=== PATIENT | female | born 1960 | race Caucasian/White ===

== ENCOUNTER 2023-12-05 15:34 | Inpatient (IN) | payer MEDICARE, MEDICAID, SELFPAY ==
[2023-12-05] VITALS (10 sets, daily range): BP systolic 124–144; BP diastolic 51–71; PULSE 82–96; RESP 18–24; TEMP 37.4–38; O2SAT 90–95; BMI 52.6
--- NOTE | 2023-12-05 15:51 | ED.EXTPRO ---
HPI - Extremity Problem General Chief complaint: Extremity Problem,Nontraumatic Stated complaint: Cellulitis Time Seen by Provider: 12/05/23 15:37 Source: patient and EMS Mode of arrival: EMS History of Present Illness HPI Narrative: Patient is a 63-year-old female she stated that her symptoms started approximately 1 month ago where she sustained a injury to her right lower extremity. It was not until about a week ago when she started to get redness around the area and some pain. No fevers. She was initially started on Keflex. Stated that her pain did not improve. She went to an outside emergency department last evening. Had an incision and drainage done. Was switched to doxycycline. Has not started the doxycycline because the pharmacy can not get her that medicine until tomorrow morning. She did have 1 dose prior to discharge. She states that she went home last evening and today she had drainage from the area to the point where she is soaked through the bandage and on her sheets and bed. She states that she feels like that she needs admitted to the hospital for IV antibiotics. Related Data Home Medications Medication Instructions Recorded Confirmed acetaminophen 500 mg tablet 1,000 mg BID PRN Pain (Scale Score 12/05/23 12/05/23 1-3) albuterol sulfate 2.5 mg/3 mL mg inhalation 12/05/23 (0.083 %) solution for nebulization apixaban 5 mg tablet (Eliquis) 5 mg PO BID 12/05/23 12/05/23 atorvastatin 40 mg tablet 40 mg PO DAILY 12/05/23 12/05/23 benzonatate 100 mg capsule mg PO PRN Cough 12/05/23 budesonide-formoterol HFA 160 inhalation 12/05/23 mcg-4.5 mcg/actuation aerosol inhaler (Symbicort) cholecalciferol (vitamin D3) 125 12/05/23 mcg (5,000 unit) tablet (Vitamin D3) digoxin 250 mcg (0.25 mg) tablet 250 mcg PO DAILY 12/05/23 12/05/23 diltiazem HCl 300 mg capsule,24 300 mg PO DAILY 12/05/23 12/05/23 hr,extended release doxycycline hyclate 100 mg tablet 100 mg PO BID 12/05/23 12/05/23 fluticasone propionate 50 spray intranasal 12/05/23 mcg/actuation nasal spray,suspension guaifenesin 600 mg tablet, 600 mg PO BID 12/05/23 12/05/23 extended release 12 hr hydroxyzine HCl 25 mg tablet PO Q6H PRN Anxiety 12/05/23 insulin glargine 100 unit/mL (3 10 unit SUBCUT 12/05/23 mL) subcutaneous pen (Lantus Solostar U-100 Insulin) levothyroxine 150 mcg tablet 150 mcg PO DAILY 12/05/23 12/05/23 liothyronine 25 mcg tablet 25 mcg PO DAILY 12/05/23 12/05/23 magnesium chloride 64 mg mg PO 12/05/23 tablet,extended release melatonin 3 mg tablet 9 mg PRN Insomnia 12/05/23 metformin 1,000 mg 24 hr 1,000 mg PO DAILY 12/05/23 12/05/23 tablet,extended release (gastric reten.) metformin 500 mg 24 hr 500 mg PO DAILY 12/05/23 12/05/23 tablet,extended release (gastric retention) methadone 10 mg tablet 10 mg PO BID 12/05/23 12/05/23 omeprazole 20 mg capsule,delayed 20 mg PO DAILY 12/05/23 12/05/23 release oxycodone 10 mg tablet 10 mg PO 3XD PRN Pain (Scale Score 12/05/23 12/05/23 7-10) potassium chloride 20 mEq 20 meq PO BID 12/05/23 12/05/23 tablet,extended release(part/cryst) pregabalin 75 mg capsule 75 mg PO BID 12/05/23 12/05/23 sennosides 8.6 mg tablet (senna) mg BID 12/05/23 sertraline 100 mg tablet 200 mg PO DAILY 12/05/23 12/05/23 sitagliptin phosphate 50 mg tablet 50 mg PO DAILY 12/05/23 12/05/23 (Januvia) tiotropium bromide 2.5 2 puff inhalation DAILY 12/05/23 12/05/23 mcg/actuation mist for inhalation (Spiriva Respimat) tizanidine 4 mg tablet PO Q6H PRN Muscle Spasm 12/05/23 torsemide 20 mg tablet 40 mg PO 12/05/23 torsemide 20 mg tablet 60 mg PO DAILY 12/05/23 12/05/23 Allergies Allergy/AdvReac Type Severity Reaction Status Date / Time Sulfa (Sulfonamide Allergy Verified 12/05/23 15:46 Antibiotics) Review of Systems Constitutional Constitutional: Reports system reviewed and no additional complaints, except as documented Musculoskeletal Musculoskeletal: Reports system reviewed and no additional complaints, except as documented Integumentary/Breasts Skin/Breast: Reports system reviewed and no additional complaints, except as documented Neurologic Neurologic: Reports system reviewed and no additional complaints, except as documented Patient History Medical History Anxiety Depression CHF (congestive heart failure) COPD (chronic obstructive pulmonary disease) Diabetic nephropathy GERD (gastroesophageal reflux disease) Hypothyroid Afib Diabetes Social History Smoking Status: Former smoker Smoking Status: Former smoker Substance Use Type: does not use Exam Initial Vital Signs Initial Vital Signs: Vital Signs Temperature 99.3 F 12/05/23 15:37 Pulse Rate 96 H 12/05/23 15:37 Respiratory Rate 18 12/05/23 15:37 Blood Pressure 144/67 H 12/05/23 15:37 Pulse Oximetry 94 12/05/23 15:37 Oxygen Delivery Method Room Air 12/05/23 15:37 Const General: No ill appearing HENMT Head: normal to inspection and normocephalic Skin Other: Patient has an extensive very redness to her right lower extremity. There is approximately a 2 cm incision with apparent packing coming out of this incision on her right anterior portion of the distal knee. It is draining a small amount of blood. Neuro Sensory Exam: no sensory deficits noted Extrem Other: Cellulitis to the right lower extremity Course Orders Ordered: ED Orders 12/05/23 16:03 Basic Metabolic Panel Stat Complete Blood Count AUTO DIFF Stat Lactate (Lactic Acid) Stat 12/05/23 16:17 Blood Culture Stat 12/05/23 16:59 Consult to Internal Medicine Stat CT LE RT w con Stat Vancomycin HCl (Vancomycin) 1,000 mg in 200 mls @ 200 mls/hr IV NOW ONE Stop: 12/05/23 17:55 Sodium Chloride (Normal Saline 0.9%) 1,000 mls @ 125 mls/hr IV CONT JENNIFER Last Admin: 12/05/23 17:22 Dose: 125 mls/hr Documented By: Discontinued Medications Doxycycline Hyclate (Doxycycline Hyclate 100 Mg Tablet) 100 mg PO NOW ONE Stop: 12/05/23 16:17 Last Admin: 12/05/23 16:33 Dose: 100 mg Documented By: RADHIKA Ceftriaxone Sodium 1,000 mg/ (Sodium Chloride) 100 mls @ 200 mls/hr IV NOW ONE Stop: 12/05/23 16:57 Last Admin: 12/05/23 17:00 Dose: 200 mls/hr Documented By: Lidocaine/Epinephrine (Lidocaine 2% W/Epi Inj 10 Ml Vial) 20 ml INJ INTRA-OP ONE Stop: 12/05/23 16:56 Vital Signs Vital signs: Vital Signs - 8 hr 12/05/23 15:37 12/05/23 15:44 12/05/23 16:00 Temperature 99.3 F Pulse Rate 96 H 93 H 93 H Respiratory Rate 18 Blood Pressure 144/67 H Pulse Oximetry 94 93 92 Oxygen Delivery Method Room Air 12/05/23 16:30 12/05/23 16:30 12/05/23 17:00 Temperature Pulse Rate 87 92 H Respiratory Rate 24 24 Blood Pressure 124/71 Pulse Oximetry 90 L 92 Oxygen Delivery Method 12/05/23 17:00 Temperature Pulse Rate Respiratory Rate Blood Pressure 125/58 L Pulse Oximetry Oxygen Delivery Method MDM - Extremity (Nontraumatic) Medical Records Attestation: I reviewed the patient's medical records. Lab Data Attestation: I reviewed the patient's lab results. 12/05/23 16:03 12/05/23 16:03 Labs: Lab Results 12/05/23 Range/Units 16:03 WBC 17.8 H (4.5-11.0) X10^3/uL RBC 3.68 L (4.0-5.2) X10^6/uL Hgb 8.7 L (12.0-16.0) g/dL Hct 26.5 L (36-46) % MCV 72.1 L (80-100) fL MCH 23.6 L (26-34) PG MCHC 32.7 (30-36) % RDW 18.0 H (11.6-14.8) % Plt Count 394 (150-400) X10^3/uL Neut % (Auto) 85.7 H (50-75) % Lymph % (Auto) 7.5 L (25-40) % [place] % (Auto) 5.2 (3-14) % Eos % (Auto) 1.3 L (2-4) % Baso % (Auto) 0.3 (0-2) % Neut # (Auto) 59037 H (1080-5674) /uL Lymph # (Auto) 1300 (5404-6591) /uL [place] # (Auto) 900 (0-900) /uL Eos # (Auto) 200 (0-450) /uL Baso # (Auto) 0 (0-100) /uL Sodium 134 L (137-145) mmol/L Potassium 4.2 (3.4-5.1) mmol/L Chloride 93 L (98-107) mmol/L Carbon Dioxide 32 (22-32) mmol/L BUN 26 H (7-17) mg/dL Creatinine 0.94 (0.52-1.04) mg/dL Estimated GFR > 60 (>60) mL/min BUN/Creatinine Ratio 27.7 H (6-22) Glucose 192 H (80-110) mg/dL Lactate 2.0 (0.7-2.1) mmol/L Calcium 8.6 (8.4-10.2) mg/dL MDM Narrative Medical decision making narrative: Review of the medical records shows that she was seen in an outpatient emergency department yesterday where she had an incision and drainage of an abscess on the anterior medial portion just distal to the knee. According to that note there was quite a bit of purulent drainage from the area. A packing was placed. She was febrile at the time and tachycardic but no labs were done. She was switched from Keflex to doxycycline. She was started on Keflex earlier in the week when she had an emergency department visit at an outside facility. At that time was not tachycardic and not febrile. It appears that the Keflex was not working for her. She returns today because of continued drainage which is not surprising given the incision and drainage. She was extensive redness to the right lower extremity. There was a line that was drawn around the redness but she states that was done earlier this week. The redness does extend quite a bit outside of the line. Patient was not tachycardic but does have heart rate greater than 90. She was afebrile. Has a leukocytosis of 17 with a left shift. Bedside ultrasound shows that the abscess that was drained yesterday appears to be completely decompressed. There was a 2nd abscess noted that appears to be distinct from the 1st 1 on the anterior lateral portion just distal to the knee. I did discuss the case with Dr. waller hospitalist on-call who recommended a CT scan for further evaluation. Patient initially was given oral doxycycline however then was given IV vancomycin and Rocephin. She has never been hypotensive. Lactate is 2. We will hold on incision and drainage of potential 2nd abscess until patient can be evaluated by General surgery. Discussed admission with the patient. She expressed understanding and agreement. Discharge Plan Departure Patient Disposition: Admitted As Inpatient Clinical Impression: Cellulitis Admit Date/Time: 12/05/23 17:02 Admit Provider: Jarrod Waller
[2023-12-05 16:13] LABS: Add Manual Diff / Slide Review NO; Basophils Absolute Auto 0 /uL (0-100); Basophils Percent Auto 0.3 % (0-2); Eosinophils Absolute Auto 200 /uL (0-450); Eosinophils Percent Auto 1.3 % (2-4); Hematocrit 26.5 % (36-46); Hemoglobin 8.7 g/dL (12.0-16.0); Lymphocytes Absolute Auto 1300 /uL (1100-4500); Lymphocytes Percent Auto 7.5 % (25-40); Mean Corpuscular HGB Conc 32.7 % (30-36); Mean Corpuscular Hemoglobin 23.6 PG (26-34); Mean Corpuscular Volume 72.1 fL (80-100); Monocytes Absolute Auto 900 /uL (0-900); Monocytes Percent Auto 5.2 % (3-14); Neutrophils Absolute Auto 15300 /uL (1500-7000); Neutrophils Percent Auto 85.7 % (50-75); Platelet Count 394 X10^3/uL (150-400); Red Blood Cell Count 3.68 X10^6/uL (4.0-5.2); White Blood Cell Count 17.8 X10^3/uL (4.5-11.0)
[2023-12-05 16:24] LABS: BUN Creatinine Ratio 27.7 (6-22); Blood Urea Nitrogen 26 mg/dL (7-17); Calcium 8.6 mg/dL (8.4-10.2); Carbon Dioxide 32 mmol/L (22-32); Chloride 93 mmol/L (98-107); Estimated Glomerular Filt Rate > 60 mL/min (>60); Glucose 192 mg/dL (80-110); HEMOLYSIS 32 (0-50); Potassium 4.2 mmol/L (3.4-5.1); Sodium 134 mmol/L (137-145)
[2023-12-05] MEDS: DOXYCYCLINE HYCLATE 100 MG TABLET PO (16:33)
--- NOTE | 2023-12-05 16:59 | DI.CT.S_ITS ---
PROCEDURE: CT LE RT W CON INDICATIONS: cellulitis from knee to ankle eval for deep abscess TECHNIQUE: After the administration of intravenous contrast, 3 mm axial sections acquired of the right lower extremity , with coronal and sagittal reformats. COMPARISON: None. FINDINGS: Image quality: Diagnostic. Bones: No acute osseous abnormality. Degenerative changes of the knee. No periosteal reaction or cortical erosion. Soft tissues: There is cutaneous thickening and subcutaneous irregularity at the anterior medial aspect of the mid lower leg consistent with history of cellulitis. There is subcutaneous fluid collection measuring approximately 9.1 x 3.9 x 5.3 cm (, ). The more anterior aspect of the fluid collection contains a foci of gas. The fluid collection and gas does not extend into the deep muscle compartment. There are prominent varicose veins. IMPRESSION: Right lower extremity cellulitis at the anterior medial aspect of the mid lower leg. Subcutaneous fluid collection with areas of gas concerning for abscess. No evidence of intramuscular or deep space infection. No acute bony abnormality. Approved by: Janell Manuel M.D.,Ph.D. on 12/05/2023 at 18:15
[2023-12-05] MEDS: cefTRIAXone 1,000 MG in SODIUM CHLORIDE 0.9% 100 ML 200 MG IV (17:00)
[2023-12-05] MEDS: SODIUM CHLORIDE 0.9% 1,000 ML 125 ML IV (17:22)
--- NOTE | 2023-12-05 17:51 | P.HP_ITS ---
History of Present Illness History of Present Illness Date Patient Seen: 12/05/23 Time Patient Seen: 17:51 Chief complaint: Cellulitis Narrative: This is a 63 F with PMH of DM2, GERD, Obesity, prior R foot osteomyelitis, chronic afib on anticoagulation, HTN, hypothyroidism, chronic pain on methadone, chronic lower extremity edema, reported diastolic heart failure who presents with right leg pain and worsening swelling. She was seen at an OSH ER yesterday, had an I&D of a right leg abscess. Antibiotics were changed from cephalexin to doxycycline and she was given an orthopedics referral from the ER as the wound was overlying her right knee. Patient lives at [facility] in [place]. She was brought to the [place] ER today for continued pain, worsening drianage from her bandages and concern about larger abscess. She denies fever, abdominal pain, nausea, vomiting, foot pain or hip pain. In the ER, she had elevated WBC at 17.8, but was afebrile. Glucose was 192, remainder of her chemistries were unremarkable. Bedside ultrasound with ER provider showed abscessess in multiple locations, CT scan was done which showed no knee joint involvement but did show 9x4x5 abscess. General surgery was asked to consult for operative I&D. She was admitted to medicine, started on ceftriaxone and vancomycin. [facility] Medical History Anxiety Depression CHF (congestive heart failure) COPD (chronic obstructive pulmonary disease) Diabetic nephropathy GERD (gastroesophageal reflux disease) Hypothyroid Afib Diabetes Surgical History History of incision and drainage Social History household members: none Smoking Status: Former smoker alcohol intake: never Meds Home Medications and Allergies Home Medications Medication Instructions Recorded Confirmed Type acetaminophen 500 mg tablet 1,000 mg BID PRN Pain (Scale Score 12/05/23 12/05/23 History 1-3) albuterol sulfate 2.5 mg/3 mL mg inhalation 12/05/23 History (0.083 %) solution for nebulization apixaban 5 mg tablet (Eliquis) 5 mg PO BID 12/05/23 12/05/23 History atorvastatin 40 mg tablet 40 mg PO DAILY 12/05/23 12/05/23 History benzonatate 100 mg capsule mg PO PRN Cough 12/05/23 History budesonide-formoterol HFA 160 inhalation 12/05/23 History mcg-4.5 mcg/actuation aerosol inhaler (Symbicort) cholecalciferol (vitamin D3) 125 12/05/23 History mcg (5,000 unit) tablet (Vitamin D3) digoxin 250 mcg (0.25 mg) tablet 250 mcg PO DAILY 12/05/23 12/05/23 History diltiazem HCl 300 mg capsule,24 300 mg PO DAILY 12/05/23 12/05/23 History hr,extended release doxycycline hyclate 100 mg tablet 100 mg PO BID 12/05/23 12/05/23 History fluticasone propionate 50 spray intranasal 12/05/23 History mcg/actuation nasal spray,suspension guaifenesin 600 mg tablet, 600 mg PO BID 12/05/23 12/05/23 History extended release 12 hr hydroxyzine HCl 25 mg tablet PO Q6H PRN Anxiety 12/05/23 History insulin glargine 100 unit/mL (3 10 unit SUBCUT 12/05/23 History mL) subcutaneous pen (Lantus Solostar U-100 Insulin) levothyroxine 150 mcg tablet 150 mcg PO DAILY 12/05/23 12/05/23 History liothyronine 25 mcg tablet 25 mcg PO DAILY 12/05/23 12/05/23 History magnesium chloride 64 mg mg PO 12/05/23 History tablet,extended release melatonin 3 mg tablet 9 mg PRN Insomnia 12/05/23 History metformin 1,000 mg 24 hr 1,000 mg PO DAILY 12/05/23 12/05/23 History tablet,extended release (gastric reten.) metformin 500 mg 24 hr 500 mg PO DAILY 12/05/23 12/05/23 History tablet,extended release (gastric retention) methadone 10 mg tablet 10 mg PO BID 12/05/23 12/05/23 History omeprazole 20 mg capsule,delayed 20 mg PO DAILY 12/05/23 12/05/23 History release oxycodone 10 mg tablet 10 mg PO 3XD PRN Pain (Scale Score 12/05/23 12/05/23 History 7-10) potassium chloride 20 mEq 20 meq PO BID 12/05/23 12/05/23 History tablet,extended release(part/cryst) pregabalin 75 mg capsule 75 mg PO BID 12/05/23 12/05/23 History sennosides 8.6 mg tablet (senna) mg BID 12/05/23 History sertraline 100 mg tablet 200 mg PO DAILY 12/05/23 12/05/23 History sitagliptin phosphate 50 mg tablet 50 mg PO DAILY 12/05/23 12/05/23 History (Januvia) tiotropium bromide 2.5 2 puff inhalation DAILY 12/05/23 12/05/23 History mcg/actuation mist for inhalation (Spiriva Respimat) tizanidine 4 mg tablet PO Q6H PRN Muscle Spasm 12/05/23 History torsemide 20 mg tablet 40 mg PO 12/05/23 History torsemide 20 mg tablet 60 mg PO DAILY 12/05/23 12/05/23 History Allergies Allergy/AdvReac Type Severity Reaction Status Date / Time Sulfa (Sulfonamide Allergy Verified 12/05/23 15:46 Antibiotics) Review of Systems Review of Systems Narrative: All other systems reviewed with the patient and are negative unless otherwise stated. Exam Vital Signs (past 8 hours): - 12/05/23 15:37 12/05/23 15:44 12/05/23 16:00 Temperature 99.3 F Pulse Rate 96 H 93 H 93 H Respiratory Rate 18 Blood Pressure 144/67 H Pulse Oximetry 94 93 92 Oxygen Delivery Method Room Air 12/05/23 16:30 12/05/23 16:30 12/05/23 17:00 Temperature Pulse Rate 87 92 H Respiratory Rate 24 24 Blood Pressure 124/71 Pulse Oximetry 90 L 92 Oxygen Delivery Method 12/05/23 17:00 Temperature Pulse Rate Respiratory Rate Blood Pressure 125/58 L Pulse Oximetry Oxygen Delivery Method Oxygen Delivery Method Room Air Narrative Exam Narrative: General:? Patient is well developed and well nourished, in no distress at this time. HEENT:? Normocephalic, atraumatic, extraocular muscles intact, oral pharynx is clear and mucous membranes are moist. Neck: supple and symmetric, trachea is midline, no cervical adenopathy. Negative for JVD Chest:? Normal AP diameter and contour without kyphoscoliosis, no tachypnea, equal chest rise bilaterally. Lungs:? CTA b/l no wheezing rhonchi or rales. Cardio:?RRR no m/r/g. Abdomen: S NT ND. No CVA tenderness. Musculoskeletal:? Muscle strength and tone are equal within normal limits, no deformity. Extremities: No edema or joint effusions. No cyanosis or clubbing. Skin:? Pale,? Warm to touch,dry and intact without rashes, ulcerations or petechiae.? Neuro:? Alert and orientated x3,? sensation to touch intact in all extremities, no gross deficits noted of cranial nerves. Psych:? Patient has a well-kept appearance, appropriate affect, mental status attitude thought context and judgment are appropriate for age. Objective Labs 12/05/23 16:03 12/05/23 16:03 Labs: Laboratory Results - last 24 hr 12/05/23 16:03 WBC 17.8 H RBC 3.68 L Hgb 8.7 L Hct 26.5 L MCV 72.1 L MCH 23.6 L MCHC 32.7 RDW 18.0 H Plt Count 394 Neut % (Auto) 85.7 H Lymph % (Auto) 7.5 L [place] % (Auto) 5.2 Eos % (Auto) 1.3 L Baso % (Auto) 0.3 Neut # (Auto) 74458 H Lymph # (Auto) 1300 [place] # (Auto) 900 Eos # (Auto) 200 Baso # (Auto) 0 Sodium 134 L Potassium 4.2 Chloride 93 L Carbon Dioxide 32 BUN 26 H Creatinine 0.94 Estimated GFR > 60 BUN/Creatinine Ratio 27.7 H Glucose 192 H Lactate 2.0 Calcium 8.6 Assessment & Plan Assessment & Plan narrative: 1. Right lower extremity abscess - continue ceftriaxone and azithromycin - surgical consultation for possible I&D, discussed with surgeon today and he will evaluate for possible OR I&D. - leukocytosis with WBC at 17, will continue to follow with cbc daily. 2. Type 2 diabetes with chronic insulin use - continue home lantus 10 U daily - FS ACHS - Low dose sliding scale ordered 3. Chronic atrial fibrillation - continue home digoxin, diltiazem - hold home anticoagulation for possible I&D - EKG ordered for possible pre-op evaluation given history of afib, continue telemetry for now. 4. Hypothyroidism - continue home levothyroxine and liothyronine 150 mcg / 25 mcg respectively. 5. Chronic pain - continue home methadone 10 mg BID, increased oxycodone to 10 mg prn q4 hr given acute pain, and dilaudid IV for severe pain. 6. Chronic lower extremity edema - continue home torsemide 60 mg daily 7. COPD without exacerbation - RT eval and treat, replace home medications with formulary nebulizer treatments. For now ordered for pulmicort, duo-neb, and as needed albuterol. 8. Obesity The patient is at much higher risk for medical and surgical complications because of their obesity. This increases the difficulty and complexity of medical and surgical interventions and increases the chances of poor outcomes such as morbidity and mortality. Code: Full, surrogate is patient's daughter DVT: Hold pending surgical evaluation, patient is on chronic anticoagulation I have utilized all available immediate resources to obtain, update, or review the patient's current medications. Dispo: patient admitted under inpatient status. Unclear if will be able to discharge home to assisted living or possible SNF, will have PT/OT evaluations after above surgical evaluation. Anticipated length of stay is >2 midnights. Additional history obtained via discussions with the ER provider and surgeon. These discussions contributed to the creation of the above assessment and plan. I have reviewed patient's presenting documentation, labs, and imaging personally. Time-Based Coding :: [TOTAL MINUTES] spent with patient and on the chart (including review of chart, obtaining history, exam, reviewing outside data, placing orders, documenting exam and treatment plan, and counseling patient) on [DATE]. Quality MIPS - Admit I confirm the patient?s Advance Care Plan is present, Code status is documented, Surrogate decision maker is in patient?s record [If Yes, STOP here]: Yes
[2023-12-05] MEDS: VANCOMYCIN 2,000 MG/400 ML PIGGYBACK 200 MG IV (18:19)
[2023-12-05] MEDS: OXYCODONE IR 5 MG TABLET PO (18:19)
[2023-12-05] MEDS: BUDESONIDE 0.5 MG/2 ML NEB INH (20:00)
--- NOTE | 2023-12-05 20:14 | P.CONS_ITS ---
History of Present Illness Consult details Date Patient Seen: 12/05/23 Time Patient Seen: 20:14 Chief complaint: Cellulitis Narrative: 63-year-old woman PMH morbid obesity (BMI 53 ), wheelchair-bound, insulin- dependent diabetes chronic pain, AFib on anticoagulation seen for a wound of her right lower extremity. She had a wound present for the past week was initially treated with Keflex failed to respond and was seen at [facility] emergency room yesterday where she underwent a limited incision and drainage of the right lower extremity at the level of the knee. Today she was worse and was brought by EMS to [facility] for further evaluation. CT lower extremity demonstrates a 10 cm fluid collection which does not involve the joint. Meds Home Medications and Allergies Home Medications Medication Instructions Recorded Confirmed Type acetaminophen 500 mg tablet 1,000 mg BID PRN Pain (Scale Score 12/05/23 12/05/23 History 1-3) albuterol sulfate 2.5 mg/3 mL mg inhalation 12/05/23 History (0.083 %) solution for nebulization apixaban 5 mg tablet (Eliquis) 5 mg PO BID 12/05/23 12/05/23 History atorvastatin 40 mg tablet 40 mg PO DAILY 12/05/23 12/05/23 History benzonatate 100 mg capsule 100 mg PO PRN PRN Cough 12/05/23 12/05/23 History budesonide-formoterol HFA 160 inhalation 12/05/23 History mcg-4.5 mcg/actuation aerosol inhaler (Symbicort) cholecalciferol (vitamin D3) 125 12/05/23 History mcg (5,000 unit) tablet (Vitamin D3) digoxin 250 mcg (0.25 mg) tablet 250 mcg PO DAILY 12/05/23 12/05/23 History diltiazem HCl 300 mg capsule,24 300 mg PO DAILY 12/05/23 12/05/23 History hr,extended release doxycycline hyclate 100 mg tablet 100 mg PO BID 12/05/23 12/05/23 History fluticasone propionate 50 2 spray intranasal QAM ALLERGY 12/05/23 12/05/23 History mcg/actuation nasal spray,suspension guaifenesin 600 mg tablet, 600 mg PO BID 12/05/23 12/05/23 History extended release 12 hr hydroxyzine HCl 25 mg tablet PO Q6H PRN Anxiety 12/05/23 History insulin glargine 100 unit/mL (3 10 unit SUBCUT 12/05/23 History mL) subcutaneous pen (Lantus Solostar U-100 Insulin) levothyroxine 150 mcg tablet 150 mcg PO DAILY 12/05/23 12/05/23 History liothyronine 25 mcg tablet 25 mcg PO DAILY 12/05/23 12/05/23 History magnesium chloride 64 mg mg PO 12/05/23 History tablet,extended release melatonin 3 mg tablet 9 mg PRN Insomnia 12/05/23 History metformin 1,000 mg 24 hr 1,000 mg PO DAILY 12/05/23 12/05/23 History tablet,extended release (gastric reten.) metformin 500 mg 24 hr 500 mg PO DAILY 12/05/23 12/05/23 History tablet,extended release (gastric retention) methadone 10 mg tablet 10 mg PO BID 12/05/23 12/05/23 History omeprazole 20 mg capsule,delayed 20 mg PO DAILY 12/05/23 12/05/23 History release oxycodone 10 mg tablet 10 mg PO 3XD PRN Pain (Scale Score 12/05/23 12/05/23 History 7-10) potassium chloride 20 mEq 20 meq PO BID 12/05/23 12/05/23 History tablet,extended release(part/cryst) pregabalin 75 mg capsule 75 mg PO BID 12/05/23 12/05/23 History sennosides 8.6 mg tablet (senna) mg BID 12/05/23 History sertraline 100 mg tablet 200 mg PO DAILY 12/05/23 12/05/23 History sitagliptin phosphate 50 mg tablet 50 mg PO DAILY 12/05/23 12/05/23 History (Januvia) tiotropium bromide 2.5 2 puff inhalation DAILY 12/05/23 12/05/23 History mcg/actuation mist for inhalation (Spiriva Respimat) tizanidine 4 mg tablet PO Q6H PRN Muscle Spasm 12/05/23 History torsemide 20 mg tablet 40 mg PO 12/05/23 History torsemide 20 mg tablet 60 mg PO DAILY 12/05/23 12/05/23 History Allergies Allergy/AdvReac Type Severity Reaction Status Date / Time Sulfa (Sulfonamide Allergy Verified 12/05/23 15:46 Antibiotics) Exam Vital Signs (past 8 hours): - 07/19/24 15:37 12/05/23 15:44 12/05/23 16:00 Temperature 99.3 F Pulse Rate 96 H 93 H 93 H Respiratory Rate 18 Blood Pressure 144/67 H Pulse Oximetry 94 93 92 Oxygen Delivery Method Room Air 12/05/23 16:30 12/05/23 16:30 12/05/23 17:00 Temperature Pulse Rate 87 92 H Respiratory Rate 24 24 Blood Pressure 124/71 Pulse Oximetry 90 L 92 Oxygen Delivery Method 12/05/23 17:00 12/05/23 17:26 12/05/23 17:26 Temperature Pulse Rate 86 Respiratory Rate 19 Blood Pressure 125/58 L 144/65 H Pulse Oximetry 94 Oxygen Delivery Method 12/05/23 17:30 12/05/23 18:56 12/05/23 19:13 Temperature 100.4 F H Pulse Rate 89 82 Respiratory Rate 19 18 Blood Pressure 129/51 L Pulse Oximetry 92 95 94 Oxygen Delivery Method Room Air 12/05/23 20:12 Temperature Pulse Rate Respiratory Rate Blood Pressure Pulse Oximetry Oxygen Delivery Method Room Air Oxygen Delivery Method Room Air Narrative Exam Narrative: General morbidly obese woman alert oriented no distress Chest nonlabored respiration Right lower extremity fluctuance around the knee with cellulitis spreading down the flores. No crepitus Objective Labs 12/05/23 16:03 12/05/23 16:03 Labs: Laboratory Results - last 24 hr 12/05/23 16:03 WBC 17.8 H RBC 3.68 L Hgb 8.7 L Hct 26.5 L MCV 72.1 L MCH 23.6 L MCHC 32.7 RDW 18.0 H Plt Count 394 Neut % (Auto) 85.7 H Lymph % (Auto) 7.5 L [place] % (Auto) 5.2 Eos % (Auto) 1.3 L Baso % (Auto) 0.3 Neut # (Auto) 29430 H Lymph # (Auto) 1300 [place] # (Auto) 900 Eos # (Auto) 200 Baso # (Auto) 0 Sodium 134 L Potassium 4.2 Chloride 93 L Carbon Dioxide 32 BUN 26 H Creatinine 0.94 Estimated GFR > 60 BUN/Creatinine Ratio 27.7 H Glucose 192 H Lactate 2.0 Calcium 8.6 PFSH Medical History Anxiety Depression CHF (congestive heart failure) COPD (chronic obstructive pulmonary disease) Diabetic nephropathy GERD (gastroesophageal reflux disease) Hypothyroid Afib Diabetes Surgical History History of incision and drainage Social History household members: none Tobacco & Substance Use Smoking Status: Former smoker alcohol intake: never Assessment & Plan Assessment & Plan narrative: 63-year-old woman morbid obesity insulin-dependent diabetes atrial fibrillation on chronic anticoagulation with an abscess of the right lower extremity. Will need incision and drainage with possible placement of wound VAC. she understands she is high-risk for any procedure given her significant comorbidities. Operative risks including hemorrhage, worsening infection, heart attack, stroke and were reviewed. She provides her verbal consent to proceed. Formal written consent will be obtained tomorrow -NPO after midnight -continue antibiotics -hold anticoagulation Time-Based Coding :: [TOTAL MINUTES] spent with patient and on the chart (including review of chart, obtaining history, exam, reviewing outside data, placing orders, documenting exam and treatment plan, and counseling patient) on [DATE].
[2023-12-05] MEDS: ATORVASTATIN 20 MG TABLET 40 MG PO (20:54)
[2023-12-05] MEDS: PREGABALIN 75 MG CAPSULE PO (20:54)
[2023-12-05] MEDS: METHADONE 10 MG TABLET PO (20:54)
[2023-12-05] MEDS: OXYCODONE IR 10 MG TABLET PO (21:23)
[2023-12-05] MEDS: INSULIN LISPRO 100 UNIT/ML 3ML VIAL SUBCUT (21:23)
[2023-12-06] VITALS (22 sets, daily range): BP systolic 100–146; BP diastolic 56–81; PULSE 70–103; RESP 11–24; TEMP 36.2–37.3; O2SAT 89–100; BMI 52.6
[2023-12-06] MEDS: VANCOMYCIN 1,000 MG/200 ML PIGGYBACK 200 MG IV ×3 (04:21→20:30)
[2023-12-06 07:49] LABS: Add Manual Diff / Slide Review NO; Basophils Absolute Auto 0 /uL (0-100); Basophils Percent Auto 0.3 % (0-2); Eosinophils Absolute Auto 300 /uL (0-450); Eosinophils Percent Auto 2.5 % (2-4); Hematocrit 24.4 % (36-46); Hemoglobin 7.9 g/dL (12.0-16.0); Lymphocytes Absolute Auto 1400 /uL (1100-4500); Lymphocytes Percent Auto 10.3 % (25-40); Mean Corpuscular HGB Conc 32.4 % (30-36); Mean Corpuscular Hemoglobin 23.8 PG (26-34); Mean Corpuscular Volume 73.4 fL (80-100); Monocytes Absolute Auto 700 /uL (0-900); Monocytes Percent Auto 5.2 % (3-14); Neutrophils Absolute Auto 11300 /uL (1500-7000); Neutrophils Percent Auto 81.7 % (50-75); Platelet Count 371 X10^3/uL (150-400); Red Blood Cell Count 3.33 X10^6/uL (4.0-5.2); Red Cell Distribution Width 18.3 % (11.6-14.8); White Blood Cell Count 13.9 X10^3/uL (4.5-11.0)
[2023-12-06 07:51] LABS: Alanine Aminotransferase 15 IU/L (<35); Albumin 3.4 g/dL (3.5-5.0); Albumin Globulin Ratio 1.2 (1.0-2.8); Alkaline Phosphatase 105 U/L (38-126); Aspartate Aminotransferase 20 IU/L (14-36); BUN Creatinine Ratio 33.3 (6-22); Bilirubin Total 0.6 mg/dL (0.2-1.3); Blood Urea Nitrogen 24 mg/dL (7-17); Calcium 8.5 mg/dL (8.4-10.2); Carbon Dioxide 31 mmol/L (22-32); Chloride 96 mmol/L (98-107); Estimated Glomerular Filt Rate > 60 mL/min (>60); Globulin 2.8 g/dL (1.7-4.1); Glucose 118 mg/dL (80-110); HEMOLYSIS < 15 (0-50); Hemoglobin A1C% w Est Avg Glu 6.9 % (4.0-6.0); Magnesium 1.9 mg/dL (1.6-2.3); Potassium 3.7 mmol/L (3.4-5.1); Sodium 135 mmol/L (137-145); Total Protein 6.2 g/dL (6.3-8.2)
[2023-12-06] MEDS: BUDESONIDE 0.5 MG/2 ML NEB INH ×2 (08:16→18:38)
[2023-12-06] MEDS: ALBUTEROL/IPRATROPIUM 3 ML AMPUL INH ×3 (08:16→18:39)
[2023-12-06] MEDS: OXYCODONE IR 10 MG TABLET PO ×3 (08:57→16:24)
[2023-12-06] MEDS: METHADONE 10 MG TABLET PO ×2 (08:57→20:31)
[2023-12-06] MEDS: INSULIN GLARGINE 100 UNIT/ML 3ML PEN 10 UNIT SUBCUT (08:59)
[2023-12-06] MEDS: ACETAMINOPHEN IV 1,000 MG/100 ML VIAL 400 MG IV (09:20)
[2023-12-06] MEDS: PANTOPRAZOLE 40 MG VIAL 20 MG IV (09:21)
[2023-12-06] MEDS: LACTATED RINGERS 1,000 ML 42 ML IV (09:21)
--- NOTE | 2023-12-06 09:31 | PM.PREOP ---
Pre-operative Note Interval Note History & Physical reviewed/Exam performed by Physician: Yes Changes to H&P: No
--- NOTE | 2023-12-06 10:18 | SUR.OPER ---
Supine on padded OR bed, head on pillowAND LARGE WEDGE TO ELEVATE PT arms secured on padded arm boards at sides , legs uncrossed, safety belt at thigh, tape over blanket over lower legs.
[2023-12-06] MEDS: HYDROMORPHONE 1 MG INJ IV ×6 (11:02→21:12)
[2023-12-06] MEDS: OXYCODONE IR 5 MG TABLET PO (11:21)
[2023-12-06] MEDS: LIOTHYRONINE 5 MCG TABLET 25 MCG PO (12:04)
[2023-12-06] MEDS: TORSEMIDE 10 MG TABLET 60 MG PO (12:04)
[2023-12-06] MEDS: dilTIAZem CD 120 MG CAP 240 MG PO (12:05)
[2023-12-06] MEDS: DIGOXIN 0.125 MG TABLET 0.25 MG PO (12:05)
[2023-12-06] MEDS: SERTRALINE 50 MG TABLET 200 MG PO (12:05)
[2023-12-06] MEDS: INSULIN LISPRO 100 UNIT/ML 3ML VIAL SUBCUT ×2 (12:37→17:50)
[2023-12-06] MEDS: PREGABALIN 75 MG CAPSULE PO ×2 (12:37→20:29)
--- NOTE | 2023-12-06 12:37 | P.OP_ITS ---
Operative Date/Time/Diagnoses Date of procedure: 12/06/23 Time of procedure: 12:37 Pre-op diagnosis: Right lower extremity abscess Post-op diagnosis: same Procedure & Clinicians Procedure: Incision and drainage of right lower extremity abscess Placement of negative pressure dressing Same procedure as scheduled: Yes Indications: 63-year-old woman morbidly obese diabetic wheelchair bound who was treated for right lower extremity abscess at an outside facility with small incision and drainage. She is admitted to [facility] with worsening pain of the leg and CT demonstrates a large undrained fluid collection. Surgeon: Tejas Zavaleta Click Yes if Unassisted: Yes Anesthesia Type: General Operative Notes Findings: Tunneling of the wound. Areas of nonviable skin. Less than 100 mL of purulent drainage. Total total wound measures 20 cm x 9 x 4 cm down to the fascia Specimen(s): other (Right lower extremity wound) Estimated Blood Loss (mL): 100 Procedure in detail: Patient was brought to the operating room placed supine on the table. General anesthesia was induced she was intubated with an endotracheal tube. She would received IV antibiotic therapy shortly before arriving in the operating room. Time-out was performed. The wound was then prepped and draped in sterile fashion. The previous incision and drainage site over the right lower extremity at the level of the knee was extended. There was fairly extensive tunneling within the abscess cavity. The cavity was entirely drained. There was multiple areas of nonviable skin and soft tissue which were sharply excised however this does not appear to be a necrotizing wound. Specimen was sent for culture. Hemostasis was achieved. The extent of the wound was 20 x 9 x 4 cm down to the fascia. A negative pressure wound was applied. She emerged from anesthesia and was transferred to recovery in stable condition. Complications: none Post-operative Condition: stable Disposition: Acute Care
--- NOTE | 2023-12-06 14:27 | P.PN_ITS ---
Subjective Subjective Interval history: 63 F multiple chronic medical conditions admitted with R leg abscess, s/p I&D with surgery today with wound vac placement. Her pain is better today, leg remains swelling. Overall feeling a bit better. Exam Vital Signs (past 8 hours): - 12/06/23 07:00 12/06/23 08:00 12/06/23 08:16 Temperature 97.6 F Pulse Rate 72 74 Respiratory Rate 19 18 Blood Pressure 111/65 Pulse Oximetry 94 96 Oxygen Delivery Method Room Air CPAP Room Air Oxygen Flow Rate 12/06/23 09:29 12/06/23 10:47 12/06/23 10:52 Temperature 98.1 F 97.1 F L Pulse Rate 86 97 H 97 H Respiratory Rate 24 11 L 15 Blood Pressure 146/60 H 138/74 106/70 Pulse Oximetry 89 L 100 92 Oxygen Delivery Method Room Air Simple Mask Nasal Cannula Oxygen Flow Rate 4 3 12/06/23 10:57 12/06/23 11:07 12/06/23 11:13 Temperature Pulse Rate 99 H 89 97 H Respiratory Rate 16 15 12 Blood Pressure 127/75 135/57 L 125/81 Pulse Oximetry 97 97 96 Oxygen Delivery Method Nasal Cannula Nasal Cannula Nasal Cannula Oxygen Flow Rate 3 3 3 12/06/23 11:17 12/06/23 11:22 12/06/23 11:45 Temperature 98.1 F Pulse Rate 91 H 96 H 94 H Respiratory Rate 11 L 11 L 16 Blood Pressure 140/72 117/57 L 105/56 L Pulse Oximetry 95 95 95 Oxygen Delivery Method Nasal Cannula Nasal Cannula Oxygen Flow Rate 3 3 1 12/06/23 12:05 12/06/23 12:15 12/06/23 12:45 Temperature 98.1 F 97.1 F L Pulse Rate 97 H 99 H 90 Respiratory Rate 18 19 Blood Pressure 117/60 129/62 117/58 L Pulse Oximetry 93 91 Oxygen Delivery Method Oxygen Flow Rate 1 Oxygen Delivery Method Nasal Cannula Oxygen Flow Rate 1 Narrative Exam Narrative: Gen: no acute distress Pulm: CTA b/l CV: RRR no m/r/g Abd: S NT ND Ext: b/l leg swelling, left venous stasis. R leg non pitting edema with erythema warmth and now R wound vac with serous output. Objective Labs 12/06/23 07:07 12/06/23 07:07 Labs: Laboratory Results - last 24 hr 12/05/23 12/06/23 16:03 07:07 WBC 17.8 H 13.9 H RBC 3.68 L 3.33 L Hgb 8.7 L 7.9 L Hct 26.5 L 24.4 L MCV 72.1 L 73.4 L MCH 23.6 L 23.8 L MCHC 32.7 32.4 RDW 18.0 H 18.3 H Plt Count 394 371 Neut % (Auto) 85.7 H 81.7 H Lymph % (Auto) 7.5 L 10.3 L [place] % (Auto) 5.2 5.2 Eos % (Auto) 1.3 L 2.5 Baso % (Auto) 0.3 0.3 Neut # (Auto) 81166 H 36832 H Lymph # (Auto) 1300 1400 [place] # (Auto) 900 700 Eos # (Auto) 200 300 Baso # (Auto) 0 0 Sodium 134 L 135 L Potassium 4.2 3.7 Chloride 93 L 96 L Carbon Dioxide 32 31 BUN 26 H 24 H Creatinine 0.94 0.72 Estimated GFR > 60 > 60 BUN/Creatinine Ratio 27.7 H 33.3 H Glucose 192 H 118 H Hemoglobin A1c 6.9 H Lactate 2.0 Calcium 8.6 8.5 Magnesium 1.9 Total Bilirubin 0.6 AST 20 ALT 15 Alkaline Phosphatase 105 Total Protein 6.2 L Albumin 3.4 L Globulin 2.8 Albumin/Globulin Ratio 1.2 PFSH Medical History Anxiety Depression CHF (congestive heart failure) COPD (chronic obstructive pulmonary disease) Diabetic nephropathy GERD (gastroesophageal reflux disease) Hypothyroid Afib Diabetes Surgical History History of incision and drainage Social History household members: none Smoking Status: Former smoker alcohol intake: never Assessment & Plan Assessment & Plan narrative: 1. Right lower extremity abscess - continue ceftriaxone and vancomycin - Appreciate surgical management, s/p I&D on 12/05 with wound vac placement. - follow up operative and blood cultures. 2. Type 2 diabetes with chronic insulin use - continue home lantus 10 U daily - FS ACHS - Low dose sliding scale ordered - A1c 6.9% 3. Chronic atrial fibrillation - continue home digoxin, diltiazem - hold home anticoagulation for today, resume tomorrow - continue telemetry today, if remains rate controlled can stop tomorrow. 4. Hypothyroidism - continue home levothyroxine and liothyronine 150 mcg / 25 mcg respectively. 5. Chronic pain - continue home methadone 10 mg BID, increased oxycodone to 10 mg prn q4 hr given acute pain, and dilaudid IV for severe pain. 6. Chronic lower extremity edema - continue home torsemide 60 mg daily 7. COPD without exacerbation - RT eval and treat, replace home medications with formulary nebulizer treatments. For now ordered for pulmicort, duo-neb, and as needed albuterol. 8. Obesity The patient is at much higher risk for medical and surgical complications because of their obesity. This increases the difficulty and complexity of medical and surgical interventions and increases the chances of poor outcomes such as morbidity and mortality. Code: Full, surrogate is patient's daughter DVT: Hold pending surgical evaluation, patient is on chronic anticoagulation I have utilized all available immediate resources to obtain, update, or review the patient's current medications. Dispo: patient admitted under inpatient status. Unclear if will be able to discharge home to assisted living or possible SNF, will have PT/OT evaluations and will need to determine wound care plan. Likely discharge in 2-3 days. Additional history obtained via discussions with the surgeon. These discussions contributed to the creation of the above assessment and plan. I have reviewed patient's presenting documentation, labs, and imaging personally. Time-Based Coding :: [TOTAL MINUTES] spent with patient and on the chart (including review of chart, obtaining history, exam, reviewing outside data, placing orders, documenting exam and treatment plan, and counseling patient) on [DATE]. Quality VTE Deep Vein Thrombosis/Pulmonary Embolism Present on Admission: No
--- NOTE | 2023-12-06 14:47 | CM.DANOTE ---
Patient is a 63 yo female who was admitted Inpt Status on 12/05/23 for Cellulitis/Abscess. Pt has [facility] and [facility] for insurance and her PCP is not listed. EMR was reviewed. Per MD, pt with hx of osteomyelitis and chronic pain and attempted outpt I&D and abx and failed and admitted for abscess and cellulitis. Per Surgeon, took pt to OR for significant incision for I&D and placed wound vac and continue IV-Abx and wound vac likely needed at d/c. SW met bedside with pt and explained role and pt confirms she now lives at [facility] in [place] and mostly has assist for meds and meals. Pt has been mostly w/c bound and has been completing her own transfers to w/c and showering/hygiene herself. Pt has Dtr and family who live on [facility] as well and is at [place] under her Medicaid. Pt confirms that she is currently open with [facility] for therapies and RN for wound care for the osteo on her foot. Pt has hx of [facility] after her admission to [facility] for osteo. 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 SW discussed likely need of IV-Abx and wound vac at d/ and strong likelihood of SNF for managing both as IV-Abx and wound vac a barrier typically to Assisted Living Facilities. Pt's preference would be to return to [facility] with home infusion and [facility] and REALLY does not want to risk losing her apt at [place]. SW provided the SNF Choice List and pt agreeable with referrals to [facility] due to location as SW discussed one barrier to referral to [facility] would be transportation and pt decided she would not likely want to transport that far anyways even if able to get transport through Medicaid. SW made referral to [facility] and [facility] and they will review. SW did not call [facility] yet since it's the weekend and will need to wait for admin staff to confirm pt would not lose her room if she went to SNF and also confirm that pt could not go there with home infusion and wound vac. 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 No Advance Directives on File No History Provided By Patient,Medical Record Has Patient been admitted in last 30 No days? Prior Living Arrangements Assisted Living Comment [facility] Household Members none Type of transporation used prior to Relies on Others admit Willing to Return to Facility? Yes: [facility] Independent with ADL's Yes: gets help with meds and meals Is patient alert and oriented? Yes Needs Assistance With Meal Prep,Managing Medications ,Home Chores / Shopping Caregiver for Another No Community Services used prior to Physical Therapy,Home Health admission: Nurse DME Already Rented / Owned Oxygen Comment Bipap/CPAP Patient/Family Preference Detention Facility Barriers to Discharge Yes Comment wound vac, doesn't want to lose her spot at [place] Discharge Plan Detention Facility Transportation Arrangement likely facility van Referrals Initiated Detention Medicare Choice List Provided Yes Medicare choice list reviewed on patient electronic tablet with SNF/HH Preference [facility] or [facility] for location Has Agency SNF been contacted Yes Whiteboard Updated in Patient Room with Yes name and ext. # of Spray Gun Operator Review Status In Process Please Provide Date Initial DC 12/06/23 Assessment Was Performed Next Review Type Continued Stay Review
[2023-12-06] MEDS: cefTRIAXone 1,000 MG in SODIUM CHLORIDE 0.9% 100 ML 200 MG IV (16:23)
[2023-12-06] MEDS: ATORVASTATIN 20 MG TABLET 40 MG PO (20:29)
[2023-12-06] MEDS: SODIUM CHLORIDE 0.9% FLUSH 10 ML IV (20:32)
[2023-12-07] VITALS (14 sets, daily range): BP systolic 104–126; BP diastolic 51–68; PULSE 65–101; RESP 16–18; TEMP 36.2–37; O2SAT 92–100
[2023-12-07] MEDS: OXYCODONE IR 10 MG TABLET PO ×6 (00:38→22:17)
[2023-12-07 03:49] LABS: Add Manual Diff / Slide Review NO; Basophils Absolute Auto 0 /uL (0-100); Basophils Percent Auto 0.4 % (0-2); Eosinophils Absolute Auto 400 /uL (0-450); Eosinophils Percent Auto 3.2 % (2-4); Hemoglobin 7.2 g/dL (12.0-16.0); Lymphocytes Absolute Auto 1400 /uL (1100-4500); Lymphocytes Percent Auto 11.8 % (25-40); Mean Corpuscular HGB Conc 32.5 % (30-36); Mean Corpuscular Hemoglobin 23.3 PG (26-34); Mean Corpuscular Volume 71.5 fL (80-100); Monocytes Absolute Auto 700 /uL (0-900); Monocytes Percent Auto 5.6 % (3-14); Neutrophils Absolute Auto 9700 /uL (1500-7000); Platelet Count 394 X10^3/uL (150-400); Red Blood Cell Count 3.07 X10^6/uL (4.0-5.2); Red Cell Distribution Width 17.9 % (11.6-14.8); White Blood Cell Count 12.2 X10^3/uL (4.5-11.0)
[2023-12-07 04:04] LABS: Vancomycin Trough 13.9 ug/mL (10-20)
[2023-12-07 04:05] LABS: Alanine Aminotransferase 15 IU/L (<35); Albumin 3.4 g/dL (3.5-5.0); Albumin Globulin Ratio 1.1 (1.0-2.8); Alkaline Phosphatase 96 U/L (38-126); Aspartate Aminotransferase 20 IU/L (14-36); Bilirubin Total 0.4 mg/dL (0.2-1.3); Blood Urea Nitrogen 24 mg/dL (7-17); Calcium 8.1 mg/dL (8.4-10.2); Carbon Dioxide 32 mmol/L (22-32); Chloride 95 mmol/L (98-107); Estimated Glomerular Filt Rate > 60 mL/min (>60); Glucose 134 mg/dL (80-110); HEMOLYSIS < 15 (0-50); Magnesium 1.9 mg/dL (1.6-2.3); Potassium 3.3 mmol/L (3.4-5.1); Sodium 135 mmol/L (137-145); Total Protein 6.4 g/dL (6.3-8.2)
[2023-12-07] MEDS: LEVOTHYROXINE 75 MCG TABLET 150 MCG PO (04:52)
[2023-12-07] MEDS: VANCOMYCIN 1,000 MG/200 ML PIGGYBACK 200 MG IV ×3 (04:53→20:31)
[2023-12-07] MEDS: PANTOPRAZOLE DR 20 MG TABLET PO (05:02)
[2023-12-07] MEDS: ALBUTEROL/IPRATROPIUM 3 ML AMPUL INH ×4 (07:30→19:21)
[2023-12-07] MEDS: BUDESONIDE 0.5 MG/2 ML NEB INH ×2 (07:30→19:21)
[2023-12-07] MEDS: POTASSIUM CHLORIDE 20 MEQ TAB 40 MEQ PO ×2 (07:33→12:21)
[2023-12-07] MEDS: INSULIN GLARGINE 100 UNIT/ML 3ML PEN 10 UNIT SUBCUT (08:01)
[2023-12-07] MEDS: INSULIN LISPRO 100 UNIT/ML 3ML VIAL SUBCUT ×4 (08:01→20:32)
[2023-12-07] MEDS: TORSEMIDE 10 MG TABLET 60 MG PO (08:02)
[2023-12-07] MEDS: METHADONE 10 MG TABLET PO ×2 (08:02→20:30)
[2023-12-07] MEDS: dilTIAZem CD 120 MG CAP 240 MG PO (08:02)
[2023-12-07] MEDS: LIOTHYRONINE 5 MCG TABLET 25 MCG PO (08:02)
[2023-12-07] MEDS: PREGABALIN 75 MG CAPSULE PO ×2 (08:03→20:30)
[2023-12-07] MEDS: SERTRALINE 50 MG TABLET 200 MG PO (08:03)
[2023-12-07] MEDS: DIGOXIN 0.125 MG TABLET 0.25 MG PO (08:03)
[2023-12-07] MEDS: ACETAMINOPHEN 325 MG TABLET 650 MG PO (08:56)
[2023-12-07] MEDS: SODIUM CHLORIDE 0.9% FLUSH 10 ML IV ×2 (08:56→20:31)
[2023-12-07] MEDS: HYDROMORPHONE 1 MG INJ IV ×3 (09:23→21:36)
--- NOTE | 2023-12-07 09:58 | PM.PNPO.1 ---
Subjective Subjective Date Patient Seen: 12/07/23 Time Patient Seen: 09:58 Interval history: No acute events I and D with excisional debridement yesterday for right lower extremity wound Exam Vital Signs (past 8 hours): - 12/07/23 02:00 12/07/23 03:30 12/07/23 06:00 Temperature 97.4 F L Pulse Rate 101 H Respiratory Rate 16 Blood Pressure 126/68 Pulse Oximetry 94 95 95 Oxygen Delivery Method Room Air Room Air Oxygen Flow Rate 12/07/23 07:30 12/07/23 07:58 12/07/23 08:03 Temperature 98.4 F Pulse Rate 85 85 85 Respiratory Rate 18 18 Blood Pressure 120/57 L 126/68 Pulse Oximetry 92 100 Oxygen Delivery Method BiPAP Oxygen Flow Rate 1 Oxygen Delivery Method BiPAP Oxygen Flow Rate 1 Narrative Exam Narrative: General morbidly obese woman alert oriented no distress Right lower extremity with resolving cellulitis wound VAC holding suction Objective Labs 12/07/23 03:40 12/07/23 03:40 Labs: Laboratory Results - last 24 hr 12/07/23 03:40 WBC 12.2 H RBC 3.07 L Hgb 7.2 L Hct 22.0 L MCV 71.5 L MCH 23.3 L MCHC 32.5 RDW 17.9 H Plt Count 394 Neut % (Auto) 79.0 H Lymph % (Auto) 11.8 L [place] % (Auto) 5.6 Eos % (Auto) 3.2 Baso % (Auto) 0.4 Neut # (Auto) 9700 H Lymph # (Auto) 1400 [place] # (Auto) 700 Eos # (Auto) 400 Baso # (Auto) 0 Sodium 135 L Potassium 3.3 L Chloride 95 L Carbon Dioxide 32 BUN 24 H Creatinine 0.89 Estimated GFR > 60 BUN/Creatinine Ratio 27.0 H Glucose 134 H Calcium 8.1 L Magnesium 1.9 Total Bilirubin 0.4 AST 20 ALT 15 Alkaline Phosphatase 96 Total Protein 6.4 Albumin 3.4 L Globulin 3.0 Albumin/Globulin Ratio 1.1 Vancomycin Trough 13.9 PFSH Medical History Anxiety Depression CHF (congestive heart failure) COPD (chronic obstructive pulmonary disease) Diabetic nephropathy GERD (gastroesophageal reflux disease) Hypothyroid Afib Diabetes Surgical History History of incision and drainage Social History household members: none Smoking Status: Former smoker alcohol intake: never Assessment & Plan Post-op Postoperative Procedures: Procedures Operation Date: 12/06/23 09:00 Actual Procedure Side Surgeon p Incision and Drainage Wound/General Right Tejas Zavaleta MD Postoperative status narrative: DC when medically stable with wound VAC Okay to resume Eliquis Quality VTE Deep Vein Thrombosis/Pulmonary Embolism Present on Admission: No
--- NOTE | 2023-12-07 10:40 | PT-IP ANOTE ---
PT order received and reports pt can be WBAT on RLE. Pt currently enjoying online yarsanism service and requests PT at another time. PT will check back and this may be next date.
--- NOTE | 2023-12-07 12:02 | P.PN_ITS ---
Subjective Subjective Interval history: 63 F multiple chronic medical conditions admitted with R leg abscess, s/p I&D with surgery 12/05 with wound vac placement. Her pain is better today, leg remains swollen. Overall feeling a bit better. Exam Vital Signs (past 8 hours): - 12/07/23 06:00 12/07/23 07:30 12/07/23 07:58 Temperature 98.4 F Pulse Rate 85 85 Respiratory Rate 18 18 Blood Pressure 120/57 L Pulse Oximetry 95 92 100 Oxygen Delivery Method Room Air BiPAP Oxygen Flow Rate 1 12/07/23 08:03 12/07/23 10:00 Temperature Pulse Rate 85 Respiratory Rate Blood Pressure 126/68 Pulse Oximetry 100 Oxygen Delivery Method Room Air Oxygen Flow Rate 0 Oxygen Delivery Method Room Air Oxygen Flow Rate 0 Narrative Exam Narrative: Gen: no acute distress Pulm: CTA b/l CV: RRR no m/r/g Abd: S NT ND Ext: b/l leg swelling, left venous stasis. R leg non pitting edema with erythema warmth slightly improved and now R wound vac with serosanguinous output. Objective Labs 12/07/23 03:40 12/07/23 03:40 Labs: Laboratory Results - last 24 hr 12/07/23 03:40 WBC 12.2 H RBC 3.07 L Hgb 7.2 L Hct 22.0 L MCV 71.5 L MCH 23.3 L MCHC 32.5 RDW 17.9 H Plt Count 394 Neut % (Auto) 79.0 H Lymph % (Auto) 11.8 L [place] % (Auto) 5.6 Eos % (Auto) 3.2 Baso % (Auto) 0.4 Neut # (Auto) 9700 H Lymph # (Auto) 1400 [place] # (Auto) 700 Eos # (Auto) 400 Baso # (Auto) 0 Sodium 135 L Potassium 3.3 L Chloride 95 L Carbon Dioxide 32 BUN 24 H Creatinine 0.89 Estimated GFR > 60 BUN/Creatinine Ratio 27.0 H Glucose 134 H Calcium 8.1 L Magnesium 1.9 Total Bilirubin 0.4 AST 20 ALT 15 Alkaline Phosphatase 96 Total Protein 6.4 Albumin 3.4 L Globulin 3.0 Albumin/Globulin Ratio 1.1 Vancomycin Trough 13.9 PFSH Medical History Anxiety Depression CHF (congestive heart failure) COPD (chronic obstructive pulmonary disease) Diabetic nephropathy GERD (gastroesophageal reflux disease) Hypothyroid Afib Diabetes Surgical History History of incision and drainage Social History household members: none Smoking Status: Former smoker alcohol intake: never Assessment & Plan Assessment & Plan narrative: 1. Right lower extremity abscess - continue ceftriaxone and vancomycin - Appreciate surgical management, s/p I&D on 12/05 with wound vac placement. No further interventions needed at this time after discussion with surgeon today. Continue wound vac as an outpatient. - follow up operative and blood cultures. OR culture without growth. Will see if OSH cultures have returned as well. 2. Type 2 diabetes with chronic insulin use - continue home lantus 10 U daily - FS ACHS - Low dose sliding scale ordered - A1c 6.9% 3. Chronic atrial fibrillation - continue home digoxin, diltiazem - hold home anticoagulation for now given hg currently at 7.2 today. resume tomorrow if stable. - continue telemetry today, slight tachycardia <110 but will keep on until more rate controlled. 4. Hypothyroidism - continue home levothyroxine and liothyronine 150 mcg / 25 mcg respectively. 5. Chronic pain - continue home methadone 10 mg BID, increased oxycodone to 10 mg prn q4 hr given acute pain, and dilaudid IV for severe pain. 6. Chronic lower extremity edema - continue home torsemide 60 mg daily 7. COPD without exacerbation - RT following, replace home medications with formulary nebulizer treatments. For now ordered for pulmicort, duo-neb, and as needed albuterol. 8. Obesity The patient is at much higher risk for medical and surgical complications because of their obesity. This increases the difficulty and complexity of medical and surgical interventions and increases the chances of poor outcomes such as morbidity and mortality. 9. Hypokalemia - replete today, will continue to follow. Code: Full, surrogate is patient's daughter DVT: Hold pending surgical evaluation, patient is on chronic anticoagulation I have utilized all available immediate resources to obtain, update, or review the patient's current medications. Dispo: patient admitted under inpatient status. Unclear if will be able to discharge home to assisted living or possible SNF, will have PT/OT evaluations and will need to determine wound care plan. Likely discharge in a couple of days once SNF is arranged. Additional history obtained via discussions with the surgeon and case management staff. These discussions contributed to the creation of the above assessment and plan. I have reviewed patient's presenting documentation, labs, and imaging personally. Time-Based Coding :: [TOTAL MINUTES] spent with patient and on the chart (including review of chart, obtaining history, exam, reviewing outside data, placing orders, documenting exam and treatment plan, and counseling patient) on [DATE]. Quality VTE Deep Vein Thrombosis/Pulmonary Embolism Present on Admission: No
--- NOTE | 2023-12-07 12:38 | CM.DPNOTE ---
DCP Cont SNF Placement According to Tanika at [facility]; patient has [facility] MCR and needs a copy of patient's [facility] insurance card. Discussed with patient who provided [facility] MCR card, copy taken and emailed to Tanika at [facility]. IH Admitting also emailed. Patient asks if her bed at [facility] will be protected. This STOCK RAISER explained that most typically a room/bed is protected while patient is in the hospital or SNF. Inquired about [facility] [employer] and patient says this is [facility] (sp?). CM team can attempt contact Friday and advocate on patient's behalf for [place] room to be held. According to Dr Zavaleta, patient would benefit from continued wound vac at SNF. Tanika at [facility] reports this case will need to be reviewed by her team tomorrow morning. Barriers to acceptance are: high needs, [employer] and that historically [facility] does not reimburse SNF level of care very well. SNF search may need to be broadened if [facility] and/or [facility] cannot accommodate. CM team following closely for coordination of discharge plan. MIKO
[2023-12-07] MEDS: cefTRIAXone 1,000 MG in SODIUM CHLORIDE 0.9% 100 ML 200 MG IV (17:02)
[2023-12-07] MEDS: ATORVASTATIN 20 MG TABLET 40 MG PO (20:29)
[2023-12-08] VITALS (12 sets, daily range): BP systolic 106–127; BP diastolic 45–68; PULSE 70–96; RESP 16–20; TEMP 36.2–37.3; O2SAT 94–96
[2023-12-08] MEDS: VANCOMYCIN 1,000 MG/200 ML PIGGYBACK 200 MG IV ×3 (04:18→20:11)
[2023-12-08] MEDS: HYDROMORPHONE 1 MG INJ IV ×4 (06:04→21:25)
[2023-12-08] MEDS: LEVOTHYROXINE 75 MCG TABLET 150 MCG PO (06:32)
[2023-12-08] MEDS: LIOTHYRONINE 5 MCG TABLET 25 MCG PO (06:32)
[2023-12-08 06:35] LABS: Add Manual Diff / Slide Review NO; Basophils Absolute Auto 0 /uL (0-100); Basophils Percent Auto 0.2 % (0-2); Eosinophils Absolute Auto 500 /uL (0-450); Eosinophils Percent Auto 4.5 % (2-4); Hematocrit 23.1 % (36-46); Hemoglobin 7.5 g/dL (12.0-16.0); Lymphocytes Absolute Auto 1500 /uL (1100-4500); Lymphocytes Percent Auto 13.8 % (25-40); Mean Corpuscular HGB Conc 32.5 % (30-36); Mean Corpuscular Hemoglobin 23.6 PG (26-34); Mean Corpuscular Volume 72.4 fL (80-100); Monocytes Absolute Auto 700 /uL (0-900); Monocytes Percent Auto 6.3 % (3-14); Neutrophils Absolute Auto 8000 /uL (1500-7000); Neutrophils Percent Auto 75.2 % (50-75); Platelet Count 434 X10^3/uL (150-400); Red Blood Cell Count 3.19 X10^6/uL (4.0-5.2); White Blood Cell Count 10.7 X10^3/uL (4.5-11.0)
[2023-12-08 06:49] LABS: Alanine Aminotransferase 14 IU/L (<35); Albumin 3.5 g/dL (3.5-5.0); Albumin Globulin Ratio 1.1 (1.0-2.8); Alkaline Phosphatase 106 U/L (38-126); Aspartate Aminotransferase 18 IU/L (14-36); BUN Creatinine Ratio 23.3 (6-22); Bilirubin Total 0.4 mg/dL (0.2-1.3); Blood Urea Nitrogen 20 mg/dL (7-17); Calcium 8.4 mg/dL (8.4-10.2); Carbon Dioxide 31 mmol/L (22-32); Chloride 98 mmol/L (98-107); Estimated Glomerular Filt Rate > 60 mL/min (>60); Globulin 3.1 g/dL (1.7-4.1); Glucose 136 mg/dL (80-110); HEMOLYSIS < 15 (0-50); Potassium 3.4 mmol/L (3.4-5.1); Sodium 135 mmol/L (137-145); Total Protein 6.6 g/dL (6.3-8.2)
--- NOTE | 2023-12-08 07:03 | PC.NURSE ---
Pt concerned about bowel medications, requesting to take 2 senna twice a day and miralax as needed. 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 no new orders received.
[2023-12-08] MEDS: OXYCODONE IR 10 MG TABLET PO ×3 (07:52→16:45)
[2023-12-08] MEDS: ACETAMINOPHEN 325 MG TABLET 650 MG PO ×2 (07:53→16:46)
[2023-12-08] MEDS: PANTOPRAZOLE DR 20 MG TABLET PO (07:54)
--- NOTE | 2023-12-08 07:58 | PM.PN.1 ---
Subjective Subjective Interval history: She was doing well, the leg is less red below the wound VAC incision. She was having some discomfort, but has well-controlled. No fevers or chills. She would like to start her apixaban again today. She wonders about her wound VAC change. Exam Vital Signs (past 8 hours): - 12/08/23 00:06 12/08/23 04:35 Temperature 97.2 F L 98.2 F Pulse Rate 91 H 94 H Respiratory Rate 18 20 Blood Pressure 127/51 L 123/61 Pulse Oximetry 95 94 Oxygen Flow Rate 0 0 Oxygen Delivery Method Room Air Oxygen Flow Rate 0 Narrative Exam Narrative: NAD, alert and oriented. Fluent speech. Lungs are clear, normal rate and effort. Heart is regular, no murmur gallop or rub. Abdomen is soft, non distended. Extremities are free of edema. The right lower extremity is edematous, red, and warm. The wound VAC is in place horizontal orientation below-knee. Objective Labs 12/08/23 06:19 12/08/23 06:19 Labs: Laboratory Results - last 24 hr 12/08/23 06:19 WBC 10.7 RBC 3.19 L Hgb 7.5 L Hct 23.1 L MCV 72.4 L MCH 23.6 L MCHC 32.5 RDW 18.0 H Plt Count 434 H Neut % (Auto) 75.2 H Lymph % (Auto) 13.8 L [place] % (Auto) 6.3 Eos % (Auto) 4.5 H Baso % (Auto) 0.2 Neut # (Auto) 8000 H Lymph # (Auto) 1500 [place] # (Auto) 700 Eos # (Auto) 500 H Baso # (Auto) 0 Sodium 135 L Potassium 3.4 Chloride 98 Carbon Dioxide 31 BUN 20 H Creatinine 0.86 Estimated GFR > 60 BUN/Creatinine Ratio 23.3 H Glucose 136 H Calcium 8.4 Magnesium 2.0 Total Bilirubin 0.4 AST 18 ALT 14 Alkaline Phosphatase 106 Total Protein 6.6 Albumin 3.5 Globulin 3.1 Albumin/Globulin Ratio 1.1 PFSH Medical History Anxiety Depression CHF (congestive heart failure) COPD (chronic obstructive pulmonary disease) Diabetic nephropathy GERD (gastroesophageal reflux disease) Hypothyroid Afib Diabetes Surgical History History of incision and drainage Social History household members: none Smoking Status: Former smoker alcohol intake: never Assessment & Plan Assessment & Plan narrative: 1. Right lower extremity abscess, present on admission and active. - continue ceftriaxone and vancomycin - Appreciate surgical management, s/p I&D on 12/05 with wound vac placement. No further interventions needed at this time after discussion with surgeon today. Continue wound vac as an outpatient. - elevate leg. -spoke with Dr. Puentes is surgery, he will change the wound VAC tomorrow (12/08). 2. Type 2 diabetes with chronic insulin use, present on admission and active. - continue home lantus 10 U daily - FS ACHS - Low dose sliding scale ordered - A1c 6.9% 3. Chronic atrial fibrillation, present on admission and active. - continue home digoxin, diltiazem - resume home anticoagulation. - continue telemetry today, slight tachycardia <110 but will keep on until more rate controlled. 4. Anemia, present on admission and active. - Monitor. 5. Hypothyroidism, present on admission and active. - continue home levothyroxine and liothyronine 150 mcg / 25 mcg respectively. 6. Chronic pain and opiate dependence, present on admission and active. - continue home methadone 10 mg BID, increased oxycodone to 10 mg prn q4 hr given acute pain, and dilaudid IV for severe pain. 7. Chronic lower extremity edema, present on admission and active. - continue home torsemide 60 mg daily 8. COPD without exacerbation, present on admission and active. - RT following, replace home medications with formulary nebulizer treatments. For now ordered for pulmicort, duo-neb, and as needed albuterol. 9. Morbid obesity, present on admission and active. The patient is at much higher risk for medical and surgical complications because of their obesity. This increases the difficulty and complexity of medical and surgical interventions and increases the chances of poor outcomes such as morbidity and mortality. 10. Hypokalemia, present on admission and improved. - replete as needed Code: Full, surrogate is patient's daughter DVT: Hold pending surgical evaluation, patient is on chronic anticoagulation I have utilized all available immediate resources to obtain, update, or review the patient's current medications. Dispo: patient admitted under inpatient status. Unclear if will be able to discharge home to assisted living or possible SNF, will have PT/OT evaluations and will need to determine wound care plan. Likely discharge in a couple of days once SNF is arranged. Time-Based Coding :: 25 min spent with patient and on the chart (including review of chart, obtaining history, exam, reviewing outside data, placing orders, documenting exam and treatment plan, and counseling patient) on12/07. Quality VTE Deep Vein Thrombosis/Pulmonary Embolism Present on Admission: No
[2023-12-08] MEDS: ALBUTEROL/IPRATROPIUM 3 ML AMPUL INH ×4 (08:25→19:20)
[2023-12-08] MEDS: BUDESONIDE 0.5 MG/2 ML NEB INH ×2 (08:25→19:20)
[2023-12-08] MEDS: INSULIN LISPRO 100 UNIT/ML 3ML VIAL SUBCUT ×2 (08:33→12:45)
[2023-12-08] MEDS: INSULIN GLARGINE 100 UNIT/ML 3ML PEN 10 UNIT SUBCUT (08:34)
[2023-12-08] MEDS: PREGABALIN 75 MG CAPSULE PO ×2 (08:40→20:10)
[2023-12-08] MEDS: guaiFENesin ER 600 MG TAB PO ×2 (08:41→20:10)
[2023-12-08] MEDS: METHADONE 10 MG TABLET PO ×2 (08:41→20:10)
[2023-12-08] MEDS: dilTIAZem CD 120 MG CAP 240 MG PO (08:41)
[2023-12-08] MEDS: TORSEMIDE 10 MG TABLET 60 MG PO (08:41)
[2023-12-08] MEDS: SERTRALINE 50 MG TABLET 200 MG PO (08:41)
[2023-12-08] MEDS: DIGOXIN 0.125 MG TABLET 0.25 MG PO (08:41)
[2023-12-08] MEDS: SODIUM CHLORIDE 0.9% FLUSH 10 ML IV ×2 (09:02→20:16)
[2023-12-08] MEDS: SENNOSIDES 8.6 MG TABLET 25.8 MG PO ×2 (10:17→20:09)
[2023-12-08] MEDS: POTASSIUM CHLORIDE 20 MEQ TAB 40 MEQ PO (10:18)
--- NOTE | 2023-12-08 13:23 | PT.IIE ---
Current Diagnoses Cutaneous abscess of right lower limb (12/05/23) Surgery Performed Operation Date: 12/06/23 09:00 Actual Procedures p Incision and Drainage Wound/General(Right) - Tejas Zavaleta MD Surgical History (Last Reviewed 12/08/23 @ 08:06 by Jewel Salmeron MD) History of incision and drainage Medical History (Last Reviewed 12/08/23 @ 08:06 by Jewel Salmeron MD) Afib Anxiety CHF (congestive heart failure) COPD (chronic obstructive pulmonary disease) Depression Diabetes Diabetic nephropathy GERD (gastroesophageal reflux disease) Hypothyroid Physical Therapy Inpatient Evaluation/Re-Eval M1 PT/OT-IP Prior Functional Status Start: 12/07/23 10:33 Freq: NEEDED Status: Active Protocol: Document 12/08/23 12:40 MB (Rec: 12/08/23 13:23 MB [id number]) Medical Review Prior Functional Status Medical History Reviewed Yes Diet/Fluid Consistency Regular Communication WNLs Mobility and Gait Transfers from hospital bed to scooter to recliner, toilet and shower bench Activities of Daily Living and IADL's Pt reports assistance with meds and laundry and that she receives Signature Social History Household Members none Living Arrangements Assisted Living Number of Floors (Floors) One Floor Number of Stairs To Enter/Railing? Accessible, no steps Home Environment Standard Height Toilet,Walk in Shower Home Equipment Power Wheelchair/Scooter,Tub Transfer Bench,Hand Held Shower,Grab Bars Near Toilet, Grab Bars In Shower Employment Status Retired M2 PT-IP Current Condition Start: 12/07/23 10:33 Freq: NEEDED Status: Active Protocol: Document 12/08/23 12:40 MB (Rec: 12/08/23 13:23 MB [id number]) Physical Therapy Current Condition Current Condition Evaluation Date 12/08/23 Treatment Diagnosis RLE cellulits, wound/wound vac M3 PT-IP Subjective Start: 12/07/23 10:33 Freq: NEEDED Status: Active Protocol: Document 12/08/23 12:40 MB (Rec: 12/08/23 13:23 MB [id number]) Subjective Physical Therapy Visit Type Type Initial Evaluation Visit Start Time 12:40 Visit Stop Time 13:05 Number of INDUSTRIAL MACHINERY MECHANIC Visits 0 Physical Therapy Visit Comments Patient Comments Pt con't to ask for PT as PT has come by several times including this date and last and pt has not been available. Therapy Pain Assessment Pain When Pain Assessed During Mobility Pain Present Pain Present Pain Reported Location Right Lower Leg Intensity 6 Scale Used Ilir (Faces) M4 PT-IP Mobility and Gait Start: 12/07/23 10:33 Freq: NEEDED Status: Active Protocol: Document 12/08/23 12:40 MB (Rec: 12/08/23 13:23 MB [id number]) PT-Bed Mobility Assessment Supine to Sit Supine to Sit Contact Guard Assistance,Total Assistance,Head of Bed Elevated,Bedrails Sit to Supine Sit to Supine Minimal Assistance,1 Person Assistance,Bedrails Scooting Scooting to Edge of Bed Contact Guard Assistance Scooting Up and Down in Bed Contact Guard Assistance PT-Transfer Assessment Sit to and From Stand Sit to and from Stand Contact Guard Assistance,1 Person Assistance,Use of Upper Extremities Equipment Transfer Assistive Device Front Wheeled Walker Orthotic/Prosthetic Devices or Brace: No Transfers Transfer Destination Bed Transfer Technique R side step Transfer Ability Level of Assist Contact Guard Assistance,1 Person Assistance,Use of Upper Extremities Comments Mobility Comments PT manages wound vac line and pt sitting in hospital bed with HOB increased and use of rails. Pt requires increased time and no assistance to move right leg to EOB to get to sitting but requires min A to lift right leg into the bed for sit to long sitting and supine: pt with heavy use of bed rails. R distal LE presents with erythema and edema, wound vac sponge does not cover small area of medial wound and machine appears to be operating well throughout treatment and after treatment. For STS, pt places right foot inside RW and left leg outside of it and is able to bring legs closer together once standing and increased body mass does not allow feet inside standard RW Gait Assessment Gait Gait Assistance Required: Minimum Assistance,1 Person Assist Distance (Feet) 1 Able to Maintain Weight Bearing Status Yes During Gait Assistive Devices Assistive Device Front Wheeled Walker Orthotic/Prosthetic Devices or Brace: No Gait Deviations General Gait Pattern Antalgic,Decreased Stride Length,Decreased Feet Clearance,Flexed Trunk,Step-to Gait,Wide Based Gait Factors Limiting Gait Function Factors Limiting Gait Function Decreased Activity Tolerance, Decreased Strength,Difficulty Following Directions,Limited Range of Motion,Pain,Poor Balance,Poor Safety Awareness Comments Gait Comments Forward, flexed posture and feet wide and stradling RW minorly, PT assists to move RW to the right and pt with decreased foot clearance/step- length and PT managing wound vac line PT-Balance Assessment Sitting Balance and Reactions Static Sitting Balance Ability Good Dynamic Sitting Balance Ability Fair Standing Balance and Reactions Static Standing Balance Ability Fair Dynamic Standing Balance Ability Fair Device Used RW M5 PT-IP Objective Assessments Start: 12/07/23 10:33 Freq: NEEDED Status: Active Protocol: Document 12/08/23 12:40 MB (Rec: 12/08/23 13:23 MB [id number]) Orientation Orientation/Cognition Level of Alertness Alert Orientation Name,Age,Birthday,Month,Date, Year,Day of Week,Place, Situation Language Function Ability No Deficits Noted Safety Awareness Decreased Safety Awareness Memory Description No Deficits Noted Gross Range of Motion Upper Extremity ROM Assessment Within Functional Limits Lower Extremity ROM Assessment Right Impaired Strength Upper Extremity Strength Assessment Within Functional Limits Lower Extremity Strength Assessment Right Impaired Knee 3-/5 functionally observed only Ankle 4/5 Other Assessments Other Other Assessments RLE changes d/t cellulitis, wound vac, edema M6 PT-IP Treatment Start: 12/07/23 10:33 Freq: NEEDED Status: Active Protocol: Document 12/08/23 12:40 MB (Rec: 12/08/23 13:23 MB [id number]) Physical Therapy Treatment Exercises Exercises Ankle Pumps,Heel Slides Education Education Provided Safety M7 PT-IP Assessment and Plan Start: 12/07/23 10:33 Freq: NEEDED Status: Active Protocol: Document 12/08/23 12:40 MB (Rec: 12/08/23 13:23 MB [id number]) PT Summary Assessment and Plan Potential Rehabilitation Potential Fair Status of Condition at Evaluation Evolving Summary Impairments Pain,ROM,Strength,Balance, Coordination,Bed Mobility, Transfers,Gait,Activity Tolerance Progress Towards Goals Slow Progress due to Pain,Slow Progress due to Medical Issues,Slow Progress due to Activity Tolerance Assessment Summary Pt is a 63 y/o female who reports that she usually transfers to her scooter at [facility]. She crushed her two RWs after accidentally running into them with scooter. She presents with right LE edema, erythema and pain and wound vac is across superoanterior distal right LE with vac sponge not fully across anteromedial portion of the wound. Dressing intact and machine appears to be working throughout treatment. Pt states she sleeps in a hospital bed without rails at baseline. She requires heavy use of rails and HOB increased for bed mobility hook lying to sit today and heavy use of rails to get back into bed. PT assists with right LE when pt gets back into bed. Recommend SNF at d/c to increase funcitonal I while she con't with wound care. Goals Bed Mobility Goal Independent Transfer Goal Independent,Front Wheeled Walker Gait Goal Independent,Front Wheel Walker Gait Distance 20 Other Goals Setting gait goal to allow progress for functional use of hospital BR and other functional mobility and pt is able to take a few steps on assessment date For bed mobility, pt may use HOB to assist but not rails for goal given home set-up. Days to Meet Goals 10 Frequency of Treatment Frequency Of Treatment Once a Day Treatment Plan Physical Therapy Treatment Plan Bed Mobility Training,Transfer Training,Gait Training, Therapeutic Exercise,Balance Retraining,Discharge Planning, Hot or Cold Pack,Neuromuscular Re-ed,Coordination Retraining ,Manual Therapy Precautions Other Precautions Wound vac Weight Bearing Status Weight Bearing Status Weight Bear as Tolerated Allowed Weight Bearing Amount (enter % Dr. Sridhar hirsch pt for WBAT or #) (%) last date Recommendations To Nursing Amount of Assist Needed 2 Person Assist Discharge Recommendations PT Discharge Recommendations SNF Rehab Transportation Needs at Discharge Stretcher/Ambulance
[2023-12-08] MEDS: CARBOXYMETHYLCELLULOSE DROPS 1 DROPS EYE-BOTH (13:25)
[2023-12-08] MEDS: APIXABAN 5 MG TABLET PO ×2 (14:40→20:10)
--- NOTE | 2023-12-08 14:41 | CM.DPNOTE ---
WILIAM Cook Spoke with Hina at [facility]; their medical team is still reviewing this referral. Hina requests updates about the need for ongoing IV abx once all cultures results have been received. May need to consider back up SNF referrals if [facility] cannot accommodate; need to discuss with patient. Patient has [facility] MCR, need in network facility or one that would consider a one time contract. MIKO
[2023-12-08] MEDS: cefTRIAXone 1,000 MG in SODIUM CHLORIDE 0.9% 100 ML 200 MG IV (16:47)
[2023-12-08] MEDS: ALBUTEROL 2.5 MG/3 ML NEB (ADULT) INH (17:10)
--- NOTE | 2023-12-08 18:05 | P.PN_ITS ---
Subjective Subjective Date Patient Seen: 12/08/23 Time Patient Seen: 18:05 Interval history: Feeling slightly better today. Exam Vital Signs (past 8 hours): - 12/08/23 11:49 12/08/23 14:00 12/08/23 15:12 Temperature 98.2 F Pulse Rate 78 78 Respiratory Rate 20 18 Blood Pressure 109/68 Pulse Oximetry 94 94 94 Oxygen Delivery Method Room Air Room Air Oxygen Flow Rate 0 0 Fraction of Inspired Oxygen 21 12/08/23 16:00 Temperature 98.5 F Pulse Rate 89 Respiratory Rate 20 Blood Pressure 119/45 L Pulse Oximetry 95 Oxygen Delivery Method Oxygen Flow Rate 0 Fraction of Inspired Oxygen Fraction of Inspired Oxygen 21 SaO2/FiO2 Ratio 447 Oxygen Delivery Method Room Air Oxygen Flow Rate 0 Narrative Exam Narrative: Erythema and edema inferior to the wound vac Objective Labs 12/08/23 06:19 12/08/23 06:19 Labs: Laboratory Results - last 24 hr 12/08/23 06:19 WBC 10.7 RBC 3.19 L Hgb 7.5 L Hct 23.1 L MCV 72.4 L MCH 23.6 L MCHC 32.5 RDW 18.0 H Plt Count 434 H Neut % (Auto) 75.2 H Lymph % (Auto) 13.8 L [place] % (Auto) 6.3 Eos % (Auto) 4.5 H Baso % (Auto) 0.2 Neut # (Auto) 8000 H Lymph # (Auto) 1500 [place] # (Auto) 700 Eos # (Auto) 500 H Baso # (Auto) 0 Sodium 135 L Potassium 3.4 Chloride 98 Carbon Dioxide 31 BUN 20 H Creatinine 0.86 Estimated GFR > 60 BUN/Creatinine Ratio 23.3 H Glucose 136 H Calcium 8.4 Magnesium 2.0 Total Bilirubin 0.4 AST 18 ALT 14 Alkaline Phosphatase 106 Total Protein 6.6 Albumin 3.5 Globulin 3.1 Albumin/Globulin Ratio 1.1 [facility] Medical History Anxiety Depression CHF (congestive heart failure) COPD (chronic obstructive pulmonary disease) Diabetic nephropathy GERD (gastroesophageal reflux disease) Hypothyroid Afib Diabetes Surgical History History of incision and drainage Social History household members: none Smoking Status: Former smoker alcohol intake: never Assessment & Plan Assessment and plan (1) Leg wound, right: Qualifiers: Encounter type: initial encounter Qualified Code(s): S81.801A - Unspecified open wound, right lower leg, initial encounter Status: Acute Plan Plan for wound vac change in the OR tomorrow. Then transition to outpatient wound care. Time-Based Coding :: [TOTAL MINUTES] spent with patient and on the chart (including review of chart, obtaining history, exam, reviewing outside data, placing orders, documenting exam and treatment plan, and counseling patient) on [DATE]. Quality VTE Deep Vein Thrombosis/Pulmonary Embolism Present on Admission: No
[2023-12-08] MEDS: ATORVASTATIN 20 MG TABLET 40 MG PO (20:10)
[2023-12-09] VITALS (20 sets, daily range): BP systolic 110–133; BP diastolic 53–75; PULSE 75–102; RESP 14–22; TEMP 35.8–37.4; O2SAT 92–98; BMI 52.6
[2023-12-09] MEDS: HYDROMORPHONE 1 MG INJ IV ×4 (00:24→21:47)
--- NOTE | 2023-12-09 02:47 | PC.NURSE ---
spoke to Dr. Puentes last night 12/08/23 aroun 193 to verify that patient can still get her Eliquis since she will be have her wound vac dressing change in the OR today. Per Dr. Puentes pt can have her night dose of eliquis.
[2023-12-09] MEDS: VANCOMYCIN 1,000 MG/200 ML PIGGYBACK 200 MG IV (04:25)
[2023-12-09] MEDS: LIOTHYRONINE 5 MCG TABLET 25 MCG PO (06:03)
[2023-12-09] MEDS: OXYCODONE IR 10 MG TABLET PO ×4 (06:03→20:22)
[2023-12-09] MEDS: LEVOTHYROXINE 75 MCG TABLET 150 MCG PO (06:03)
[2023-12-09] MEDS: PANTOPRAZOLE DR 20 MG TABLET PO (06:40)
[2023-12-09 07:07] LABS: BUN Creatinine Ratio 24.1 (6-22); Blood Urea Nitrogen 19 mg/dL (7-17); Calcium 8.7 mg/dL (8.4-10.2); Carbon Dioxide 32 mmol/L (22-32); Chloride 100 mmol/L (98-107); Estimated Glomerular Filt Rate > 60 mL/min (>60); Glucose 136 mg/dL (80-110); HEMOLYSIS < 15 (0-50); Potassium 3.5 mmol/L (3.4-5.1); Sodium 136 mmol/L (137-145)
--- NOTE | 2023-12-09 07:51 | PM.PN.1 ---
Subjective Subjective Interval history: She slept well last night, little less leg pain today. No nausea, no chest pain or shortness a breath. Exam Vital Signs (past 8 hours): - 12/09/23 05:00 Temperature 97.6 F Pulse Rate 75 Respiratory Rate 18 Blood Pressure 121/71 Pulse Oximetry 94 Oxygen Flow Rate 0 Fraction of Inspired Oxygen 21 SaO2/FiO2 Ratio 447 Oxygen Delivery Method Room Air Oxygen Flow Rate 0 Narrative Exam Narrative: NAD, alert and oriented. Fluent speech. Lungs are clear, normal rate and effort. Heart is regular, no murmur gallop or rub. Abdomen is soft, non distended. Extremities are free of edema. Objective Labs 12/08/23 06:19 12/09/23 06:47 Labs: Laboratory Results - last 24 hr 12/09/23 06:47 Sodium 136 L Potassium 3.5 Chloride 100 Carbon Dioxide 32 BUN 19 H Creatinine 0.79 Estimated GFR > 60 BUN/Creatinine Ratio 24.1 H Glucose 136 H Calcium 8.7 PFSH Medical History Anxiety Depression CHF (congestive heart failure) COPD (chronic obstructive pulmonary disease) Diabetic nephropathy GERD (gastroesophageal reflux disease) Hypothyroid Afib Diabetes Surgical History History of incision and drainage Social History household members: none Smoking Status: Former smoker alcohol intake: never Assessment & Plan Assessment & Plan narrative: 1. Right lower extremity abscess, present on admission and active. - continue ceftriaxone and vancomycin - Appreciate surgical management, s/p I&D on 12/05 with wound vac placement. No further interventions needed at this time after discussion with surgeon today. Continue wound vac as an outpatient. - elevate leg. -spoke with Dr. Puentes is surgery, he will change the wound VAC 2 day (12/08). 2. Type 2 diabetes with chronic insulin use, present on admission and active. - continue home lantus 10 U daily - FS ACHS - Low dose sliding scale ordered - A1c 6.9% 3. Chronic atrial fibrillation, present on admission and active. - continue home digoxin, diltiazem - resume home anticoagulation. - continue telemetry today, slight tachycardia <110 but will keep on until more rate controlled. 4. Anemia, present on admission and active. - Monitor. 5. Hypothyroidism, present on admission and active. - continue home levothyroxine and liothyronine 150 mcg / 25 mcg respectively. 6. Chronic pain and opiate dependence, present on admission and active. - continue home methadone 10 mg BID, increased oxycodone to 10 mg prn q4 hr given acute pain, and dilaudid IV for severe pain. 7. Chronic lower extremity edema, present on admission and active. - continue home torsemide 60 mg daily 8. COPD without exacerbation, present on admission and active. - RT following, replace home medications with formulary nebulizer treatments. For now ordered for pulmicort, duo-neb, and as needed albuterol. 9. Morbid obesity, present on admission and active. The patient is at much higher risk for medical and surgical complications because of their obesity. This increases the difficulty and complexity of medical and surgical interventions and increases the chances of poor outcomes such as morbidity and mortality. 10. Hypokalemia, present on admission and improved. - replete as needed PLAN: -continue IV antibiotics. -wound VAC change today. -IV fluids at D5 1/2 NS while NPO. Code: Full, surrogate is patient's daughter DVT: resumed Apixiban 12/07. DELMY: 12/10, custodial facility. Time-Based Coding :: 25 min spent with patient and on the chart (including review of chart, obtaining history, exam, reviewing outside data, placing orders, documenting exam and treatment plan, and counseling patient) on 12/08. Quality VTE Deep Vein Thrombosis/Pulmonary Embolism Present on Admission: No
[2023-12-09] MEDS: BUDESONIDE 0.5 MG/2 ML NEB INH ×2 (08:57→19:25)
[2023-12-09] MEDS: ALBUTEROL/IPRATROPIUM 3 ML AMPUL INH ×5 (08:57→22:43)
[2023-12-09] MEDS: SODIUM CHLORIDE 0.9% FLUSH 10 ML IV ×2 (09:00→20:33)
[2023-12-09] MEDS: INSULIN GLARGINE 100 UNIT/ML 3ML PEN 10 UNIT SUBCUT (09:48)
[2023-12-09] MEDS: DIGOXIN 0.125 MG TABLET 0.25 MG PO (10:57)
[2023-12-09] MEDS: SENNOSIDES 8.6 MG TABLET 25.8 MG PO ×2 (10:58→20:22)
[2023-12-09] MEDS: TORSEMIDE 10 MG TABLET 60 MG PO (10:58)
[2023-12-09] MEDS: PREGABALIN 75 MG CAPSULE PO ×2 (10:59→20:23)
[2023-12-09] MEDS: dilTIAZem CD 120 MG CAP 240 MG PO (10:59)
[2023-12-09] MEDS: guaiFENesin ER 600 MG TAB PO ×2 (10:59→20:22)
[2023-12-09] MEDS: METHADONE 10 MG TABLET PO ×2 (10:59→20:22)
[2023-12-09] MEDS: SERTRALINE 50 MG TABLET 200 MG PO (11:00)
[2023-12-09] MEDS: APIXABAN 5 MG TABLET PO ×2 (11:04→20:22)
[2023-12-09] MEDS: DEXTROSE 5%-0.45% NS 1,000 ML 100 ML IV (11:12)
--- NOTE | 2023-12-09 12:23 | PC.NURSE ---
1210- BIOMECH[employer]INE[employer]'s transporting patient via bed to pre-op area for wound vac change. Lab heel caser at bedside for vanco trough, taken from midline, as well as BG 156.
--- NOTE | 2023-12-09 12:25 | PT-IP ANOTE ---
Pt is not appropriate for PT at this time, she is receiving a wound vac change. PT will check on pt later this afternoon.
[2023-12-09] MEDS: LACTATED RINGERS 1,000 ML 42 ML IV (12:28)
[2023-12-09] MEDS: VANCOMYCIN TROUGH 1 REQUEST MISC (12:30)
[2023-12-09 12:46] LABS: Vancomycin Trough 16.9 ug/mL (10-20)
--- NOTE | 2023-12-09 13:02 | PM.PREOP ---
Pre-operative Note COVID-19 COVID-19 status: Not tested Interval Note History & Physical reviewed/Exam performed by Physician: Yes Changes to H&P: No ASA Class (for procedural sedation): III
--- NOTE | 2023-12-09 13:09 | SUR.OPER ---
Supine on padded OR bed, head on pillow, arms secured on padded arm boards at <90 degrees abduction, legs uncrossed, safety belt at thigh, tape over blanket over lower legs.
[2023-12-09] MEDS: BUPIVACAINE 0.5% W/ EPI (PF) 30 ML VIAL INJ (13:50)
--- NOTE | 2023-12-09 14:14 | P.OP_ITS ---
Operative Date/Time/Diagnoses Date of procedure: 12/09/23 Time of procedure: 14:14 Pre-op diagnosis: Right leg open wound Post-op diagnosis: same Procedure & Clinicians Procedure: Debridement of right leg open wound Wound VAC change Same procedure as scheduled: Yes Surgeon: Robert Puentes Pest Controller: Harshal Landeros Anesthesia Type: General Operative Notes Procedure in detail: The patient was brought to the operating room and sedation was administered. The existing wound VAC was removed. The right leg was prepped and draped in the usual manner and a time-out was performed. The wound was irrigated with sterile saline. There appeared to be some undermining in the lateral, inferior aspect of the wound. A proximally 5 square inches of skin was removed to unroof the undermining. A new wound VAC sponge was applied to the medial aspect of the wound and a separate sponge was applied to the lateral aspect of the wound and the overlapped. The wound VAC dressing was applied and suctioned was applied with a good seal. EBL: 10 mL Harshal POOL provided assistance with exposure, retraction and closure of incisions. Post-operative Condition: stable Disposition: PACU
--- NOTE | 2023-12-09 14:46 | PC.NURSE ---
1445 patient returned from PACU, woundvac dressing change. She is A&Ox4, VSS afebrile on RA. Pharmacy notified of trough done (16.9) and being taken to preop area at 1210, to change vancomycin dose/timing.
--- NOTE | 2023-12-09 15:16 | CM.DPC ---
DCP Cont. Reviewed EMR and team rounds for status updates. [facility] is continuing to review and will likely accept, this is pending the plan for the IV ABO's and woundcare instructions from Dr. Puentes. This CAR HIKER will f/u again with [facility] tomorrow and confirm plan. They cannot take her until .
--- NOTE | 2023-12-09 15:21 | PT-IP ANOTE ---
checked on pt and pt refused PT. educated pt on importance of mobility. pt understood but continues to refuse. Initially stating the she needs a bariatric commode to use and when bariatric commode was positioned, pt refused and stated not right now, maybe later. stated that she is really motivated but does not want to get up right now.
[2023-12-09] MEDS: VANCOMYCIN 1,250 MG/250 ML PIGGYBACK 250 MG IV (15:28)
[2023-12-09] MEDS: POTASSIUM CHLORIDE 20 MEQ TAB 40 MEQ PO (15:29)
[2023-12-09] MEDS: ACETAMINOPHEN 325 MG TABLET 650 MG PO (17:16)
[2023-12-09] MEDS: cefTRIAXone 1,000 MG in SODIUM CHLORIDE 0.9% 100 ML 200 MG IV (17:17)
[2023-12-09] MEDS: INSULIN LISPRO 100 UNIT/ML 3ML VIAL SUBCUT (17:22)
[2023-12-09] MEDS: CARBOXYMETHYLCELLULOSE DROPS 1 DROPS EYE-BOTH (17:30)
[2023-12-09] MEDS: ATORVASTATIN 20 MG TABLET 40 MG PO (20:24)
[2023-12-10] VITALS (13 sets, daily range): BP systolic 92–145; BP diastolic 60–75; PULSE 74–93; RESP 16–20; TEMP 36.2–37.8; O2SAT 92–100
[2023-12-10] MEDS: OXYCODONE IR 10 MG TABLET PO ×5 (01:13→21:21)
[2023-12-10] MEDS: VANCOMYCIN 1,250 MG/250 ML PIGGYBACK 250 MG IV ×2 (03:01→15:19)
[2023-12-10] MEDS: LIOTHYRONINE 5 MCG TABLET 25 MCG PO (06:25)
[2023-12-10] MEDS: PANTOPRAZOLE DR 20 MG TABLET PO (06:25)
[2023-12-10] MEDS: LEVOTHYROXINE 75 MCG TABLET 150 MCG PO (06:25)
[2023-12-10 06:52] LABS: Add Manual Diff / Slide Review NO; Basophils Absolute Auto 100 /uL (0-100); Basophils Percent Auto 0.6 % (0-2); Eosinophils Absolute Auto 400 /uL (0-450); Eosinophils Percent Auto 3.8 % (2-4); Hematocrit 22.6 % (36-46); Hemoglobin 7.3 g/dL (12.0-16.0); Lymphocytes Absolute Auto 1700 /uL (1100-4500); Lymphocytes Percent Auto 16.2 % (25-40); Mean Corpuscular HGB Conc 32.1 % (30-36); Mean Corpuscular Hemoglobin 23.1 PG (26-34); Mean Corpuscular Volume 71.9 fL (80-100); Monocytes Absolute Auto 600 /uL (0-900); Monocytes Percent Auto 5.4 % (3-14); Neutrophils Absolute Auto 7900 /uL (1500-7000); Platelet Count 471 X10^3/uL (150-400); Red Blood Cell Count 3.14 X10^6/uL (4.0-5.2); Red Cell Distribution Width 18.1 % (11.6-14.8); White Blood Cell Count 10.6 X10^3/uL (4.5-11.0)
[2023-12-10 07:07] LABS: BUN Creatinine Ratio 22.1 (6-22); Blood Urea Nitrogen 15 mg/dL (7-17); Calcium 8.4 mg/dL (8.4-10.2); Carbon Dioxide 33 mmol/L (22-32); Chloride 101 mmol/L (98-107); Estimated Glomerular Filt Rate > 60 mL/min (>60); Glucose 126 mg/dL (80-110); HEMOLYSIS < 15 (0-50); Potassium 3.8 mmol/L (3.4-5.1); Sodium 139 mmol/L (137-145)
[2023-12-10] MEDS: INSULIN GLARGINE 100 UNIT/ML 3ML PEN 10 UNIT SUBCUT (08:07)
[2023-12-10] MEDS: guaiFENesin ER 600 MG TAB PO ×2 (08:16→21:20)
[2023-12-10] MEDS: APIXABAN 5 MG TABLET PO ×2 (08:17→21:20)
[2023-12-10] MEDS: METHADONE 10 MG TABLET PO ×2 (08:17→21:20)
[2023-12-10] MEDS: SENNOSIDES 8.6 MG TABLET 25.8 MG PO ×2 (08:17→21:20)
[2023-12-10] MEDS: DIGOXIN 0.125 MG TABLET 0.25 MG PO (08:18)
[2023-12-10] MEDS: dilTIAZem CD 120 MG CAP 240 MG PO (08:18)
[2023-12-10] MEDS: PREGABALIN 75 MG CAPSULE PO ×2 (08:18→21:20)
[2023-12-10] MEDS: SERTRALINE 50 MG TABLET 200 MG PO (08:18)
[2023-12-10] MEDS: SODIUM CHLORIDE 0.9% FLUSH 10 ML IV (08:19)
[2023-12-10] MEDS: TORSEMIDE 10 MG TABLET 60 MG PO (08:19)
[2023-12-10] MEDS: HYDROMORPHONE 1 MG INJ IV (08:20)
--- NOTE | 2023-12-10 08:20 | P.PN_ITS ---
Subjective Subjective Interval history: She was doing better today. Her wound VAC change when while yesterday. There was a slight debridement. I spoke with Dr. Puentes of surgery, he feels that she will need no further OR time and can have her management done outside of the hospital. She was accepted at shelter facility for tomorrow in is happy to do so. Exam Vital Signs (past 8 hours): - 12/10/23 02:00 12/10/23 04:00 12/10/23 06:00 Temperature 97.2 F L Pulse Rate 83 Respiratory Rate 19 Blood Pressure 145/63 H Pulse Oximetry 97 97 96 Oxygen Delivery Method Room Air Room Air Oxygen Flow Rate 0 Fraction of Inspired Oxygen 21 SaO2/FiO2 Ratio 438 Oxygen Delivery Method Room Air Oxygen Flow Rate 0 Narrative Exam Narrative: NAD, alert and oriented. Fluent speech. Lungs are clear, normal rate and effort. Heart is regular, no murmur gallop or rub. Abdomen is soft, non distended. Extremities: right leg still swollen but less red. The wound looks good in the wound VAC is in place. Objective Labs 12/10/23 06:42 12/10/23 06:42 Labs: Laboratory Results - last 24 hr 12/09/23 12/10/23 12:00 06:42 WBC 10.6 RBC 3.14 L Hgb 7.3 L Hct 22.6 L MCV 71.9 L MCH 23.1 L MCHC 32.1 RDW 18.1 H Plt Count 471 H Neut % (Auto) 74.0 Lymph % (Auto) 16.2 L [place] % (Auto) 5.4 Eos % (Auto) 3.8 Baso % (Auto) 0.6 Neut # (Auto) 7900 H Lymph # (Auto) 1700 [place] # (Auto) 600 Eos # (Auto) 400 Baso # (Auto) 100 Sodium 139 Potassium 3.8 Chloride 101 Carbon Dioxide 33 H BUN 15 Creatinine 0.68 Estimated GFR > 60 BUN/Creatinine Ratio 22.1 H Glucose 126 H Calcium 8.4 Vancomycin Trough 16.9 PFSH Medical History Anxiety Depression CHF (congestive heart failure) COPD (chronic obstructive pulmonary disease) Diabetic nephropathy GERD (gastroesophageal reflux disease) Hypothyroid Afib Diabetes Surgical History History of incision and drainage Social History household members: none Smoking Status: Former smoker alcohol intake: never Assessment & Plan Assessment & Plan narrative: 1. Right lower extremity abscess, present on admission and improving. - continue ceftriaxone and vancomycin - change wound VAC Q 3 days. Sniff tomorrow. 2. Type 2 diabetes with chronic insulin use, present on admission and active. - continue home lantus 10 U daily 3. Chronic atrial fibrillation, present on admission and active. - continue home digoxin, diltiazem - resume home anticoagulation. 4. Anemia, present on admission and active. - Monitor. Iron studies. 5. Hypothyroidism, present on admission and active. - continue home levothyroxine and liothyronine 150 mcg / 25 mcg respectively. 6. Chronic pain and opiate dependence, present on admission and active. - continue home methadone 10 mg BID, increased oxycodone to 10 mg prn q4 hr given acute pain, and dilaudid IV for severe pain. 7. Chronic lower extremity edema, present on admission and active. - continue home torsemide 60 mg daily 8. COPD without exacerbation, present on admission and active. - RT following, replace home medications with formulary nebulizer treatments. For now ordered for pulmicort, duo-neb, and as needed albuterol. 9. Morbid obesity, present on admission and active. The patient is at much higher risk for medical and surgical complications because of their obesity. This increases the difficulty and complexity of medical and surgical interventions and increases the chances of poor outcomes such as morbidity and mortality. 10. Hypokalemia, present on admission and improved. - replete as needed PLAN: -continue IV antibiotics. -[facility] tomorrow, wound VAC changes every 3 days or so. -check iron studies for anemia Code: Full, surrogate is patient's daughter DVT: resumed Apixiban 12/07. Time-Based Coding :: 20 min spent with patient and on the chart (including review of chart, obtaining history, exam, reviewing outside data, placing orders, documenting exam and treatment plan, and counseling patient) on 12/09. Quality VTE Deep Vein Thrombosis/Pulmonary Embolism Present on Admission: No
[2023-12-10] MEDS: ALBUTEROL/IPRATROPIUM 3 ML AMPUL INH ×4 (09:16→19:06)
[2023-12-10] MEDS: BUDESONIDE 0.5 MG/2 ML NEB INH ×2 (09:16→19:06)
[2023-12-10 09:45] LABS: HEMOLYSIS < 15 (0-50); Iron 37 ug/dL (37-170)
[2023-12-10 09:56] LABS: Percent Iron Saturation 14 % (15-50); Total Iron Binding Capacity 263 ug/dL (265-497); Transferrin 197 mg/dL (206-381)
--- NOTE | 2023-12-10 10:47 | PT.IPTN ---
Current Diagnoses Cutaneous abscess of right lower limb (12/05/23) Unspecified open wound, right lower leg, initial encounter (12/05/23) Surgery Performed Operation Date: 12/06/23 09:00 Actual Procedures p Incision and Drainage Wound/General(Right) - Tejas Zavaleta MD Operation Date: 12/09/23 13:00 Actual Procedures p Incision and Drainage Wound/General - Robert Puentes MD Physical Therapy Treatment Note M2 PT-IP Current Condition Start: 12/07/23 10:33 Freq: NEEDED Status: Active Protocol: Document 12/08/23 12:40 MB (Rec: 12/08/23 13:23 MB [id number]) Physical Therapy Current Condition Current Condition Evaluation Date 12/08/23 Treatment Diagnosis RLE cellulits, wound/wound vac M3 PT-IP Subjective Start: 12/07/23 10:33 Freq: NEEDED Status: Active Protocol: Document 12/10/23 11:14 TS (Rec: 12/10/23 11:23 TS [id number]) Subjective Physical Therapy Visit Type Type Treatment Note Visit Start Time 10:47 Visit Stop Time 11:13 Number of ICEBOX WORKER Visits 1 Physical Therapy Visit Comments Patient Comments Pt found resting in bed, is agreeable to PT. Therapy Pain Assessment Pain When Pain Assessed During Mobility Pain Present Pain Present Pain Reported M4 PT-IP Mobility and Gait Start: 12/07/23 10:33 Freq: NEEDED Status: Active Protocol: Document 12/10/23 11:14 TS (Rec: 12/10/23 11:23 TS [id number]) PT-Bed Mobility Assessment Supine to Sit Supine to Sit Minimal Assistance,1 Person Assistance,Head of Bed Elevated,Bedrails Scooting Scooting to Edge of Bed Contact Guard Assistance PT-Transfer Assessment Sit to and From Stand Sit to and from Stand Minimal Assistance,1 Person Assistance,Use of Upper Extremities Equipment Transfer Assistive Device Gait Belt,Front Wheeled Walker Orthotic/Prosthetic Devices or Brace: No Transfers Transfer Destination Bedside Commode Transfer Technique Stand Step Pivot Transfer Ability Level of Assist Minimal Assistance,1 Person Assistance,Use of Upper Extremities Comments Mobility Comments Supine to sit Ever for uprighting trunk, ICEBOX WORKER manages wound vac. STS with FWW Ever, pt leans heavily on FWW with BUE support. Stand step pivot to commode Ever with FWW, pt requries assist lining up to commode. Pt was left on commode with nursing. Gait Assessment Gait Gait Assistance Required: Minimum Assistance,1 Person Assist Distance (Feet) 2 Able to Maintain Weight Bearing Status Yes During Gait Assistive Devices Assistive Device Front Wheeled Walker Orthotic/Prosthetic Devices or Brace: No Gait Deviations General Gait Pattern Antalgic,Decreased Stride Length,Decreased Feet Clearance,Flexed Trunk,Step-to Gait,Wide Based Gait Factors Limiting Gait Function Factors Limiting Gait Function Decreased Activity Tolerance, Decreased Strength,Difficulty Following Directions,Limited Range of Motion,Pain,Poor Balance,Poor Safety Awareness Comments Gait Comments See mobility comments PT-Balance Assessment Sitting Balance and Reactions Static Sitting Balance Ability Good Dynamic Sitting Balance Ability Fair Standing Balance and Reactions Static Standing Balance Ability Fair Dynamic Standing Balance Ability Fair Device Used FWW M5 PT-IP Objective Assessments Start: 12/07/23 10:33 Freq: NEEDED Status: Active Protocol: Document 12/08/23 12:40 MB (Rec: 12/08/23 13:23 MB [id number]) Orientation Orientation/Cognition Level of Alertness Alert Orientation Name,Age,Birthday,Month,Date, Year,Day of Week,Place, Situation Language Function Ability No Deficits Noted Safety Awareness Decreased Safety Awareness Memory Description No Deficits Noted Gross Range of Motion Upper Extremity ROM Assessment Within Functional Limits Lower Extremity ROM Assessment Right Impaired Strength Upper Extremity Strength Assessment Within Functional Limits Lower Extremity Strength Assessment Right Impaired Knee 3-/5 functionally observed only Ankle 4/5 Other Assessments Other Other Assessments RLE changes d/t cellulitis, wound vac, edema M6 PT-IP Treatment Start: 12/07/23 10:33 Freq: NEEDED Status: Active Protocol: Document 12/10/23 11:14 TS (Rec: 12/10/23 11:23 TS [id number]) Physical Therapy Treatment Exercises Exercises Ankle Pumps,Heel Slides Education Education Provided Safety M7 PT-IP Assessment and Plan Start: 12/07/23 10:33 Freq: NEEDED Status: Active Protocol: Document 12/10/23 11:14 TS (Rec: 12/10/23 11:23 TS [id number]) PT Summary Assessment and Plan Potential Rehabilitation Potential Fair Summary Impairments Pain,ROM,Strength,Balance, Coordination,Bed Mobility, Transfers,Gait,Activity Tolerance Progress Towards Goals Slow Progress due to Pain,Slow Progress due to Medical Issues,Slow Progress due to Activity Tolerance Assessment Summary Ayaka continues to make slow progress with her mobility. She requires use of handrails and HOB elevated for bed mobility. She leans heavily on FWW for STS and for transfer to commode. She is slow with her movements and requries cues for lining up to commode. PT continues to recommend SNF . Goals Bed Mobility Goal Independent Transfer Goal Independent,Front Wheeled Walker Gait Goal Independent,Front Wheel Walker Gait Distance 20 Other Goals Setting gait goal to allow progress for functional use of hospital BR and other functional mobility and pt is able to take a few steps on assessment date For bed mobility, pt may use HOB to assist but not rails for goal given home set-up. Days to Meet Goals 10 Frequency of Treatment Frequency Of Treatment Once a Day Treatment Plan Physical Therapy Treatment Plan Bed Mobility Training,Transfer Training,Gait Training, Therapeutic Exercise,Balance Retraining,Discharge Planning, Hot or Cold Pack,Neuromuscular Re-ed,Coordination Retraining ,Manual Therapy Precautions Other Precautions Wound vac Weight Bearing Status Weight Bearing Status Weight Bear as Tolerated Allowed Weight Bearing Amount (enter % Dr. Sridhar hirsch pt for WBAT or #) (%) last date Recommendations To Nursing Amount of Assist Needed 2 Person Assist Discharge Recommendations PT Discharge Recommendations SNF Rehab Transportation Needs at Discharge Stretcher/Ambulance
[2023-12-10] MEDS: INSULIN LISPRO 100 UNIT/ML 3ML VIAL SUBCUT (12:03)
--- NOTE | 2023-12-10 12:53 | DIET.CONS ---
Dietary Consultation Note Admission Date: 12/05/2023 17:02 Assessment: 63 y F admitted for cellulitis/abscess, had I&D and wound vac placed. Nutrition screened for LOS. Pt with 75-100% recorded PO intakes, DFM reviewed for meal composition/adequate protein intake. No wt history. Hx of DM, A1c on 12/05 was 6.9%. BG <180 in last 24 h. Discussed trial of Augusto. Ht: 177.8 cm Wt: 166.468 kg BMI: 52.6 Last BM: 12/10/23 (12/10/23 12:00) MNA: 14 Napoleon Score: 19 Diet: 12/09/23 Dinner Carbohydrate Consistent Diet Diet Modifications: Carbohydrate level: Medium (3 CHO) Bedtime snack: Yes Reflex DM orders: No Food Texture: Level 7 - Regular Liquid Consistency: Level 0 - Thin Nutrition Percent Meal Consumed 100% 12/10/23 12:00 Percent Meal Consumed 100% 12/10/23 08:00 Percent Meal Consumed 100% 12/09/23 18:31 Percent Meal Consumed 100% 12/08/23 18:00 Labs: RBC 3.14 X10^6/uL (4.0-5.2) L 12/10/23 06:42 Hgb 7.3 g/dL (12.0-16.0) L 12/10/23 06:42 Hct 22.6 % (36-46) L 12/10/23 06:42 Creatinine 0.68 mg/dL (0.52-1.04) 12/10/23 06:42 Hemoglobin A1c 6.9 % (4.0-6.0) H 12/06/23 07:07 Lactate 2.0 mmol/L (0.7-2.1) 12/05/23 16:03 Iron 37 ug/dL (37-170) 12/10/23 08:35 % Saturation 14 % (15-50) L 12/10/23 08:35 Nutrition Diagnosis: Increased nutrient needs (protein) r/t healing aeb wound Interventions: 1. Augusto BID EER: 100-110 g protein (1.25 g/kg per healing) Monitoring/Evaluations: Augusto tolerance Electronically Signed by: Yolanda Ayala 12/10/23 12:53 Clinical Dietitian [address] [address]
[2023-12-10 15:02] LABS: Vancomycin Trough 16.3 ug/mL (10-20)
[2023-12-10] MEDS: cefTRIAXone 1,000 MG in SODIUM CHLORIDE 0.9% 100 ML 200 MG IV (17:02)
[2023-12-10] MEDS: ATORVASTATIN 20 MG TABLET 40 MG PO (21:20)
[2023-12-11] VITALS (15 sets, daily range): BP systolic 104–165; BP diastolic 47–90; PULSE 68–88; RESP 14–18; TEMP 36.1–37.4; O2SAT 90–99; BMI 52.6
[2023-12-11] MEDS: OXYCODONE IR 10 MG TABLET PO ×4 (00:31→20:18)
[2023-12-11] MEDS: VANCOMYCIN 2,000 MG/400 ML PIGGYBACK 200 MG IV ×3 (00:31→23:44)
[2023-12-11] MEDS: LIOTHYRONINE 5 MCG TABLET 25 MCG PO (06:32)
[2023-12-11] MEDS: LEVOTHYROXINE 75 MCG TABLET 150 MCG PO (06:32)
[2023-12-11] MEDS: PANTOPRAZOLE DR 20 MG TABLET PO (06:32)
[2023-12-11 06:37] LABS: Add Manual Diff / Slide Review NO; Basophils Absolute Auto 0 /uL (0-100); Basophils Percent Auto 0.3 % (0-2); Eosinophils Absolute Auto 300 /uL (0-450); Eosinophils Percent Auto 3.3 % (2-4); Lymphocytes Absolute Auto 1800 /uL (1100-4500); Lymphocytes Percent Auto 18.8 % (25-40); Mean Corpuscular HGB Conc 32.6 % (30-36); Mean Corpuscular Hemoglobin 23.3 PG (26-34); Mean Corpuscular Volume 71.5 fL (80-100); Monocytes Absolute Auto 600 /uL (0-900); Monocytes Percent Auto 6.3 % (3-14); Neutrophils Absolute Auto 6900 /uL (1500-7000); Neutrophils Percent Auto 71.3 % (50-75); Platelet Count 431 X10^3/uL (150-400); Red Blood Cell Count 2.92 X10^6/uL (4.0-5.2); Red Cell Distribution Width 18.5 % (11.6-14.8); White Blood Cell Count 9.7 X10^3/uL (4.5-11.0)
[2023-12-11 06:41] LABS: BUN Creatinine Ratio 21.3 (6-22); Blood Urea Nitrogen 17 mg/dL (7-17); Calcium 8.5 mg/dL (8.4-10.2); Carbon Dioxide 34 mmol/L (22-32); Chloride 102 mmol/L (98-107); Estimated Glomerular Filt Rate > 60 mL/min (>60); Glucose 113 mg/dL (80-110); HEMOLYSIS < 15 (0-50); Potassium 3.5 mmol/L (3.4-5.1); Sodium 137 mmol/L (137-145)
[2023-12-11 06:48] LABS: Hematocrit 20.9 % (36-46); Hemoglobin 6.8 g/dL (12.0-16.0)
[2023-12-11] MEDS: ALBUTEROL/IPRATROPIUM 3 ML AMPUL INH ×4 (07:15→19:52)
[2023-12-11] MEDS: BUDESONIDE 0.5 MG/2 ML NEB INH ×2 (07:15→19:52)
--- NOTE | 2023-12-11 07:57 | P.PN_ITS ---
Subjective Subjective Interval history: Discharge to SNF is planned for tomorrow, December 11. They need to order a wound VAC today to have ready for her. S: She declines a blood transfusion, she is Jehov[employer] Witness. No pain control she was or dyspnea. Her anemia is subacute and likely relates to iron-deficiency anemia. Exam Vital Signs (past 8 hours): - 12/11/23 02:00 12/11/23 04:02 12/11/23 07:15 Temperature 97.0 F L Pulse Rate 75 69 Respiratory Rate 17 16 Blood Pressure 105/47 L Pulse Oximetry 95 95 95 Oxygen Delivery Method Room Air Oxygen Flow Rate 0.5 0 Fraction of Inspired Oxygen 21 Fraction of Inspired Oxygen 21 SaO2/FiO2 Ratio 452 Oxygen Delivery Method Room Air Oxygen Flow Rate 0 Narrative Exam Narrative: NAD, alert and oriented. Fluent speech. Lungs are clear, normal rate and effort. Heart is regular, no murmur gallop or rub. Abdomen is soft, non distended. Extremities are with 2+ edema. Less redness of the right lower extremity and wound VAC is in place with a wound looking good. Objective Labs 12/11/23 06:18 12/11/23 06:18 Labs: Laboratory Results - last 24 hr 12/10/23 12/10/23 12/11/23 08:35 14:35 06:18 WBC 9.7 RBC 2.92 L Hgb 6.8 L* Hct 20.9 L* MCV 71.5 L MCH 23.3 L MCHC 32.6 RDW 18.5 H Plt Count 431 H Neut % (Auto) 71.3 Lymph % (Auto) 18.8 L [place] % (Auto) 6.3 Eos % (Auto) 3.3 Baso % (Auto) 0.3 Neut # (Auto) 6900 Lymph # (Auto) 1800 [place] # (Auto) 600 Eos # (Auto) 300 Baso # (Auto) 0 Sodium 137 Potassium 3.5 Chloride 102 Carbon Dioxide 34 H BUN 17 Creatinine 0.80 Estimated GFR > 60 BUN/Creatinine Ratio 21.3 Glucose 113 H Calcium 8.5 Iron 37 TIBC 263 L % Saturation 14 L Transferrin 197 L Vancomycin Trough 16.3 PFSH Medical History Anxiety Depression CHF (congestive heart failure) COPD (chronic obstructive pulmonary disease) Diabetic nephropathy GERD (gastroesophageal reflux disease) Hypothyroid Afib Diabetes Surgical History History of incision and drainage Social History household members: none Smoking Status: Former smoker alcohol intake: never Assessment & Plan Assessment & Plan narrative: 1. Right lower extremity abscess, present on admission and improving. - continue ceftriaxone and vancomycin - change wound VAC Q 3 days. SNF tomorrow ([facility]). 2. Type 2 diabetes with chronic insulin use, present on admission and active. - continue home lantus 10 U daily 3. Chronic atrial fibrillation, present on admission and active. - continue home digoxin, diltiazem - resume home anticoagulation. 4. Anemia, present on admission and active. - Monitor. Iron studies. Declines blood, JW. 5. Hypothyroidism, present on admission and active. - continue home levothyroxine and liothyronine 150 mcg / 25 mcg respectively. 6. Chronic pain and opiate dependence, present on admission and active. - continue home methadone 10 mg BID, increased oxycodone to 10 mg prn q4 hr given acute pain, and dilaudid IV for severe pain. 7. Chronic lower extremity edema, present on admission and active. - continue home torsemide 60 mg daily 8. COPD without exacerbation, present on admission and active. - RT following, replace home medications with formulary nebulizer treatments. For now ordered for pulmicort, duo-neb, and as needed albuterol. 9. Morbid obesity, present on admission and active. The patient is at much higher risk for medical and surgical complications because of their obesity. This increases the difficulty and complexity of medical and surgical interventions and increases the chances of poor outcomes such as morbidity and mortality. 10. Hypokalemia, present on admission and improved. - replete as needed PLAN: -continue ceftriaxone and vancomycin today. Oral agents with a residential facility might include cephalexin only. The patient has negative cultures. -Nares MRSA screen ordered. -start iron 325 b.i.d. for probable iron-deficiency anemia. Add retic ct, B12, and folate. DELMY/Dispo: [facility] residential facility tomorrow, December 11 with wound [address] in place and to be changed every 3 days. Transitioned to oral antibiotics. Cultures negative. Time-Based Coding :: 25 min spent with patient and on the chart (including review of chart, obtaining history, exam, reviewing outside data, placing orders, documenting exam and treatment plan, and counseling patient) on 12/10. Quality VTE Deep Vein Thrombosis/Pulmonary Embolism Present on Admission: No
[2023-12-11] MEDS: CARBOXYMETHYLCELLULOSE DROPS 1 DROPS EYE-BOTH ×3 (08:37→20:21)
[2023-12-11] MEDS: INSULIN GLARGINE 100 UNIT/ML 3ML PEN 10 UNIT SUBCUT (08:38)
[2023-12-11] MEDS: SENNOSIDES 8.6 MG TABLET 25.8 MG PO ×2 (08:40→20:18)
[2023-12-11] MEDS: guaiFENesin ER 600 MG TAB PO ×2 (08:40→20:17)
[2023-12-11] MEDS: TORSEMIDE 10 MG TABLET 60 MG PO (08:41)
[2023-12-11] MEDS: DIGOXIN 0.125 MG TABLET 0.25 MG PO (08:41)
[2023-12-11] MEDS: dilTIAZem CD 120 MG CAP 240 MG PO (08:41)
[2023-12-11] MEDS: SERTRALINE 50 MG TABLET 200 MG PO (08:41)
[2023-12-11] MEDS: PREGABALIN 75 MG CAPSULE PO ×2 (08:43→20:17)
[2023-12-11] MEDS: METHADONE 10 MG TABLET PO ×2 (08:43→20:18)
[2023-12-11] MEDS: APIXABAN 5 MG TABLET PO ×2 (08:43→20:18)
[2023-12-11] MEDS: SODIUM CHLORIDE 0.9% FLUSH 10 ML IV (08:44)
--- NOTE | 2023-12-11 09:05 | CM.DPC ---
DCP Cont. Reviewed EMR and team rounds for status updates. Spoke with [facility], they can accept pt on Friday, time has not yet been confirmed. Plan is for her to be switched to oral antibiotics prior to d/c, [facility] has ordered her wound vac and meds, and they will be ready for her at time of admission.
[2023-12-11 10:10] LABS: Reticulocyte Count, Percent 2.6 % (1.1-2.6)
[2023-12-11] MEDS: INSULIN LISPRO 100 UNIT/ML 3ML VIAL SUBCUT ×3 (12:02→20:20)
[2023-12-11 12:27] LABS: Ferritin 45 ng/mL (11-264)
[2023-12-11 12:57] LABS: Folate 6.1 ng/mL (2.76-20.0); Vitamin B12 946 pg/mL (239-931)
[2023-12-11 13:09] LABS: MRSA (Nasal) PCR DETECTED (Not Detect)
--- NOTE | 2023-12-11 13:24 | PT-IP ANOTE ---
Pt states she has just finished moving around with bath and wound vac. She pleasantly prefers to rest and PT is in agreement. She states plan is to d/c to [facility] tomorrow.
[2023-12-11] MEDS: cefTRIAXone 1,000 MG in SODIUM CHLORIDE 0.9% 100 ML 200 MG IV (17:02)
[2023-12-11] MEDS: SODIUM CHLORIDE NASAL SPRAY 1 SPRAY NASAL (17:03)
[2023-12-11] MEDS: FERROUS SULFATE 325 MG TABLET PO (17:03)
--- NOTE | 2023-12-11 17:50 | PC.NURSE ---
Notified MD of critical low Hgb/Hct 6.8/20.9, MD ordered type and cross and 1 Unit PRBCs. Notified pt of plan to transfuse, pt notified this RN that she is [employer] and does not consent to PRBC tranfusion. Could not find prior documentation of this in chart. MD aware. Pt provided documentation regarding membership and no blood products, RN Luh Robb photocopied and added to paper file. Pt continues to refuse Q2 turns and repositioning, skin breakdown on bilateral buttocks continues. Cleaned and changed Allevyn dressing. MRSA PCR positive today, now on contact precautions.
[2023-12-11] MEDS: ATORVASTATIN 20 MG TABLET 40 MG PO (20:17)
[2023-12-12] VITALS (8 sets, daily range): BP systolic 122–136; BP diastolic 56–68; PULSE 69–94; RESP 16–20; TEMP 36.3–36.6; O2SAT 93–96
[2023-12-12] MEDS: SODIUM CHLORIDE 0.9% FLUSH 10 ML IV ×2 (05:26→08:21)
[2023-12-12] MEDS: LIOTHYRONINE 5 MCG TABLET 25 MCG PO (05:26)
[2023-12-12] MEDS: LEVOTHYROXINE 75 MCG TABLET 150 MCG PO (05:26)
[2023-12-12] MEDS: OXYCODONE IR 10 MG TABLET PO ×2 (05:26→12:15)
[2023-12-12 05:47] LABS: Add Manual Diff / Slide Review NO; Basophils Absolute Auto 0 /uL (0-100); Basophils Percent Auto 0.3 % (0-2); Eosinophils Absolute Auto 400 /uL (0-450); Eosinophils Percent Auto 3.3 % (2-4); Hematocrit 22.2 % (36-46); Hemoglobin 7.3 g/dL (12.0-16.0); Lymphocytes Absolute Auto 1600 /uL (1100-4500); Lymphocytes Percent Auto 14.9 % (25-40); Mean Corpuscular HGB Conc 32.8 % (30-36); Mean Corpuscular Hemoglobin 23.5 PG (26-34); Mean Corpuscular Volume 71.6 fL (80-100); Monocytes Absolute Auto 600 /uL (0-900); Monocytes Percent Auto 5.6 % (3-14); Neutrophils Absolute Auto 8100 /uL (1500-7000); Neutrophils Percent Auto 75.9 % (50-75); Platelet Count 457 X10^3/uL (150-400); Red Blood Cell Count 3.09 X10^6/uL (4.0-5.2); Red Cell Distribution Width 18.4 % (11.6-14.8); White Blood Cell Count 10.7 X10^3/uL (4.5-11.0)
[2023-12-12 06:02] LABS: BUN Creatinine Ratio 25.6 (6-22); Blood Urea Nitrogen 20 mg/dL (7-17); Calcium 8.4 mg/dL (8.4-10.2); Carbon Dioxide 34 mmol/L (22-32); Chloride 100 mmol/L (98-107); Estimated Glomerular Filt Rate > 60 mL/min (>60); Glucose 132 mg/dL (80-110); HEMOLYSIS < 15 (0-50); Potassium 3.6 mmol/L (3.4-5.1); Sodium 138 mmol/L (137-145)
[2023-12-12] MEDS: INSULIN GLARGINE 100 UNIT/ML 3ML PEN 10 UNIT SUBCUT (08:14)
[2023-12-12] MEDS: FERROUS SULFATE 325 MG TABLET PO (08:17)
[2023-12-12] MEDS: APIXABAN 5 MG TABLET PO (08:17)
[2023-12-12] MEDS: guaiFENesin ER 600 MG TAB PO (08:18)
[2023-12-12] MEDS: DIGOXIN 0.125 MG TABLET 0.25 MG PO (08:18)
[2023-12-12] MEDS: METHADONE 10 MG TABLET PO (08:19)
[2023-12-12] MEDS: SENNOSIDES 8.6 MG TABLET 25.8 MG PO (08:19)
[2023-12-12] MEDS: PREGABALIN 75 MG CAPSULE PO (08:19)
[2023-12-12] MEDS: SERTRALINE 50 MG TABLET 200 MG PO (08:20)
[2023-12-12] MEDS: TORSEMIDE 10 MG TABLET 60 MG PO (08:21)
[2023-12-12] MEDS: dilTIAZem CD 120 MG CAP 240 MG PO (08:23)
[2023-12-12] MEDS: BUDESONIDE 0.5 MG/2 ML NEB INH (10:47)
[2023-12-12] MEDS: ALBUTEROL/IPRATROPIUM 3 ML AMPUL INH (10:47)
--- NOTE | 2023-12-12 11:06 | CM.DPC ---
DCP Continued Reviewed EMR and team rounds for pt?s medical status. Per [facility], pt accepted for SNF today and will be picked up by facility van (with bariatric wheelchair) at 1330. Hospital exempt PASRR completed and Provider signed. RN notified of dc plans, provided RN report number. Plan: Discharge orders in, patient to discharge to [facility], bariatric wheelchair transport at 1330. CM Team will continue to follow for coordination of discharge plans. IVONNE Alvares
--- NOTE | 2023-12-12 11:37 | PT-IP ANOTE ---
checked on pt and pt refused PT. stated that she just got up and use the commode and that they just positioned the purewick on her and does not want to do PT.
--- NOTE | 2023-12-12 11:47 | P.DS_ITS ---
History of Present Illness History of Present Illness Date Patient Seen: 12/12/23 Time Patient Seen: 08:10 Date of Onset of Symptoms: 12/05/23 Chief complaint: Cellulitis Narrative: This is a 63 F with PMH of DM2, GERD, Obesity, prior R foot osteomyelitis, chronic afib on anticoagulation, HTN, hypothyroidism, chronic pain on methadone, chronic lower extremity edema, reported diastolic heart failure who presents with right leg pain and worsening swelling. She was seen at an OSH ER yesterday, had an I&D of a right leg abscess. Antibiotics were changed from cephalexin to doxycycline and she was given an orthopedics referral from the ER as the wound was overlying her right knee. Patient lives at [facility] living in [place]. She was brought to the [place] ER today for continued pain, worsening drianage from her bandages and concern about larger abscess. She denies fever, abdominal pain, nausea, vomiting, foot pain or hip pain. In the ER, she had elevated WBC at 17.8, but was afebrile. Glucose was 192, remainder of her chemistries were unremarkable. Bedside ultrasound with ER provider showed abscessess in multiple locations, CT scan was done which showed no knee joint involvement but did show 9x4x5 abscess. General surgery was asked to consult for operative I&D. She was admitted to medicine, started on ceftriaxone and vancomycin. Discharge Providers Provider Date of admission: 12/05/23 17:02 Discharge Date: 12/12/23 Primary care physician: Thierry Villeda MD Consults: 12/05/23 18:29 Consult to General Surgery Routine Comment: Consulting Provider: Tejas Zavaleta Reason for consultation: R leg abscess Has provider been notified: Yes 12/07/23 09:57 Consult to Physical Therapy Evaluate & Treat Comment: Physician Instructions: Evaluate and Treat Discharge provider: Eze Eason MD Summary Hospital Course Discharge Diagnosis: 1. Right lower extremity abscess, present on admission and improving. -treated with ceftriaxone and vancomycin during the hospitalization, transitioned to oral doxycycline at discharge -status post wound VAC placement, incision and drainage 12/06/2023, changed 12/09/2023 -change wound VAC Q 3 days. SNF tomorrow ([facility]). 2. Type 2 diabetes with chronic insulin use, present on admission and active. - continue home lantus 10 U daily 3. Chronic atrial fibrillation, present on admission and active. - continue home digoxin, diltiazem - resume home anticoagulation. 4. Anemia, present on admission and active. - Monitor. Iron studies. Declines blood, JW. - oral iron advised 5. Hypothyroidism, present on admission and active. - continue home levothyroxine and liothyronine 150 mcg / 25 mcg respectively. 6. Chronic pain and opiate dependence, present on admission and active. - continue home methadone 10 mg BID, increased oxycodone to 10 mg prn q4 hr given acute pain, and dilaudid IV for severe pain. 7. Chronic lower extremity edema, present on admission and active. - continue home torsemide 60 mg daily 8. COPD without exacerbation, present on admission and active. - RT following, replace home medications with formulary nebulizer treatments. For now ordered for pulmicort, duo-neb, and as needed albuterol. 9. Morbid obesity, present on admission and active. The patient is at much higher risk for medical and surgical complications because of their obesity. This increases the difficulty and complexity of medical and surgical interventions and increases the chances of poor outcomes such as morbidity and mortality. 10. Hypokalemia, present on admission and improved. - repleted 11. Nasal MRSA -treated with oral doxycycline at discharge 12. Iron deficiency anemia. -start iron 325mg daily for probable iron-deficiency anemia. Normal retic count, B12, and folate. Status at Discharge Cognitive/behavioral status at discharge: oriented Functional status at discharge: wheelchair bound Overall status at discharge: patient is progressing back to baseline Time Spent with Patient Time spent: Greater than 30 minutes Exam Vital Signs (past 8 hours): - 12/12/23 04:00 12/12/23 05:59 12/12/23 08:00 Temperature 97.9 F 97.3 F L Pulse Rate 69 78 Respiratory Rate 19 16 Blood Pressure 122/60 122/56 L Pulse Oximetry 96 96 95 Oxygen Delivery Method Oxygen Flow Rate 0 12/12/23 08:18 12/12/23 08:47 12/12/23 10:00 Temperature Pulse Rate 78 Respiratory Rate Blood Pressure 122/56 L Pulse Oximetry 95 Oxygen Delivery Method CPAP Room Air Oxygen Flow Rate 12/12/23 10:47 Temperature Pulse Rate 78 Respiratory Rate 16 Blood Pressure Pulse Oximetry 93 Oxygen Delivery Method Room Air Oxygen Flow Rate Fraction of Inspired Oxygen 21 SaO2/FiO2 Ratio 438 Oxygen Delivery Method Room Air Oxygen Flow Rate 0 Narrative Exam Narrative: NAD, alert and oriented. Fluent speech. Lungs are clear, normal rate and effort. Heart is regular, no murmur gallop or rub. Abdomen is soft, non distended. Extremities are with 2+ edema. Less redness of the right lower extremity and wound VAC is in place with a wound looking good. Objective Labs 12/12/23 05:32 12/12/23 05:32 Labs: Laboratory Results - last 24 hr 12/11/23 12/12/23 11:20 05:32 WBC 10.7 RBC 3.09 L Hgb 7.3 L Hct 22.2 L MCV 71.6 L MCH 23.5 L MCHC 32.8 RDW 18.4 H Plt Count 457 H Neut % (Auto) 75.9 H Lymph % (Auto) 14.9 L [place] % (Auto) 5.6 Eos % (Auto) 3.3 Baso % (Auto) 0.3 Neut # (Auto) 8100 H Lymph # (Auto) 1600 [place] # (Auto) 600 Eos # (Auto) 400 Baso # (Auto) 0 Sodium 138 Potassium 3.6 Chloride 100 Carbon Dioxide 34 H BUN 20 H Creatinine 0.78 Estimated GFR > 60 BUN/Creatinine Ratio 25.6 H Glucose 132 H Calcium 8.4 Ferritin 45 Vitamin B12 946 H Folate 6.1 Nasal Screen MRSA (PCR) Detected H PFSH Medical History Anxiety Depression CHF (congestive heart failure) COPD (chronic obstructive pulmonary disease) Diabetic nephropathy GERD (gastroesophageal reflux disease) Hypothyroid Afib Diabetes Surgical History History of incision and drainage Social History household members: none Smoking Status: Former smoker alcohol intake: never Discharge Plan Discharge Plan Patient Disposition: SNF Transfer to: [facility] Consult as needed: Dental, Hearing, Mental health, Podiatry and Vision Provider Discharge Comment: Followup with wound care clinic 1 week Discharge orders & Medications Prescriptions: New acetaminophen 325 mg Tablet 650 mg PO Q6H PRN (Reason: Fever/Mild Pain (1-3)) Qty: 60 0RF doxycycline hyclate 100 mg tablet 100 mg PO BID Qty: 14 0RF ferrous sulfate 325 mg (65 mg iron) tablet 325 mg PO DAILY Qty: 30 0RF Continued atorvastatin 40 mg tablet 40 mg PO DAILY digoxin 250 mcg (0.25 mg) tablet 250 mcg PO DAILY@1700 diltiazem HCl 300 mg capsule,extended release 24 hr 300 mg PO DAILY Eliquis 5 mg tablet 5 mg PO BID fluticasone propionate 50 mcg/actuation spray,suspension 2 spray intranasal DAILY insulin glargine [Lantus Solostar U-100 Insulin] 100 unit/mL (3 mL) insulin pen 10 unit SUBCUT DAILY Patient Comments: [NO ORIGINAL SIG] guaifenesin 600 mg Tablet Extended Release 12hr 600 mg PO BID Januvia 50 mg tablet 50 mg PO DAILY levothyroxine 150 mcg tablet 150 mcg PO DAILY@0600 liothyronine 25 mcg tablet 25 mcg PO DAILY@0600 magnesium chloride 64 mg Tablet Extended Release 64 mg PO DAILY metformin 1,000 mg tablet,ER douglas.retention 24 hr 1,000 mg PO BID omeprazole 20 mg capsule,delayed release(DR/EC) 20 mg PO DAILY potassium chloride 20 mEq tablet,ER particles/crystals 20 meq PO BID pregabalin 75 mg capsule 75 mg PO BID sertraline 100 mg tablet 200 mg PO DAILY Spiriva Respimat 2.5 mcg/actuation mist 2 puff inhalation DAILY torsemide 20 mg tablet 40 mg PO DAILY Rx Instructions: takes it at noon acetaminophen 500 mg Tablet 1,000 mg BID PRN (Reason: Pain (Scale Score 1-3)) benzonatate 100 mg Capsule 100 mg PO DAILY PRN (Reason: Cough) tizanidine 4 mg tablet 4 mg PO Q6H PRN (Reason: Muscle Spasm) Airborne (ascorbic acid) 250-8.875 mg Tablet,Chewable 250 tab PO DAILY budesonide-formoterol [Symbicort] 160-4.5 mcg/actuation HFA aerosol inhaler 2 puff inhalation BID fluticasone propion-salmeterol 250-50 mcg/dose blister with device 1 ea inhalation BID ipratropium-albuterol 0.5 mg-3 mg(2.5 mg base)/3 mL Solution For Nebulization 3 ml INHALATION Q8HR methadone 10 mg tablet 10 mg PO BID Qty: 60 0RF oxycodone 10 mg tablet 10 mg PO 3XD PRN (Reason: Pain (Scale Score 7-10)) Qty: 90 0RF Discontinued doxycycline hyclate 100 mg tablet 100 mg PO BID Follow up/Referrals: hTierry Villeda MD [Primary Care Provider] - Diet/Activity/Treatments Diet: Carb-consistent/Diabetic and Low-sodium Skin/Wound/Dressing Care Report to your healthcare provider any signs of infection, such as:: chills, fever, night sweats, increased pain, unusual drainage and unusual redness Special Rehabilitation Services Rehab type: Physical therapy and Occupational therapy Visit Report/Discharge Packet Stand Alone Forms: Patient Portal/API Discharge Data Primary Care Provider: Thierry Villeda Quality VTE Deep Vein Thrombosis/Pulmonary Embolism Present on Admission: No MIPS - Admit I confirm the patient?s Advance Care Plan is present, Code status is documented, Surrogate decision maker is in patient?s record [If Yes, STOP here]: Yes MIPS - Meds 'Current medications' to include all prescriptions, [id number] products, herbals, cannabis/cannabidiol products, and vitamin/mineral/dietary (nutritional) supplements. I have utilized all available resources to obtain, update, or review the patient?s current medications. [If Yes, STOP here]: Yes MIPS - DC The patient has a history of heart transplant or Left Ventricular Assist Device (LVAD). If yes, STOP here.: No The patient has current or prior documentation of left ventricular ejection fraction (LVEF) less than or equal to 40%, or moderate or severely depressed left ventricular systolic function.: No A. The patient was prescribed or already taking an Angiotensin-Converting Enzyme (PETER) Inhibitor, or Angiotensin Receptor John (ARB).: No B. The patient was prescribed or already taking a beta-john. [If Yes to Both A & B, STOP here]: No Patient not prescribed/taking PETER or ARB, no reason given.: No Patient not prescribed/taking beta-john, no reason given.: No PROFEE Charge Codes Discharge inpatient/observation: 32097
[2023-12-12] MEDS: INSULIN LISPRO 100 UNIT/ML 3ML VIAL SUBCUT (12:16)
--- NOTE | 2023-12-12 14:27 | PC.NURSE ---
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
== END 2023-12-12 14:25 | DRG 571 ==
LOC: ED 16:58 → AC 17:02
PROVIDERS: Hospitalist; Surgery; Admitting Provider Internal Medicine; Emergency Provider Emergency Medicine; PCP Internal Medicine; Referring Provider Emergency Medicine; Visit Provider Internal Medicine
PROC: 0JBN0ZZ Excision of Right Lower Leg Subcutaneous Tissue and Fascia, Open Approach (ICD-10-PCS; principal; 2023-12-06 09:00)
PROC: 0HBLXZZ Excision of Left Lower Leg Skin, External Approach (ICD-10-PCS; principal; 2023-12-09 13:00)
DX: L02.415 Cutaneous abscess of right lower limb (principal); F11.20 Opioid dependence, uncomplicated; I48.20 Chronic atrial fibrillation, unspecified; Z68.43 Body mass index [BMI] 50.0-59.9, adult; I50.30 Unspecified diastolic (congestive) heart failure; G89.29 Other chronic pain; E11.9 Type 2 diabetes mellitus without complications; E03.9 Hypothyroidism, unspecified; J44.9 Chronic obstructive pulmonary disease, unspecified; E66.01 Morbid (severe) obesity due to excess calories; E87.6 Hypokalemia; D64.9 Anemia, unspecified; R60.1 Generalized edema; B95.62 Methicillin resistant Staphylococcus aureus infection as the cause of diseases classified elsewhere; D50.9 Iron deficiency anemia, unspecified; I11.0 Hypertensive heart disease with heart failure; K21.9 Gastro-esophageal reflux disease without esophagitis; F32.A Depression, unspecified; Z87.891 Personal history of nicotine dependence; Z79.4 Long term (current) use of insulin; Z79.01 Long term (current) use of anticoagulants; Z99.3 Dependence on wheelchair; Z79.84 Long term (current) use of oral hypoglycemic drugs
CPT/HCPCS: 36415; 36592; 73701; 80048; 80053; 80202; 82607; 82728; 82746; 82962; 83036; 83540; 83550; 83605; 83735; 85025; 85045; 86850; 86900; 86901; 87040; 87070; 87075; 87076; 87185; 87205; 87797; 94640; 94760; 96365; 97161; 97530; 99284; A9270; J0136; J0330; J0696; J1170; J1642; J1815; J2250; J2470; J2704; J3010; J7613; Q9967

== ENCOUNTER → 2024-01-01 21:06 | Outpatient (ROUT) | payer MEDICARE, MEDICAID, SELFPAY ==
[2023-12-11 11:35] VITALS: BMI 52.6
== END ==
PROVIDERS: PCP Internal Medicine; Visit Provider Internal Medicine
DX: L02.415 Cutaneous abscess of right lower limb (principal)
CPT/HCPCS: 87070; 87075; 87077; 87205

== ENCOUNTER 2024-01-07 17:35 | Observation (INO) | payer MEDICARE, MEDICAID, SELFPAY ==
[2023-12-11 11:35] VITALS: BMI 52.6
[2024-01-07] VITALS (12 sets, daily range): BP systolic 104–126; BP diastolic 54–76; PULSE 70–87; RESP 18–20; TEMP 36.7; O2SAT 92–95; BMI 53.1
--- NOTE | 2024-01-07 18:41 | PC.NURSE ---
Wound on R flores covered by wound vac sponge. Skin around wound vac appears mildly red however pt denies that it getting worse. Pt taking Linzolid abx. Afebrile. HR 74. No exudate or overt sign of infection noted.
--- NOTE | 2024-01-07 18:49 | ED.WOUNDLAC ---
HPI - Wound/Laceration General Chief Complaint: Wound/Laceration Stated Complaint: Leg Wound Time Seen by Provider: 01/07/24 17:55 Source: patient and EMS Mode of arrival: EMS Limitations: no limitations History of Present Illness HPI narrative: Patient is a 63-year-old female. Approximately 3 weeks ago she was seen in this department and admitted to the hospital for a right lower extremity cellulitis/abscess. She underwent 2 surgeries. Has a wound VAC in place. Has been at a rehab facility since then. She was here because the home health nurse who has been changing her wound VAC was concerned about potentially worsening cellulitis of her right leg. She was sent home on doxycycline. She was completed the course of doxycycline. He stated that she has had redness and warmth to the right leg that has been worsening over the past couple days. No fevers. No new trauma. Related Data Home Medications Medication Instructions Recorded Confirmed acetaminophen 500 mg tablet 1,000 mg BID PRN Pain (Scale Score 12/05/23 12/05/23 1-3) apixaban 5 mg tablet (Eliquis) 5 mg PO BID 12/05/23 12/05/23 atorvastatin 40 mg tablet 40 mg PO DAILY 12/05/23 12/05/23 benzonatate 100 mg capsule 100 mg PO DAILY PRN Cough 12/05/23 12/08/23 digoxin 250 mcg (0.25 mg) tablet 250 mcg PO DAILY@1700 12/05/23 12/08/23 diltiazem HCl 300 mg capsule,24 300 mg PO DAILY 12/05/23 12/05/23 hr,extended release fluticasone propionate 50 2 spray intranasal DAILY ALLERGY 12/05/23 12/08/23 mcg/actuation nasal spray,suspension guaifenesin 600 mg tablet, 600 mg PO BID 12/05/23 12/05/23 extended release 12 hr insulin glargine 100 unit/mL (3 10 unit SUBCUT DAILY 12/05/23 12/08/23 mL) subcutaneous pen (Lantus Solostar U-100 Insulin) levothyroxine 150 mcg tablet 150 mcg PO DAILY@0600 12/05/23 12/08/23 liothyronine 25 mcg tablet 25 mcg PO DAILY@0600 12/05/23 12/08/23 magnesium chloride 64 mg 64 mg PO DAILY 12/05/23 12/08/23 tablet,extended release metformin 1,000 mg 24 hr 1,000 mg PO BID 12/05/23 12/08/23 tablet,extended release (gastric reten.) omeprazole 20 mg capsule,delayed 20 mg PO DAILY 12/05/23 12/05/23 release potassium chloride 20 mEq 20 meq PO BID 12/05/23 12/05/23 tablet,extended release(part/cryst) pregabalin 75 mg capsule 75 mg PO BID 12/05/23 12/05/23 sertraline 100 mg tablet 200 mg PO DAILY 12/05/23 12/05/23 sitagliptin phosphate 50 mg tablet 50 mg PO DAILY 12/05/23 12/05/23 (Januvia) tiotropium bromide 2.5 2 puff inhalation DAILY 12/05/23 12/05/23 mcg/actuation mist for inhalation (Spiriva Respimat) tizanidine 4 mg tablet 4 mg PO Q6H PRN Muscle Spasm 12/05/23 12/08/23 torsemide 20 mg tablet 40 mg PO DAILY 12/05/23 12/08/23 budesonide-formoterol HFA 160 2 puff inhalation BID 12/08/23 12/08/23 mcg-4.5 mcg/actuation aerosol inhaler (Symbicort) fluticasone 250 mcg-salmeterol 50 1 ea inhalation BID 12/08/23 12/08/23 mcg/dose blistr powdr for inhalation ipratropium 0.5 mg-albuterol 3 mg 3 ml inhalation Q8HR 12/08/23 12/08/23 (2.5 mg base)/3 mL nebulization soln [id number] C 250 250 tab PO DAILY 12/08/23 12/08/23 mg-herbal no.124 8.875 mg chewable tablet (Airborne (ascorbic acid)) Previous Rx's Medication Instructions Recorded acetaminophen 325 mg tablet 650 mg (2 x 325 mg) PO Q6H PRN 12/12/23 Fever/Mild Pain (1-3) #60 tabs doxycycline hyclate 100 mg tablet 100 mg PO BID #14 tabs 12/12/23 ferrous sulfate 325 mg (65 mg 325 mg PO DAILY #30 tabs 12/12/23 iron) tablet methadone 10 mg tablet 10 mg PO BID #60 tabs 12/12/23 oxycodone 10 mg tablet 10 mg PO 3XD PRN Pain (Scale Score 12/12/23 7-10) #90 tabs Allergies Allergy/AdvReac Type Severity Reaction Status Date / Time Sulfa (Sulfonamide Allergy Verified 12/05/23 15:46 Antibiotics) Review of Systems Review of Systems ROS Unobtainable: All systems reviewed & are unremarkable except as noted in HPI and below Patient History Medical History Anxiety Depression CHF (congestive heart failure) COPD (chronic obstructive pulmonary disease) Diabetic nephropathy GERD (gastroesophageal reflux disease) Hypothyroid Afib Diabetes Surgical History History of incision and drainage Social History household members: none Smoking Status: Former smoker alcohol intake: never Smoking Status: Former smoker Substance Use Type: does not use Exam Initial Vital Signs Initial Vital Signs: Vital Signs Pulse Rate 76 01/07/24 17:45 Pulse Oximetry 93 01/07/24 17:45 HENMT Head: normal to inspection and normocephalic Resp Effort & Inspection: normal respiratory effort Cardio Rate: regular rate Skin Other: Wound VAC in place anterior aspect of the right proximal tibia just distal to the knee. There is surrounding erythema from this area mostly in the anterior portion of the leg extending down to her ankle. Neuro General: patient alert, patient awake and patient oriented x3 Sensory Exam: no sensory deficits noted Extrem Other: No crepitus noted no fluctuance noted around the areas of the wound VAC or in the anterior portion of the right flores. Scores GCS Ka[place] coma scale eye opening: Spontaneous [place] coma scale verbal response: Orientated [place] coma scale motor response: Obey commands [place] coma scale total score: 15 Course Orders Ordered: ED Orders 01/07/24 19:00 Complete Blood Count AUTO DIFF Stat Comprehensive Metabolic Panel Stat Lactate (Lactic Acid) Stat Lipase Stat Procalcitonin Stat 01/07/24 20:28 Blood Culture Stat 01/07/24 20:37 Consult to General Surgery Stat Discontinued Medications Ceftriaxone Sodium 1,000 mg/ (Sodium Chloride) 100 mls @ 200 mls/hr IV NOW ONE Stop: 01/07/24 20:15 Last Infusion: 01/07/24 21:05 Dose: Infused Documented By: Admin: 01/07/24 20:37 Dose: 200 mls/hr Documented By: Vancomycin HCl/Dextrose (Vancomycin) 2,000 mg in 400 mls @ 200 mls/hr IV NOW ONE Stop: 01/07/24 22:44 Last Admin: 01/07/24 21:11 Dose: 200 mls/hr Documented By: Vital Signs Vital signs: Vital Signs - 8 hr 01/07/24 17:45 01/07/24 17:51 01/07/24 18:00 Temperature 98.1 F Pulse Rate 76 82 72 Respiratory Rate 20 Blood Pressure 126/76 Pulse Oximetry 93 94 92 Oxygen Delivery Method Room Air 01/07/24 18:00 01/07/24 18:30 01/07/24 18:30 Temperature Pulse Rate 80 Respiratory Rate Blood Pressure 115/61 113/58 L Pulse Oximetry 94 Oxygen Delivery Method 01/07/24 19:00 01/07/24 19:00 01/07/24 19:30 Temperature Pulse Rate 80 70 Respiratory Rate Blood Pressure 121/74 Pulse Oximetry 92 93 Oxygen Delivery Method 01/07/24 19:31 01/07/24 19:31 01/07/24 20:00 Temperature Pulse Rate 75 86 Respiratory Rate Blood Pressure 104/54 L Pulse Oximetry 95 93 Oxygen Delivery Method 01/07/24 20:00 01/07/24 20:30 01/07/24 20:31 Temperature Pulse Rate 74 Respiratory Rate Blood Pressure 111/62 110/64 Pulse Oximetry 93 Oxygen Delivery Method 01/07/24 20:31 01/07/24 21:00 01/07/24 21:00 Temperature Pulse Rate 77 87 Respiratory Rate 18 Blood Pressure 112/63 Pulse Oximetry 93 95 Oxygen Delivery Method MDM - Wound/Laceration Medical Records Attestation: I reviewed the patient's medical records. Lab Data Attestation: I reviewed the patient's lab results. 01/07/24 19:00 01/07/24 19:00 Labs: Lab Results 01/07/24 Range/Units 19:00 WBC 11.8 H (4.5-11.0) X10^3/uL RBC 3.98 L (4.0-5.2) X10^6/uL Hgb 8.9 L (12.0-16.0) g/dL Hct 28.3 L (36-46) % MCV 71.1 L (80-100) fL MCH 22.5 L (26-34) PG MCHC 31.6 (30-36) % RDW 19.1 H (11.6-14.8) % Plt Count 411 H (150-400) X10^3/uL Neut % (Auto) 77.9 H (50-75) % Lymph % (Auto) 13.3 L (25-40) % [place] % (Auto) 5.4 (3-14) % Eos % (Auto) 3.2 (2-4) % Baso % (Auto) 0.2 (0-2) % Neut # (Auto) 9200 H (8347-1663) /uL Lymph # (Auto) 1600 (3970-8501) /uL [place] # (Auto) 600 (0-900) /uL Eos # (Auto) 400 (0-450) /uL Baso # (Auto) 0 (0-100) /uL Sodium 140 (137-145) mmol/L Potassium 3.9 (3.4-5.1) mmol/L Chloride 97 L (98-107) mmol/L Carbon Dioxide 33 H (22-32) mmol/L BUN 26 H (7-17) mg/dL Creatinine 0.94 (0.52-1.04) mg/dL Estimated GFR > 60 (>60) mL/min BUN/Creatinine Ratio 27.7 H (6-22) Glucose 110 (80-110) mg/dL Lactate 1.9 (0.7-2.1) mmol/L Calcium 9.4 (8.4-10.2) mg/dL Total Bilirubin 0.5 (0.2-1.3) mg/dL AST 19 (14-36) IU/L ALT 15 (<35) IU/L Alkaline Phosphatase 99 (38-126) U/L Total Protein 7.7 (6.3-8.2) g/dL Albumin 4.2 (3.5-5.0) g/dL Globulin 3.5 (1.7-4.1) g/dL Albumin/Globulin Ratio 1.2 (1.0-2.8) Lipase 70 (23-300) U/L Procalcitonin 0.087 (<0.5) ng/mL MDM Narrative Medical decision making narrative: Physical exam today is consistent with a cellulitis to the anterior portion of the right leg. I have low suspicion for abscess/gas forming organism based on her exam today. She was relatively well-appearing. Is afebrile. Does have leukocytosis. Normal lactate. Discussed the case with Dr. Zavaleta on-call for general surgeon who asked that the patient be admitted to the medicine service and he would follow along. Then discussed the case with Dr. Boyer hospitalist on-call who will admit for further evaluation and treatment. Discharge Plan Departure Patient Disposition: Admitted as Observation Clinical Impression: Cellulitis Admit Date/Time: 01/07/24 21:26 Admit Provider: Wade Boyer
[2024-01-07 19:10] LABS: Add Manual Diff / Slide Review NO; Basophils Absolute Auto 0 /uL (0-100); Basophils Percent Auto 0.2 % (0-2); Eosinophils Absolute Auto 400 /uL (0-450); Eosinophils Percent Auto 3.2 % (2-4); Hematocrit 28.3 % (36-46); Hemoglobin 8.9 g/dL (12.0-16.0); Lymphocytes Absolute Auto 1600 /uL (1100-4500); Lymphocytes Percent Auto 13.3 % (25-40); Mean Corpuscular HGB Conc 31.6 % (30-36); Mean Corpuscular Hemoglobin 22.5 PG (26-34); Mean Corpuscular Volume 71.1 fL (80-100); Monocytes Absolute Auto 600 /uL (0-900); Monocytes Percent Auto 5.4 % (3-14); Neutrophils Absolute Auto 9200 /uL (1500-7000); Neutrophils Percent Auto 77.9 % (50-75); Platelet Count 411 X10^3/uL (150-400); Red Blood Cell Count 3.98 X10^6/uL (4.0-5.2); Red Cell Distribution Width 19.1 % (11.6-14.8); White Blood Cell Count 11.8 X10^3/uL (4.5-11.0)
[2024-01-07 19:22] LABS: Alanine Aminotransferase 15 IU/L (<35); Albumin 4.2 g/dL (3.5-5.0); Albumin Globulin Ratio 1.2 (1.0-2.8); Alkaline Phosphatase 99 U/L (38-126); Aspartate Aminotransferase 19 IU/L (14-36); BUN Creatinine Ratio 27.7 (6-22); Bilirubin Total 0.5 mg/dL (0.2-1.3); Blood Urea Nitrogen 26 mg/dL (7-17); Calcium 9.4 mg/dL (8.4-10.2); Carbon Dioxide 33 mmol/L (22-32); Chloride 97 mmol/L (98-107); Estimated Glomerular Filt Rate > 60 mL/min (>60); Globulin 3.5 g/dL (1.7-4.1); Glucose 110 mg/dL (80-110); HEMOLYSIS < 15 (0-50); Lipase 70 U/L (23-300); Potassium 3.9 mmol/L (3.4-5.1); Sodium 140 mmol/L (137-145); Total Protein 7.7 g/dL (6.3-8.2)
[2024-01-07 19:40] LABS: Procalcitonin 0.087 ng/mL (<0.5)
[2024-01-07 20:01] LABS: Lactate (Lactic Acid) 1.9 mmol/L (0.7-2.1)
[2024-01-07] MEDS: cefTRIAXone 1,000 MG in SODIUM CHLORIDE 0.9% 100 ML 200 MG IV (20:37)
[2024-01-07] MEDS: VANCOMYCIN 2,000 MG/400 ML PIGGYBACK 200 MG IV (21:11)
[2024-01-08] VITALS (27 sets, daily range): BP systolic 102–135; BP diastolic 53–62; PULSE 70–97; RESP 15–31; TEMP 36.5–37.3; O2SAT 93–98
[2024-01-08 01:17] LABS: MRSA (Nasal) PCR DETECTED (Not Detect)
[2024-01-08] MEDS: OXYCODONE IR 10 MG TABLET PO ×4 (02:40→23:20)
[2024-01-08 05:03] LABS: INR 1.5 (0.9-1.3); Prothrombin Time 16.7 SECONDS (9.4-12.5)
[2024-01-08 05:04] LABS: Add Manual Diff / Slide Review NO; Basophils Absolute Auto 100 /uL (0-100); Basophils Percent Auto 0.6 % (0-2); Eosinophils Absolute Auto 400 /uL (0-450); Eosinophils Percent Auto 3.5 % (2-4); Hematocrit 27.9 % (36-46); Hemoglobin 8.9 g/dL (12.0-16.0); Lymphocytes Absolute Auto 1100 /uL (1100-4500); Lymphocytes Percent Auto 9.7 % (25-40); Mean Corpuscular HGB Conc 31.9 % (30-36); Mean Corpuscular Hemoglobin 23.2 PG (26-34); Mean Corpuscular Volume 72.8 fL (80-100); Monocytes Absolute Auto 700 /uL (0-900); Monocytes Percent Auto 5.7 % (3-14); Neutrophils Absolute Auto 9200 /uL (1500-7000); Neutrophils Percent Auto 80.5 % (50-75); Platelet Count 393 X10^3/uL (150-400); Red Blood Cell Count 3.83 X10^6/uL (4.0-5.2); Red Cell Distribution Width 19.3 % (11.6-14.8); White Blood Cell Count 11.4 X10^3/uL (4.5-11.0)
[2024-01-08 05:21] LABS: BUN Creatinine Ratio 25.3 (6-22); Blood Urea Nitrogen 23 mg/dL (7-17); Carbon Dioxide 35 mmol/L (22-32); Chloride 96 mmol/L (98-107); Estimated Glomerular Filt Rate > 60 mL/min (>60); Glucose 125 mg/dL (80-110); HEMOLYSIS < 15 (0-50); Phosphorous 3.8 mg/dL (2.8-4.1); Potassium 3.3 mmol/L (3.4-5.1); Sodium 138 mmol/L (137-145)
[2024-01-08 05:30] LABS: NT-proBNP (BNP-Adult 18+) 2260 pg/mL (<125)
--- NOTE | 2024-01-08 06:21 | P.HP_ITS ---
History of Present Illness History of Present Illness Date Patient Seen: 01/08/24 Time Patient Seen: 02:13 Chief complaint: Leg Wound Narrative: 63 years old female with a past medical history of right lower extremity cellulitis/abscess status post drainage with wound VAC placement and recent hospitalization, diabetes, atrial fibrillation, anemia COPD and multiple other medical issues was sent in from the rehab to the emergency room due to worsening erythema with tenderness of the right lower extremity. Currently wound VAC in place and the wound care nurse was concerned the infection was getting worse. Recently had completed a course of doxycycline. No recent trauma. Denies any fever episodes. Denies any chest pain shortness of breath palpitation dizziness. Denies any nausea vomiting abdominal pain. Noted to have significant erythema in the anterior portion of the leg extending down to her ankle on the right side in the emergency room. Subsequent labs revealed a white count of 11.8 hemoglobin of 8.9. Sodium 140 with a BUN of 26 creatinine of 0.9. Blood sugar is 110. Procalcitonin is 0.087 with a lipase of 70. Emergency room discussed with general surgeon Dr. Zavaleta on-call and advised admission. Does not appear to have any active abscess at this time and not needing urgent surgical intervention. Subsequently initiated on IV Rocephin/vancomycin and admitted for further evaluation [facility] Medical History Anxiety Depression CHF (congestive heart failure) COPD (chronic obstructive pulmonary disease) Diabetic nephropathy GERD (gastroesophageal reflux disease) Hypothyroid Afib Diabetes Surgical History History of incision and drainage Social History household members: children and none Smoking Status: Former smoker alcohol intake: never Meds Home Medications and Allergies Home Medications Medication Instructions Recorded Confirmed Type acetaminophen 500 mg tablet 1,000 mg BID PRN Pain (Scale Score 12/05/23 12/05/23 History 1-3) apixaban 5 mg tablet (Eliquis) 5 mg PO BID 12/05/23 12/05/23 History atorvastatin 40 mg tablet 40 mg PO DAILY 12/05/23 12/05/23 History benzonatate 100 mg capsule 100 mg PO DAILY PRN Cough 12/05/23 12/08/23 History digoxin 250 mcg (0.25 mg) tablet 250 mcg PO DAILY@1700 12/05/23 12/08/23 History diltiazem HCl 300 mg capsule,24 300 mg PO DAILY 12/05/23 12/05/23 History hr,extended release fluticasone propionate 50 2 spray intranasal DAILY ALLERGY 12/05/23 12/08/23 History mcg/actuation nasal spray,suspension guaifenesin 600 mg tablet, 600 mg PO BID 12/05/23 12/05/23 History extended release 12 hr insulin glargine 100 unit/mL (3 10 unit SUBCUT DAILY 12/05/23 12/08/23 History mL) subcutaneous pen (Lantus Solostar U-100 Insulin) levothyroxine 150 mcg tablet 150 mcg PO DAILY@0600 12/05/23 12/08/23 History liothyronine 25 mcg tablet 25 mcg PO DAILY@0612/05/23 12/08/23 History magnesium chloride 64 mg 64 mg PO DAILY 12/05/23 12/08/23 History tablet,extended release metformin 1,000 mg 24 hr 1,000 mg PO BID 12/05/23 12/08/23 History tablet,extended release (gastric reten.) omeprazole 20 mg capsule,delayed 20 mg PO DAILY 12/05/23 12/05/23 History release potassium chloride 20 mEq 20 meq PO BID 12/05/23 12/05/23 History tablet,extended release(part/cryst) pregabalin 75 mg capsule 75 mg PO BID 12/05/23 12/05/23 History sertraline 100 mg tablet 200 mg PO DAILY 12/05/23 12/05/23 History sitagliptin phosphate 50 mg tablet 50 mg PO DAILY 12/05/23 12/05/23 History (Januvia) tiotropium bromide 2.5 2 puff inhalation DAILY 12/05/23 12/05/23 History mcg/actuation mist for inhalation (Spiriva Respimat) tizanidine 4 mg tablet 4 mg PO Q6H PRN Muscle Spasm 12/05/23 12/08/23 History torsemide 20 mg tablet 40 mg PO DAILY 12/05/23 12/08/23 History budesonide-formoterol HFA 160 2 puff inhalation BID 12/08/23 12/08/23 History mcg-4.5 mcg/actuation aerosol inhaler (Symbicort) fluticasone 250 mcg-salmeterol 50 1 ea inhalation BID 12/08/23 12/08/23 History mcg/dose blistr powdr for inhalation ipratropium 0.5 mg-albuterol 3 mg 3 ml inhalation Q8HR 12/08/23 12/08/23 History (2.5 mg base)/3 mL nebulization soln pkmtpigg-fsnoahpg-cyl C 250 250 tab PO DAILY 12/08/23 12/08/23 History mg-herbal no.124 8.875 mg chewable tablet (Airborne (ascorbic acid)) acetaminophen 325 mg tablet 650 mg (2 x 325 mg) PO Q6H PRN 12/12/23 Rx Fever/Mild Pain (1-3) #60 tabs doxycycline hyclate 100 mg tablet 100 mg PO BID #14 tabs 12/12/23 Rx ferrous sulfate 325 mg (65 mg 325 mg PO DAILY #30 tabs 12/12/23 Rx iron) tablet methadone 10 mg tablet 10 mg PO BID #60 tabs 12/12/23 Rx oxycodone 10 mg tablet 10 mg PO 3XD PRN Pain (Scale Score 12/12/23 Rx 7-10) #90 tabs Allergies Allergy/AdvReac Type Severity Reaction Status Date / Time Sulfa (Sulfonamide Allergy Verified 12/05/23 15:46 Antibiotics) Review of Systems Review of Systems Narrative: 12 point review of systems negative unless otherwise stated in the history of present illness Exam Vital Signs (past 8 hours): - 01/07/24 23:12 01/08/24 00:36 Temperature 99.2 F Pulse Rate 72 Respiratory Rate 18 Blood Pressure 121/59 L Pulse Oximetry 93 Oxygen Delivery Method Room Air Oxygen Flow Rate 0 Oxygen Delivery Method Room Air Oxygen Flow Rate 0 Narrative Exam Narrative: Per RN Patient is awake and does not appear to be in acute distress. Air entry equal bilaterally no wheezes no crackles wound vac in place Objective Labs 01/08/24 04:10 01/08/24 04:10 Labs: Laboratory Results - last 24 hr 01/07/24 01/07/24 01/08/24 19:00 23:06 04:10 WBC 11.8 H 11.4 H RBC 3.98 L 3.83 L Hgb 8.9 L 8.9 L Hct 28.3 L 27.9 L MCV 71.1 L 72.8 L MCH 22.5 L 23.2 L MCHC 31.6 31.9 RDW 19.1 H 19.3 H Plt Count 411 H 393 Neut % (Auto) 77.9 H 80.5 H Lymph % (Auto) 13.3 L 9.7 L [place] % (Auto) 5.4 5.7 Eos % (Auto) 3.2 3.5 Baso % (Auto) 0.2 0.6 Neut # (Auto) 9200 H 9200 H Lymph # (Auto) 1600 1100 [place] # (Auto) 600 700 Eos # (Auto) 400 400 Baso # (Auto) 0 100 PT 16.7 H INR 1.5 H Sodium 140 138 Potassium 3.9 3.3 L Chloride 97 L 96 L Carbon Dioxide 33 H 35 H BUN 26 H 23 H Creatinine 0.94 0.91 Estimated GFR > 60 > 60 BUN/Creatinine Ratio 27.7 H 25.3 H Glucose 110 125 H Lactate 1.9 Calcium 9.4 9.0 Phosphorus 3.8 Magnesium 2.0 Total Bilirubin 0.5 AST 19 ALT 15 Alkaline Phosphatase 99 NT-Pro-B Natriuret Pep 2260 H Total Protein 7.7 Albumin 4.2 Globulin 3.5 Albumin/Globulin Ratio 1.2 Lipase 70 Procalcitonin 0.087 Nasal Screen MRSA (PCR) Detected H Assessment & Plan Assessment & Plan narrative: 63 years old female with a past medical history of right lower extremity cellulitis/abscess status post drainage with wound VAC placement and recent hospitalization, diabetes, atrial fibrillation, anemia COPD and multiple other medical issues was sent in from the rehab to the emergency room due to worsening erythema with tenderness of the right lower extremity. Currently wound VAC in place and the wound care nurse was concerned the infection was getting worse. Recently had completed a course of doxycycline. No recent trauma. Denies any fever episodes. Denies any chest pain shortness of breath palpitation dizziness. Denies any nausea vomiting abdominal pain. Noted to have significant erythema in the anterior portion of the leg extending down to her ankle on the right side in the emergency room. Subsequent labs revealed a white count of 11.8 hemoglobin of 8.9. Sodium 140 with a BUN of 26 creatinine of 0.9. Blood sugar is 110. Procalcitonin is 0.087 with a lipase of 70. Emergency room discussed with general surgeon Dr. Zavaleta on-call and advised admission. Does not appear to have any active abscess at this time and not needing urgent surgical intervention. Subsequently initiated on IV Rocephin/vancomycin and admitted for further evaluation 1 right lower extremity cellulitis in a patient with a recent history of cellulitis/abscess needing I&D with subsequent wound VAC placement. Currently in rehab and was scheduled for wound VAC redressing tomorrow. Surgery have been consulted and continue wound care. Continue IV Rocephin/vancomycin initiated in the emergency room 2 Diabetes mellitus type 2. Resume the home meds including Lantus and watch the blood sugar ACHS with sliding scale 3. Atrial fibrillation chronic. Resume the home meds for rate control and anticoagulation 4 Hypothyroidism. Resume the home meds including levothyroxine and liothyronine 5 Chronic pain resume the home methadone/oxycodone with #6 COPD chronic and appears to be stable at baseline. Continue home inhaler as needed 7 Anemia chronic and appears to be stable with no active bleeding 8. DVT prophylaxis per resume the home Eliquis after home meds have been verified Patient will be admitted under observation status Patient was evaluated with the help of her video communication device. Location of the patient is [facility] in [facility] Time-Based Coding :: [TOTAL MINUTES] spent with patient and on the chart (including review of chart, obtaining history, exam, reviewing outside data, placing orders, documenting exam and treatment plan, and counseling patient) on [DATE].
[2024-01-08 07:37] LABS: Add Manual Diff / Slide Review NO; Basophils Absolute Auto 0 /uL (0-100); Basophils Percent Auto 0.4 % (0-2); Eosinophils Absolute Auto 400 /uL (0-450); Eosinophils Percent Auto 3.3 % (2-4); Hematocrit 27.2 % (36-46); Hemoglobin 8.6 g/dL (12.0-16.0); Lymphocytes Absolute Auto 1300 /uL (1100-4500); Lymphocytes Percent Auto 11.4 % (25-40); Mean Corpuscular HGB Conc 31.8 % (30-36); Mean Corpuscular Hemoglobin 22.7 PG (26-34); Mean Corpuscular Volume 71.5 fL (80-100); Monocytes Absolute Auto 700 /uL (0-900); Monocytes Percent Auto 6.3 % (3-14); Neutrophils Absolute Auto 8800 /uL (1500-7000); Neutrophils Percent Auto 78.6 % (50-75); Platelet Count 375 X10^3/uL (150-400); Red Cell Distribution Width 18.8 % (11.6-14.8); White Blood Cell Count 11.1 X10^3/uL (4.5-11.0)
[2024-01-08 08:02] LABS: Lactate (Lactic Acid) 1.4 mmol/L (0.7-2.1)
[2024-01-08 08:04] LABS: Alanine Aminotransferase 12 IU/L (<35); Albumin 3.9 g/dL (3.5-5.0); Albumin Globulin Ratio 1.2 (1.0-2.8); Alkaline Phosphatase 87 U/L (38-126); Aspartate Aminotransferase 19 IU/L (14-36); Bilirubin Total 0.5 mg/dL (0.2-1.3); Blood Urea Nitrogen 23 mg/dL (7-17); Calcium 9.2 mg/dL (8.4-10.2); Carbon Dioxide 35 mmol/L (22-32); Chloride 98 mmol/L (98-107); Estimated Glomerular Filt Rate > 60 mL/min (>60); Globulin 3.2 g/dL (1.7-4.1); Glucose 120 mg/dL (80-110); HEMOLYSIS < 15 (0-50); Potassium 3.9 mmol/L (3.4-5.1); Sodium 140 mmol/L (137-145); Total Protein 7.1 g/dL (6.3-8.2)
[2024-01-08] MEDS: VANCOMYCIN 1,000 MG/200 ML PIGGYBACK 200 MG IV ×3 (08:17→23:11)
[2024-01-08] MEDS: ALBUTEROL/IPRATROPIUM 3 ML AMPUL INH ×5 (08:52→23:55)
[2024-01-08] MEDS: BUDESONIDE 0.5 MG/2 ML NEB INH ×2 (08:52→18:53)
[2024-01-08] MEDS: FERROUS SULFATE 325 MG TABLET PO (09:36)
[2024-01-08] MEDS: APIXABAN 5 MG TABLET PO ×2 (09:36→21:14)
[2024-01-08] MEDS: TORSEMIDE 10 MG TABLET 40 MG PO ×2 (09:36→21:14)
[2024-01-08] MEDS: SERTRALINE 50 MG TABLET 200 MG PO (09:36)
[2024-01-08] MEDS: PREGABALIN 75 MG CAPSULE PO ×2 (09:36→21:14)
[2024-01-08] MEDS: dilTIAZem CD 180 MG CAP 360 MG PO (09:36)
[2024-01-08] MEDS: POTASSIUM CHLORIDE 20 MEQ TAB PO ×2 (09:36→21:14)
[2024-01-08] MEDS: METHADONE 10 MG TABLET PO ×2 (09:37→21:14)
[2024-01-08] MEDS: INSULIN LISPRO 100 UNIT/ML 3ML VIAL SUBCUT ×3 (09:37→16:43)
[2024-01-08] MEDS: CEFEPIME 2 GM in SODIUM CHLORIDE 0.9% 100 ML IV ×2 (09:38→21:13)
[2024-01-08] MEDS: LIOTHYRONINE 5 MCG TABLET 25 MCG PO (09:59)
[2024-01-08] MEDS: MAGNESIUM CHLORIDE 64 MG TABLET PO (10:03)
--- NOTE | 2024-01-08 13:05 | PT.IIE ---
Surgical History (Last Reviewed 12/09/23 @ 07:52 by Jewel Salmeron MD) History of incision and drainage Medical History (Last Reviewed 01/07/24 @ 23:21 by Gildardo Cabrales DO) Afib Anxiety CHF (congestive heart failure) COPD (chronic obstructive pulmonary disease) Depression Diabetes Diabetic nephropathy GERD (gastroesophageal reflux disease) Hypothyroid Physical Therapy Inpatient Evaluation/Re-Eval M1 PT/OT-IP Prior Functional Status Start: 01/08/24 11:41 Freq: NEEDED Status: Active Protocol: Document 01/08/24 11:43 MB (Rec: 01/08/24 13:05 MB [id number]) Medical Review Prior Functional Status Medical History Reviewed Yes Diet/Fluid Consistency Regular Communication WNLs Mobility and Gait Transfers to power chair, adjustable bed, tub bench and commode Activities of Daily Living and IADL's I for ADLs and HH nsg for wound vac Social History Household Members none Living Arrangements Assisted Living Number of Floors (Floors) One Floor Number of Stairs To Enter/Railing? No steps Home Environment Standard Height Toilet,Walk in Shower Home Equipment Power Wheelchair/Scooter, Bedside Commode,Tub Transfer Bench,Hand Held Shower,Grab Bars Near Toilet,Grab Bars In Shower Additional Social History Comment Not working M2 PT-IP Current Condition Start: 01/08/24 11:41 Freq: NEEDED Status: Active Protocol: Document 01/08/24 11:43 MB (Rec: 01/08/24 13:05 MB [id number]) Physical Therapy Current Condition Current Condition Evaluation Date 01/08/24 Treatment Diagnosis LE cellulitis M3 PT-IP Subjective Start: 01/08/24 11:41 Freq: NEEDED Status: Active Protocol: Document 01/08/24 11:43 MB (Rec: 01/08/24 13:05 MB [id number]) Subjective Physical Therapy Visit Type Type Initial Evaluation Visit Start Time 11:43 Visit Stop Time 12:10 Number of SALVAGE ENGINEER Visits 0 Physical Therapy Visit Comments Patient Comments Pt with multiple complaints this morning and is agreeable to therapies. Therapy Pain Assessment Pain When Pain Assessed During Mobility Pain Present Pain Present Pain Reported Location Leg Intensity 8 Scale Used Ilir (Faces) M4 PT-IP Mobility and Gait Start: 01/08/24 11:41 Freq: NEEDED Status: Active Protocol: Document 01/08/24 11:43 MB (Rec: 01/08/24 13:05 MB [id number]) PT-Bed Mobility Assessment Rolling Type of Rolling Roll to Right Level of Assist Contact Guard Assistance,1 Person Assistance Supine to Sit Supine to Sit Contact Guard Assistance,1 Person Assistance,Head of Bed Elevated,Bedrails Scooting Scooting to Edge of Bed Contact Guard Assistance Scooting Up and Down in Bed Contact Guard Assistance PT-Transfer Assessment Sit to and From Stand Sit to and from Stand Minimal Assistance,1 Person Assistance,Use of Upper Extremities Equipment Transfer Assistive Device Front Wheeled Walker Orthotic/Prosthetic Devices or Brace: No Transfers Transfer Destination Bed,Bedside Commode Transfer Technique Stepping Transfer Ability Level of Assist Minimal Assistance,1 Person Assistance,Use of Upper Extremities Comments Mobility Comments PT places wound vac on bariatric RW and it does not tip walker except when pt accidentally kicks walker and then if falls forwad. Pt with increased c/o B knee pain with transfers. B LEs red, wound vac over right knee. Gait Assessment Gait Gait Assistance Required: Minimum Assistance Distance (Feet) 3 Able to Maintain Weight Bearing Status Yes During Gait Assistive Devices Assistive Device Gait Belt,Front Wheeled Walker Orthotic/Prosthetic Devices or Brace: No Gait Deviations General Gait Pattern Antalgic,Decreased Stride Length,Decreased Feet Clearance,Flexed Trunk,Step-to Gait,Wide Based Gait Factors Limiting Gait Function Factors Limiting Gait Function Decreased Activity Tolerance, Decreased Strength,Difficulty Following Directions, Incoordination,Limited Range of Motion,Pain,Poor Balance, Poor Safety Awareness Comments Gait Comments Pt tends to keep feet wide and occ with left foot outside of walker and so cues to step inside and to keep feet closer together PT-Balance Assessment Sitting Balance and Reactions Static Sitting Balance Ability Good Dynamic Sitting Balance Ability Fair Standing Balance and Reactions Static Standing Balance Ability Fair Dynamic Standing Balance Ability Fair Device Used RW M5 PT-IP Objective Assessments Start: 01/08/24 11:41 Freq: NEEDED Status: Active Protocol: Document 01/08/24 11:43 MB (Rec: 01/08/24 13:05 MB [id number]) Orientation Orientation/Cognition Level of Alertness Alert Orientation Name,Age,Birthday,Month,Date, Year,Day of Week,Place, Situation Language Function Ability No Deficits Noted Safety Awareness Decreased Safety Awareness Memory Description Short Term Impaired,Section Gang Impaired Gross Range of Motion Upper Extremity ROM Impairments Defer to OT Lower Extremity ROM Assessment Bilaterally Impaired Impairments ROM limitations ankles and knees d/t reports of pain and PT does not press on legs in order not to progress pain Strength Lower Extremity Strength Assessment Bilaterally Impaired Comments Strength Comments Functional weakness in all joints of both legs and pt does not tolerate MMT d/t c/o pain today Sensation Assessment Comments Sensation Comments Denies sensory changes Muscle Tone Muscle Tone WNL Yes M6 PT-IP Treatment Start: 01/08/24 11:41 Freq: NEEDED Status: Active Protocol: Document 01/08/24 11:43 MB (Rec: 01/08/24 13:05 [id number]) Physical Therapy Treatment Exercises Exercises Ankle Pumps Education Education Provided Safety Other Treatments Other Treatment Performed Assisting pt to [facility] with OT M7 PT-IP Assessment and Plan Start: 01/08/24 11:41 Freq: NEEDED Status: Active Protocol: Document 01/08/24 11:43 MB (Rec: 01/08/24 13:05 MB [id number]) PT Summary Assessment and Plan Potential Rehabilitation Potential Fair Status of Condition at Evaluation Evolving Summary Impairments Pain,ROM,Strength,Balance, Coordination,Cognition,Bed Mobility,Transfers,Gait, Activity Tolerance Progress Towards Goals Slow Progress due to Pain,Slow Progress due to Activity Tolerance Assessment Summary Pt is a 63 y/o female presenting back to hospital with cellulitis. Pt d/cd to SNF after last hospitalization and she states she was back to [facility] one day when nsg states she needed to come to hospital d/t LE presentation. Pt is talkative today and has many concerns and complaints. Her B knees bother her with mobility and she is agreeable to get up to [facility] and take a few steps. Pt currently requires increased assistance at d/c, SNF vs home with services at this time. Goals Bed Mobility Goal Independent Transfer Goal Independent,Front Wheeled Walker Gait Goal Independent,Front Wheel Walker Gait Distance 25 Other Goals Pt would like to toilet and so short gait goal as she was doing this at [facility] up to 70'. She has DME needs at home , she says, including bariatric RW and BSC Days to Meet Goals 10 Frequency of Treatment Frequency Of Treatment Once a Day Treatment Plan Physical Therapy Treatment Plan Bed Mobility Training,Transfer Training,Gait Training, Therapeutic Exercise,Balance Retraining,Discharge Planning, Hot or Cold Pack,Neuromuscular Re-ed,Coordination Retraining ,Manual Therapy Precautions Other Precautions Contact, wound vac right leg Weight Bearing Status Weight Bearing Status Weight Bear as Tolerated Recommendations To Nursing Amount of Assist Needed 2 Person Assist Discharge Recommendations PT Discharge Recommendations Home with Assistance,Home Health,SNF Rehab,Home vs SNF Transportation Needs at Discharge Wheelchair/Cabulance
--- NOTE | 2024-01-08 13:20 | OT.IP.EVAL ---
Past Medical History (Last Reviewed 01/08/24 @ 13:47 by Jarrod Waller DO) Afib Anxiety CHF (congestive heart failure) COPD (chronic obstructive pulmonary disease) Depression Diabetes Diabetic nephropathy GERD (gastroesophageal reflux disease) Hypothyroid Surgical History (Last Reviewed 01/08/24 @ 13:47 by Jarrod Waller DO) History of incision and drainage Occupational Therapy Inpatient Evaluation/Re-Eval M1 PT/OT-IP Prior Functional Status Start: 01/08/24 11:41 Freq: NEEDED Status: Active Protocol: Document 01/08/24 13:09 [facility] (Rec: 01/08/24 13:32 [facility] [id number]) Medical Review Prior Functional Status Medical History Reviewed Yes Diet/Fluid Consistency Regular Communication WNLs Mobility and Gait Transfers to power chair, adjustable bed, tub bench and commode Activities of Daily Living and IADL's I for ADLs and HH nsg for wound vac Social History Household Members none Living Arrangements Assisted Living Number of Floors (Floors) One Floor Number of Stairs To Enter/Railing? No steps Home Environment Standard Height Toilet,Walk in Shower Home Equipment Power Wheelchair/Scooter, Bedside Commode,Tub Transfer Bench,Hand Held Shower,Long Handled Shoe Horn,[employer],Sock Aid,Grab Bars Near Toilet, Grab Bars In Shower Additional Social History Comment Not working Pt would benefit from a barriatric BSC and FWW M2 OT-IP Current Condition Start: 01/08/24 13:08 Freq: Status: Active Protocol: Document 01/08/24 13:09 [facility] (Rec: 01/08/24 13:32 [facility] [id number]) Occupational Therapy Current Condition Current Condition Evaluation Date 01/08/24 Treatment Diagnosis RLE cellulitis Diagnosis Onset Date 01/07/24 M3 OT- IP Subjective and Pain Start: 01/08/24 13:08 Freq: Status: Active Protocol: Document 01/08/24 13:09 [facility] (Rec: 01/08/24 13:32 [facility] [id number]) OT- Subjective Occupational Therapy Visit Type Type Initial Evaluation Visit Start Time 11:40 Visit Stop Time 12:10 Occupational Therapy Visit Comments Patient Comments Pt agreed to get up and use the BSC. Patient/Caregiver Goals TO go home. OT Pain Assessment Pain When Pain Assessed During Mobility Pain Present Pain Present Pain Reported Location Leg Pain Behaviors Facial Grimacing,Moaning M4 OT- IP ADL's Start: 01/08/24 13:08 Freq: Status: Active Protocol: Document 01/08/24 13:09 [facility] (Rec: 01/08/24 13:32 [facility] [id number]) OT [id number] General Evaluation Self-Feeding Ability Independent OT ADL-Grooming Comments OT Grooming Comments Pt able to wash her face after set-up. OT ADL-Oral Care Comments Oral Care Comments NOt performed. OT ADL-Dressing General Eval Lower Body Dressing Ability Maximum Assistance Comments OT Dressing Comments Assist for socks. Pt states has all LB dressing equipment at home to use or that can call for staff to assist her. OT ADL-Toileting Comments OT Toileting Comments HARIS to transfer to the toilet . Pt will need assist for hygiene fro completeness. Pt states hs no difficulty to do at home. Noted pericare area skin dark in color and very sensitive when Purewick was taken out. OT ADL-Bathing Comments OT Bathing Comments Pt will benefit from assist at this time. M5 OT- IP IADL's Start: 01/08/24 13:08 Freq: Status: Active Protocol: Document 01/08/24 13:09 [facility] (Rec: 01/08/24 13:32 [facility] [id number]) OT-Instrumental Activities of Daily Living Deficits IADL Deficits Identified Deficits Home Safety Awareness Home Safety Comments Pt insistent sabra she can care for herself. Pt however states can call for assistance if needed. Pt may benefit from formal cognitive assessment. Meal Preparation Meal Preparation Caregiver Provides Assist Fabric Awning Repairer Fabric Awning Repairer Caregiver Provides Assist M6 OT- IP Functional Cognition Start: 01/08/24 13:08 Freq: Status: Active Protocol: Document 01/08/24 13:09 [facility] (Rec: 01/08/24 13:32 [facility] [id number]) Cognitive Factors Limiting Selfcare Function Cognitive Ability Level of Alertness Alert Patient Orientation Name,Age,Birthday,Month,Date, Year,Day of Week,Place, Situation Attention Span Ability Capable of Focused Attention, Capable of Sustained Attention Ability to Follow Commands Able to Follow One Step Commands Memory Description Short Term Impaired Cognitive Comments Cognitive Assessment Comments Pt able to follow commands for ADL and mobility needs. Pt woud benefit from formal cognitive assessment. OT- Vision and Hearing OT- Hearing Assessment OT- Hearing Assessment WFL OT- Vision Assessment Visual Acuity WFL Visual Attentiveness WFL M7 OT- IP Mobility and Balance Start: 01/08/24 13:08 Freq: Status: Active Protocol: Document 01/08/24 13:09 [facility] (Rec: 01/08/24 13:32 [facility] [id number]) OT- Bed Mobility Assessment Supine to Sit Supine to Sit Assist Contact Guard Assistance,Head of Bed Elevated OT-Transfer Assessment Sit to and From Stand Sit to and from Stand Minimal Assistance Transfers Transfer Ability Minimal Assistance Technique Transfer Destination Bed,Bedside Commode Transfer Technique Stand Step Pivot Devices Transfer Assistive Devices Gait Belt,Front Wheeled Walker Comments Mobility Comments CGA to get to the edge of the bed. HARIS to stand to the FWW and transfer to the BSC. Assist for balance and wound vac management. Pt wanting to have a bowel movement and call light placed next to the pt. OT- Balance Assessment Sitting Balance and Reactions Static Sitting Balance Ability Good Dynamic Sitting Balance Ability Fair Standing Balance and Reactions Static Standing Balance Ability Fair Dynamic Standing Balance Ability Fair M8 OT- IP Objective Assessments Start: 01/08/24 13:08 Freq: Status: Active Protocol: Document 01/08/24 13:09 [facility] (Rec: 01/08/24 13:32 [facility] [id number]) OT Gross Range of Motion Upper Extremity Range of Motion Assessment Within Functional Limits OT Strength Upper Extremity Strength Assessment Right Impaired M9 OT- IP Assessment and Plan Start: 01/08/24 13:08 Freq: Status: Active Protocol: Document 01/08/24 13:09 [facility] (Rec: 01/08/24 13:32 [facility] [id number]) OT Summary Assessment and Plan Potential Rehabilitation Potential Good Analytic Complexity at Evaluation Moderate Summary OT Impairments Pain,Strength,Balance, Functional Mobility,Grooming, Dressing,Toileting,Bathing, Toilet Transfers,Shower Transfers,Activity Tolerance Progress Towards Goals Slow Progress due to Pain,Slow Progress due to Medical Issues,Slow Progress due to Activity Tolerance Assessment Summary Pt MOD complexity and main barriers are decreased activity tolerance, balance, and now needing one person assist for ADL and mobility needs. Pt will benefit from skilled rehab versus increased assist at home and home health as pt wanting to go home. Pt would benefit from a barriatric FWW and BSC for home use. Goals Grooming Goal Independent Dressing Goal Independent,Long Handled Shoe Horn,[employer],Sock Aid Toileting Goal Minimal Assistance Bathing Goal Minimal Assistance Toilet Transfer Goal Independent Shower Transfer Goal Standby Assistance Days to Meet Goals 10 Frequency of Treatment Other frequency 5x/week Treatment Plan OT Treatment Plan ADL Training,Functional Cognition Training,Functional Mobility,Patient/Family Education,Discharge Planning Other Treatment Recommendations and Next SLUMS, standing ADL Treatment Focus Discharge Recommendations OT Discharge Recommendations SNF Rehab,Home vs SNF Other Discharge Recommendations If going home to have home health and increased assist. Home Equipment Needs bariatric FWW and BSC Transportation Needs at Discharge Private Vehicle,Wheelchair/ Cabulance
--- NOTE | 2024-01-08 13:45 | PM.HP.1 ---
History of Present Illness History of Present Illness Date Patient Seen: 01/08/24 Time Patient Seen: 08:30 Chief complaint: Leg Wound Narrative: Per overnight provider, 63 years old female with a past medical history of right lower extremity cellulitis/abscess status post drainage with wound VAC placement and recent hospitalization, diabetes, atrial fibrillation, anemia COPD and multiple other medical issues was sent in from the rehab to the emergency room due to worsening erythema with tenderness of the right lower extremity. Currently wound VAC in place and the wound care nurse was concerned the infection was getting worse. Recently had completed a course of doxycycline. No recent trauma. Denies any fever episodes. Denies any chest pain shortness of breath palpitation dizziness. Denies any nausea vomiting abdominal pain. Noted to have significant erythema in the anterior portion of the leg extending down to her ankle on the right side in the emergency room. Subsequent labs revealed a white count of 11.8 hemoglobin of 8.9. Sodium 140 with a BUN of 26 creatinine of 0.9. Blood sugar is 110. Procalcitonin is 0.087 with a lipase of 70. Emergency room discussed with general surgeon Dr. Zavaleta on-call and advised admission. Does not appear to have any active abscess at this time and not needing urgent surgical intervention. Subsequently initiated on IV Rocephin/vancomycin and admitted for further evaluation Interval history: patient reports improvement in redness and pain today. Patient had cultures done on 12/31 at Nursing facility. Results currently show pseudomonas and E. faecalis. Changed antibiotics with this information to cefepime and vancomycin. Pseudomonas does have some intermediate resistance noted to imipenem but is sens. to cefefpime. Wound vac dressing was due to be changed today per patient. [facility] Medical History Anxiety Depression CHF (congestive heart failure) COPD (chronic obstructive pulmonary disease) Diabetic nephropathy GERD (gastroesophageal reflux disease) Hypothyroid Afib Diabetes Surgical History History of incision and drainage Social History household members: none Smoking Status: Former smoker alcohol intake: never Meds Home Medications and Allergies Home Medications Medication Instructions Recorded Confirmed Type acetaminophen 500 mg tablet 1,000 mg BID PRN Pain (Scale Score 12/05/23 01/08/24 History 1-3) apixaban 5 mg tablet (Eliquis) 5 mg PO BID 12/05/23 01/08/24 History atorvastatin 40 mg tablet 40 mg PO DAILY 12/05/23 01/08/24 History benzonatate 100 mg capsule 100 mg PO DAILY PRN Cough 12/05/23 01/08/24 History digoxin 250 mcg (0.25 mg) tablet 250 mcg PO QPM 12/05/23 01/08/24 History diltiazem HCl 300 mg capsule,24 300 mg PO DAILY 12/05/23 01/08/24 History hr,extended release fluticasone propionate 50 2 spray intranasal DAILY ALLERGY 12/05/23 01/08/24 History mcg/actuation nasal spray,suspension guaifenesin 600 mg tablet, 600 mg PO BID 12/05/23 01/08/24 History extended release 12 hr insulin glargine 100 unit/mL (3 10 unit SUBCUT DAILY 12/05/23 01/08/24 History mL) subcutaneous pen (Lantus Solostar U-100 Insulin) levothyroxine 150 mcg tablet 150 mcg PO QAM 12/05/23 01/08/24 History liothyronine 25 mcg tablet 25 mcg PO QAM 12/05/23 01/08/24 History magnesium chloride 64 mg 64 mg PO DAILY 12/05/23 01/08/24 History tablet,extended release metformin 1,000 mg 24 hr 1,000 mg PO BID 12/05/23 01/08/24 History tablet,extended release (gastric reten.) omeprazole 20 mg capsule,delayed 20 mg PO DAILY 12/05/23 01/08/24 History release potassium chloride 20 mEq 20 meq PO BID 12/05/23 01/08/24 History tablet,extended release(part/cryst) pregabalin 75 mg capsule 75 mg PO BID 12/05/23 01/08/24 History sertraline 100 mg tablet 200 mg PO DAILY 12/05/23 01/08/24 History sitagliptin phosphate 50 mg tablet 50 mg PO DAILY 12/05/23 01/08/24 History (Januvia) tiotropium bromide 2.5 2 puff inhalation DAILY 12/05/23 01/08/24 History mcg/actuation mist for inhalation (Spiriva Respimat) tizanidine 4 mg tablet 4 mg PO Q6H PRN Muscle Spasm 12/05/23 01/08/24 History torsemide 20 mg tablet 40 mg PO BID 12/05/23 01/08/24 History budesonide-formoterol HFA 160 2 puff inhalation BID 12/08/23 01/08/24 History mcg-4.5 mcg/actuation aerosol inhaler (Symbicort) fluticasone 250 mcg-salmeterol 50 1 ea inhalation BID 12/08/23 01/08/24 History mcg/dose blistr powdr for inhalation ipratropium 0.5 mg-albuterol 3 mg 3 ml inhalation Q8HR 12/08/23 01/08/24 History (2.5 mg base)/3 mL nebulization soln [id number] C 250 250 tab PO DAILY 12/08/23 01/08/24 History mg-herbal no.124 8.875 mg chewable tablet (Airborne (ascorbic acid)) ferrous sulfate 325 mg (65 mg 325 mg PO DAILY #30 tabs 12/12/23 01/08/24 Rx iron) tablet methadone 10 mg tablet 10 mg PO BID #60 tabs 12/12/23 01/08/24 Rx oxycodone 10 mg tablet 10 mg PO 3XD PRN Pain (Scale Score 12/12/23 01/08/24 Rx 7-10) #90 tabs Allergies Allergy/AdvReac Type Severity Reaction Status Date / Time Sulfa (Sulfonamide Allergy Verified 12/05/23 15:46 Antibiotics) Review of Systems Review of Systems Narrative: All other systems reviewed with the patient and are negative unless otherwise stated. Exam Vital Signs (past 8 hours): - 01/08/24 08:00 01/08/24 08:00 01/08/24 08:52 Temperature 97.7 F Pulse Rate 92 H 86 Respiratory Rate 18 18 Blood Pressure 112/55 L Pulse Oximetry 98 94 Oxygen Delivery Method Room Air Room Air Oxygen Flow Rate 0 01/08/24 12:00 Temperature 99 F Pulse Rate 97 H Respiratory Rate 16 Blood Pressure 108/53 L Pulse Oximetry 94 Oxygen Delivery Method Oxygen Flow Rate Oxygen Delivery Method Room Air Oxygen Flow Rate 0 Narrative Exam Narrative: Gen: no acute distress Pulm: CTA b/l CV: RRR no m/r/g Abd: S NT ND Ext: b/l leg swelling, left venous stasis. R leg non pitting edema with erythema warmth of the lower leg / anterior calf and R wound vac in place. Objective Labs 01/08/24 07:25 01/08/24 07:25 Labs: Laboratory Results - last 24 hr 01/07/24 01/07/24 01/08/24 19:00 23:06 04:10 WBC 11.8 H 11.4 H RBC 3.98 L 3.83 L Hgb 8.9 L 8.9 L Hct 28.3 L 27.9 L MCV 71.1 L 72.8 L MCH 22.5 L 23.2 L MCHC 31.6 31.9 RDW 19.1 H 19.3 H Plt Count 411 H 393 Neut % (Auto) 77.9 H 80.5 H Lymph % (Auto) 13.3 L 9.7 L [place] % (Auto) 5.4 5.7 Eos % (Auto) 3.2 3.5 Baso % (Auto) 0.2 0.6 Neut # (Auto) 9200 H 9200 H Lymph # (Auto) 1600 1100 [place] # (Auto) 600 700 Eos # (Auto) 400 400 Baso # (Auto) 0 100 PT 16.7 H INR 1.5 H Sodium 140 138 Potassium 3.9 3.3 L Chloride 97 L 96 L Carbon Dioxide 33 H 35 H BUN 26 H 23 H Creatinine 0.94 0.91 Estimated GFR > 60 > 60 BUN/Creatinine Ratio 27.7 H 25.3 H Glucose 110 125 H Lactate 1.9 Calcium 9.4 9.0 Phosphorus 3.8 Magnesium 2.0 Total Bilirubin 0.5 AST 19 ALT 15 Alkaline Phosphatase 99 NT-Pro-B Natriuret Pep 2260 H Total Protein 7.7 Albumin 4.2 Globulin 3.5 Albumin/Globulin Ratio 1.2 Lipase 70 Procalcitonin 0.087 Nasal Screen MRSA (PCR) Detected H 01/08/24 07:25 WBC 11.1 H RBC 3.80 L Hgb 8.6 L Hct 27.2 L MCV 71.5 L MCH 22.7 L MCHC 31.8 RDW 18.8 H Plt Count 375 Neut % (Auto) 78.6 H Lymph % (Auto) 11.4 L [place] % (Auto) 6.3 Eos % (Auto) 3.3 Baso % (Auto) 0.4 Neut # (Auto) 8800 H Lymph # (Auto) 1300 [place] # (Auto) 700 Eos # (Auto) 400 Baso # (Auto) 0 PT INR Sodium 140 Potassium 3.9 Chloride 98 Carbon Dioxide 35 H BUN 23 H Creatinine 0.96 Estimated GFR > 60 BUN/Creatinine Ratio 24.0 H Glucose 120 H Lactate 1.4 Calcium 9.2 Phosphorus Magnesium Total Bilirubin 0.5 AST 19 ALT 12 Alkaline Phosphatase 87 NT-Pro-B Natriuret Pep Total Protein 7.1 Albumin 3.9 Globulin 3.2 Albumin/Globulin Ratio 1.2 Lipase Procalcitonin Nasal Screen MRSA (PCR) Assessment & Plan Assessment & Plan narrative: 1. Right lower extremity cellulitis, with recent abscess and wound vac placement. - recent cultures from nursing facility with pseudomonas and E. faecalis. Change to cefepime and vancomycin to cover these organisms. Discharge options if improving cellulitis can be linezolid and a fluroquinolone. - Continue wound vac changes, due to be changed today per patient. Try to see frequency of changes from retirement orders, though not currently on available paperwork. - follow up cultures. - if no improvement consider surgical consultation though no obvious abscess on exam and has wound vac already in place. - monitor WBC, currently 11.1 only mild elevations. 2. Type 2 diabetes with chronic insulin use - continue home lantus 10 U daily - FS ACHS - Low dose sliding scale ordered - A1c 6.9% recently 3. Chronic atrial fibrillation - continue home digoxin, diltiazem - continue home eliquis - rate controlled. 4. Hypothyroidism - continue home levothyroxine and liothyronine 150 mcg / 25 mcg respectively. 5. Chronic pain - continue home methadone 10 mg BID, oxycodone 10 mg prn for acute pain 6. Chronic lower extremity edema - continue home torsemide 40 mg BID 7. COPD without exacerbation - RT following, replace home medications with formulary nebulizer treatments. For now ordered for pulmicort, duo-neb, and as needed albuterol. 8. Obesity The patient is at much higher risk for medical and surgical complications because of their obesity. This increases the difficulty and complexity of medical and surgical interventions and increases the chances of poor outcomes such as morbidity and mortality. Code: Full, surrogate is patient's daughter DVT: on apixaban I have utilized all available immediate resources to obtain, update, or review the patient's current medications. Dispo: patient admitted under observation status. Dispo to home or possibly may need return to SNF. Will check with PT/OT evals. Additional history obtained via discussions with the case management staff and bedside RN and overnight hospitalist / admitting provider. These discussions contributed to the creation of the above assessment and plan. I have reviewed patient's presenting documentation, labs, and imaging personally. Time-Based Coding :: [TOTAL MINUTES] spent with patient and on the chart (including review of chart, obtaining history, exam, reviewing outside data, placing orders, documenting exam and treatment plan, and counseling patient) on [DATE].
--- NOTE | 2024-01-08 16:29 | CM.DANOTE ---
DCP Assessment note Pt is a 63yo F here under OBS status for cellulitis in her leg. She is a readmit, was here 12/05/23-12/12/23 and discharged to [facility]. PCP Thierry Villeda Payer [facility] and Medicaid AEROSPACE ENGINEER reviewed EMR. Per provider, final cultures/sensitivities pending but pt may be able to dc on PO abx. Potentially stable to do so tomorrow. AEROSPACE ENGINEER spoke with Hina at [facility]. confirmed she discharged home to [facility] two days ago due to ins coverage stopping due to pt not working with therapies anymore. Was discharged home with [facility] to follow. Report likely could take pt back pending ins auth. Concerns about pt's willingness to participate in therapies, need cpap adaptor, and concerns about her wound vac. Per RN, wound vac currently on pt is the [facility]. AEROSPACE ENGINEER met with pt in room. Pt reports she would want to return to [facility] if ins would auth it and if she could get someone to bring her clothes/things from home. Reports she has [facility]'s wheelchair/walker and that someone could grab that as welll. Will attempt to get grandson, daughter, or friend to bring belongings. Pt reports hx of home infusions. Pt reports [facility] lost her CPap adaptor during last admission. Pt alternative plan is to return to [facility] and resume [facility]. Pt is unsure if she could get increased care at [facility]. P: 1) dc to [facility] pending auth. will check in with RT if we could dc her with a CPAP adaptor from here? PASRR needed. 2) return to [facility] with [facility] resumption. CM team will fllow closely. ROMAN Black Discharge Planning/Care Management CM Discharge Assessment Start: 01/08/24 16:23 Freq: Status: Active Protocol: Document 01/08/24 16:27 [facility] (Rec: 01/08/24 16:29 [id number]) Discharge Planning Assessment Assigned Home Care Attendant ROMAN Benítez Advance Directives? No Advance Directives on File No History Provided By Patient,Medical Record Has Patient been admitted in last 30 Yes days? Comment 12-05-23 to 12-12-23 Prior Living Arrangements Assisted Living Household Members none Type of transporation used prior to Relies on Others admit Independent with ADL's No Is patient alert and oriented? Yes Needs Assistance With Meal Prep,Home Chores / Shopping DME Already Rented / Owned FWW / Walker Comment Bipap/CPAP Patient/Family Preference Group Home Facility Barriers to Discharge Yes Comment wound vac, ins auth, Discharge Plan Group Home Facility Transportation Arrangement likely facility van Referrals Initiated Group Home Additional Comment [facility] able to accpt, auth pending Has Agency SNF been contacted Yes Whiteboard Updated in Patient Room with Yes name and ext. # of Home Care Attendant Review Status In Process Please Provide Date Initial DC 01/08/24 Assessment Was Performed Next Review Type Continued Stay Review
[2024-01-08] MEDS: DIGOXIN 0.125 MG TABLET 0.25 MG PO (17:01)
[2024-01-08] MEDS: CARBOXYMETHYLCELLULOSE DROPS 1 DROPS EYE-BOTH (17:13)
[2024-01-08] MEDS: ATORVASTATIN 20 MG TABLET 40 MG PO (21:14)
[2024-01-08] MEDS: INSULIN GLARGINE 100 UNIT/ML 3ML PEN 10 UNIT SUBCUT (21:17)
[2024-01-08] MEDS: MELATONIN 3 MG TABLET 9 MG PO (23:39)
[2024-01-09] VITALS (34 sets, daily range): BP systolic 99–124; BP diastolic 53–68; PULSE 62–99; RESP 14–33; TEMP 36.7–37.4; O2SAT 92–97
[2024-01-09 06:35] LABS: Add Manual Diff / Slide Review NO; Basophils Absolute Auto 0 /uL (0-100); Basophils Percent Auto 0.2 % (0-2); Eosinophils Absolute Auto 500 /uL (0-450); Eosinophils Percent Auto 5.5 % (2-4); Hemoglobin 8.9 g/dL (12.0-16.0); Lymphocytes Absolute Auto 1300 /uL (1100-4500); Mean Corpuscular HGB Conc 31.8 % (30-36); Mean Corpuscular Hemoglobin 22.7 PG (26-34); Mean Corpuscular Volume 71.2 fL (80-100); Monocytes Absolute Auto 700 /uL (0-900); Monocytes Percent Auto 7.2 % (3-14); Neutrophils Absolute Auto 6600 /uL (1500-7000); Neutrophils Percent Auto 73.1 % (50-75); Platelet Count 358 X10^3/uL (150-400); Red Blood Cell Count 3.94 X10^6/uL (4.0-5.2); Red Cell Distribution Width 19.1 % (11.6-14.8)
[2024-01-09] MEDS: LEVOTHYROXINE 75 MCG TABLET 150 MCG PO (06:50)
[2024-01-09] MEDS: VANCOMYCIN TROUGH 1 REQUEST MISC (06:50)
[2024-01-09 06:52] LABS: Blood Urea Nitrogen 24 mg/dL (7-17); Calcium 8.8 mg/dL (8.4-10.2); Carbon Dioxide 32 mmol/L (22-32); Chloride 98 mmol/L (98-107); Estimated Glomerular Filt Rate > 60 mL/min (>60); Glucose 129 mg/dL (80-110); HEMOLYSIS < 15 (0-50); Magnesium 2.1 mg/dL (1.6-2.3); Potassium 3.8 mmol/L (3.4-5.1); Sodium 139 mmol/L (137-145)
[2024-01-09 07:11] LABS: Vancomycin Trough 16.7 ug/mL (10-20)
[2024-01-09] MEDS: VANCOMYCIN 1,000 MG/200 ML PIGGYBACK 200 MG IV (07:26)
[2024-01-09] MEDS: SERTRALINE 50 MG TABLET 200 MG PO (09:34)
[2024-01-09] MEDS: FERROUS SULFATE 325 MG TABLET PO (09:34)
[2024-01-09] MEDS: dilTIAZem CD 180 MG CAP 360 MG PO (09:34)
[2024-01-09] MEDS: TORSEMIDE 10 MG TABLET 40 MG PO ×2 (09:34→15:09)
[2024-01-09] MEDS: PREGABALIN 75 MG CAPSULE PO ×2 (09:35→20:58)
[2024-01-09] MEDS: MAGNESIUM CHLORIDE 64 MG TABLET PO (09:35)
[2024-01-09] MEDS: POTASSIUM CHLORIDE 20 MEQ TAB PO ×2 (09:35→20:59)
[2024-01-09] MEDS: METHADONE 10 MG TABLET PO ×2 (09:35→20:59)
[2024-01-09] MEDS: LIOTHYRONINE 5 MCG TABLET 25 MCG PO (09:35)
[2024-01-09] MEDS: APIXABAN 5 MG TABLET PO ×2 (09:35→20:59)
[2024-01-09] MEDS: CEFEPIME 2 GM in SODIUM CHLORIDE 0.9% 100 ML IV ×2 (09:36→21:01)
[2024-01-09] MEDS: ALBUTEROL/IPRATROPIUM 3 ML AMPUL INH ×3 (11:00→19:31)
[2024-01-09] MEDS: BUDESONIDE 0.5 MG/2 ML NEB INH ×2 (11:00→19:31)
[2024-01-09] MEDS: CARBOXYMETHYLCELLULOSE DROPS 1 DROPS EYE-BOTH (12:25)
[2024-01-09] MEDS: INSULIN LISPRO 100 UNIT/ML 3ML VIAL SUBCUT ×3 (12:25→20:56)
--- NOTE | 2024-01-09 12:43 | PM.PN.1 ---
Subjective Subjective Date Patient Seen: 01/09/24 Time Patient Seen: 08:35 Interval history: 63 years old female with a past medical history of right lower extremity cellulitis/abscess status post drainage with wound VAC placement and recent hospitalization, diabetes, atrial fibrillation, anemia COPD and multiple other medical issues was sent in from the rehab to the emergency room due to worsening erythema with tenderness of the right lower extremity. Currently wound VAC in place and the wound care nurse was concerned the infection was getting worse. Recently had completed a course of doxycycline. No recent trauma. Denies any fever episodes. Denies any chest pain shortness of breath palpitation dizziness. Denies any nausea vomiting abdominal pain. Noted to have significant erythema in the anterior portion of the leg extending down to her ankle on the right side in the emergency room. Subsequent labs revealed a white count of 11.8 hemoglobin of 8.9. Sodium 140 with a BUN of 26 creatinine of 0.9. Blood sugar is 110. Procalcitonin is 0.087 with a lipase of 70. Emergency room discussed with general surgeon Dr. Zavaleta on-call and advised admission. Does not appear to have any active abscess at this time and not needing urgent surgical intervention. Subsequently initiated on IV Rocephin/vancomycin and admitted for further evaluation Interval history: patient reports improvement in redness and pain today. Patient had cultures done on 12/31 at Nursing facility. Results currently show pseudomonas sensitive to Cipro and E. faecalis sensitive to linezolid. Currently on cefepime and vancomycin while in the hospital with plans to transition to ciprofloxacin and linezolid orally at discharge. Exam Vital Signs (past 8 hours): - 01/09/24 07:00 01/09/24 08:45 01/09/24 11:00 Temperature 98.2 F Pulse Rate 78 92 H Respiratory Rate 33 H 19 Blood Pressure 99/53 L Pulse Oximetry 95 97 Oxygen Delivery Method CPAP Room Air Oxygen Flow Rate 0 Fraction of Inspired Oxygen 21 SaO2/FiO2 Ratio 447 Oxygen Delivery Method Room Air Oxygen Flow Rate 0 Narrative Exam Narrative: Gen: no acute distress Pulm: CTA b/l CV: RRR no m/r/g Abd: S NT ND Ext: b/l leg swelling, left venous stasis. R leg non pitting edema with erythema warmth of the lower leg / anterior calf and R wound vac in place. Wound dimensions 19.5 cm long, 4 cm wide, and 3 cm depth. Objective Labs 01/09/24 06:29 01/09/24 06:29 Labs: Laboratory Results - last 24 hr 01/09/24 06:29 WBC 9.0 RBC 3.94 L Hgb 8.9 L Hct 28.0 L MCV 71.2 L MCH 22.7 L MCHC 31.8 RDW 19.1 H Plt Count 358 Neut % (Auto) 73.1 Lymph % (Auto) 14.0 L [place] % (Auto) 7.2 Eos % (Auto) 5.5 H Baso % (Auto) 0.2 Neut # (Auto) 6600 Lymph # (Auto) 1300 [place] # (Auto) 700 Eos # (Auto) 500 H Baso # (Auto) 0 Sodium 139 Potassium 3.8 Chloride 98 Carbon Dioxide 32 BUN 24 H Creatinine 0.80 Estimated GFR > 60 BUN/Creatinine Ratio 30.0 H Glucose 129 H Calcium 8.8 Magnesium 2.1 Vancomycin Trough 16.7 PFSH Medical History Anxiety Depression CHF (congestive heart failure) COPD (chronic obstructive pulmonary disease) Diabetic nephropathy GERD (gastroesophageal reflux disease) Hypothyroid Afib Diabetes Surgical History History of incision and drainage Social History household members: none Smoking Status: Former smoker alcohol intake: never Assessment & Plan Assessment & Plan narrative: 1. Right lower extremity cellulitis, with recent abscess and wound vac placement. - recent cultures from nursing facility with pseudomonas and E. faecalis. Change to cefepime and vancomycin to cover these organisms. Given improving cellulitis plan to change to linezolid and ciprofloxacin. - Continue wound vac changes, due to be changed today per patient. - follow up cultures. - surgical consultation for wound vac recommendations. - monitor WBC, 11.1 and down to 9.0 today 2. Type 2 diabetes with chronic insulin use - continue home lantus 10 U daily - FS ACHS, well-controlled at this point - Low dose sliding scale ordered - A1c 6.9% recently 3. Chronic atrial fibrillation - continue home digoxin, diltiazem - continue home eliquis - rate controlled. 4. Hypothyroidism - continue home levothyroxine and liothyronine 150 mcg / 25 mcg respectively. 5. Chronic pain - continue home methadone 10 mg BID, oxycodone 10 mg prn for acute pain 6. Chronic lower extremity edema - continue home torsemide 40 mg BID 7. COPD without exacerbation - RT following, replace home medications with formulary nebulizer treatments. For now ordered for pulmicort, duo-neb, and as needed albuterol. 8. Obesity The patient is at much higher risk for medical and surgical complications because of their obesity. This increases the difficulty and complexity of medical and surgical interventions and increases the chances of poor outcomes such as morbidity and mortality. Code: Full, surrogate is patient's daughter DVT: on apixaban I have utilized all available immediate resources to obtain, update, or review the patient's current medications. Dispo: patient admitted under observation status. Dispo to home or possibly may need return to SNF. Plan PT/OT evals. Additional history obtained via discussions with the case management staff and bedside RN and overnight hospitalist / admitting provider. These discussions contributed to the creation of the above assessment and plan. I have reviewed patient's presenting documentation, labs, and imaging personally. Time-Based Coding :: [TOTAL MINUTES] spent with patient and on the chart (including review of chart, obtaining history, exam, reviewing outside data, placing orders, documenting exam and treatment plan, and counseling patient) on [DATE]. PROFEE Charge codes Subsequent inpatient/observation care: [id number]
[2024-01-09] MEDS: OXYCODONE IR 10 MG TABLET PO ×2 (14:01→20:59)
--- NOTE | 2024-01-09 14:19 | OT.IPNOTE ---
Per nurse, pt is upset as now plans have changed for pt to go to skilled rehab. Nursing suggested not to see pt at this time.
--- NOTE | 2024-01-09 16:00 | PT.IPTN ---
Physical Therapy Treatment Note M2 PT-IP Current Condition Start: 01/08/24 11:41 Freq: NEEDED Status: Active Protocol: Document 01/08/24 11:43 MB (Rec: 01/08/24 13:05 MB [id number]) Physical Therapy Current Condition Current Condition Evaluation Date 01/08/24 Treatment Diagnosis LE cellulitis M3 PT-IP Subjective Start: 01/08/24 11:41 Freq: NEEDED Status: Active Protocol: Document 01/09/24 16:52 TS (Rec: 01/09/24 17:02 TS [id number]) Subjective Physical Therapy Visit Type Type Treatment Note Visit Start Time 16:00 Visit Stop Time 16:48 Number of MINE TECHNICIAN Visits 1 Physical Therapy Visit Comments Patient Comments Pt found resting in bed, reports a frustrating day, she is agreeable to PT. Therapy Pain Assessment Pain When Pain Assessed During Mobility Pain Present Pain Present Pain Reported M4 PT-IP Mobility and Gait Start: 01/08/24 11:41 Freq: NEEDED Status: Active Protocol: Document 01/09/24 16:52 TS (Rec: 01/09/24 17:02 TS [id number]) PT-Bed Mobility Assessment Rolling Type of Rolling Roll to Right Level of Assist Standby Assistance Supine to Sit Supine to Sit Standby Assistance,Head of Bed Elevated Sit to Supine Sit to Supine Minimal Assistance,1 Person Assistance Scooting Scooting to Edge of Bed Standby Assistance PT-Transfer Assessment Sit to and From Stand Sit to and from Stand Minimal Assistance Equipment Transfer Assistive Device Gait Belt,Front Wheeled Walker Orthotic/Prosthetic Devices or Brace: No Comments Mobility Comments Supine to sit SBA with HOB elevated, pt is slow to sit up and uses momentum. STS with FWW Ever, pt leans heavily on FWW to stand. She ambulated to toilet, performed her own pericare. She ambulated ~50' in room CGA/SBA, pt requires multiple standing rest breaks and reports pain in LE's. She requested back to bed due to fatigue. Sit to supine Ever for LE's into bed. Pt was left in bed, all needs met. Gait Assessment Gait Gait Assistance Required: Standby Assistance,Contact Guard Assist Distance (Feet) 50 Able to Maintain Weight Bearing Status Yes During Gait Assistive Devices Assistive Device Gait Belt,Front Wheeled Walker Orthotic/Prosthetic Devices or Brace: No Gait Deviations General Gait Pattern Antalgic,Decreased Stride Length,Decreased Feet Clearance,Flexed Trunk,Step-to Gait,Wide Based Gait Factors Limiting Gait Function Factors Limiting Gait Function Decreased Activity Tolerance, Decreased Strength,Difficulty Following Directions, Incoordination,Limited Range of Motion,Pain,Poor Balance, Poor Safety Awareness Comments Gait Comments See mobility comments PT-Balance Assessment Sitting Balance and Reactions Static Sitting Balance Ability Good Dynamic Sitting Balance Ability Fair Standing Balance and Reactions Static Standing Balance Ability Fair Dynamic Standing Balance Ability Fair Device Used FWW M5 PT-IP Objective Assessments Start: 01/08/24 11:41 Freq: NEEDED Status: Active Protocol: Document 01/08/24 11:43 MB (Rec: 01/08/24 13:05 MB [id number]) Orientation Orientation/Cognition Level of Alertness Alert Orientation Name,Age,Birthday,Month,Date, Year,Day of Week,Place, Situation Language Function Ability No Deficits Noted Safety Awareness Decreased Safety Awareness Memory Description Short Term Impaired,Furniture Crater Impaired Gross Range of Motion Upper Extremity ROM Impairments Defer to OT Lower Extremity ROM Assessment Bilaterally Impaired Impairments ROM limitations ankles and knees d/t reports of pain and PT does not press on legs in order not to progress pain Strength Lower Extremity Strength Assessment Bilaterally Impaired Comments Strength Comments Functional weakness in all joints of both legs and pt does not tolerate MMT d/t c/o pain today Sensation Assessment Comments Sensation Comments Denies sensory changes Muscle Tone Muscle Tone WNL Yes M6 PT-IP Treatment Start: 01/08/24 11:41 Freq: NEEDED Status: Active Protocol: Document 01/09/24 16:52 TS (Rec: 01/09/24 17:02 [id number]) Physical Therapy Treatment Education Education Provided Safety M7 PT-IP Assessment and Plan Start: 01/08/24 11:41 Freq: NEEDED Status: Active Protocol: Document 01/09/24 16:52 TS (Rec: 01/09/24 17:02 [id number]) PT Summary Assessment and Plan Potential Rehabilitation Potential Fair Summary Impairments Pain,ROM,Strength,Balance, Coordination,Cognition,Bed Mobility,Transfers,Gait, Activity Tolerance Progress Towards Goals Slow Progress due to Pain,Slow Progress due to Activity Tolerance Assessment Summary Ayaka made some progress with her mobility but continues to be limited by poor activity tolerance and pain. She performs bed mobility SBA/Ever for LE's. She progressed her gait to ~50'SBA/CGA with FWW. She requires multiple standing rest breaks due to pain and fatigue in LE's. PT is recommending SNF at this time to rpgoress strength and activity tolerance. Goals Bed Mobility Goal Independent Transfer Goal Independent,Front Wheeled Walker Gait Goal Independent,Front Wheel Walker Gait Distance 25 Other Goals Pt would like to toilet and so short gait goal as she was doing this at [facility] up to 70'. She has DME needs at home , she says, including bariatric RW and BSC Days to Meet Goals 10 Frequency of Treatment Frequency Of Treatment Once a Day Treatment Plan Physical Therapy Treatment Plan Bed Mobility Training,Transfer Training,Gait Training, Therapeutic Exercise,Balance Retraining,Discharge Planning, Hot or Cold Pack,Neuromuscular Re-ed,Coordination Retraining ,Manual Therapy Precautions Other Precautions Contact, wound vac right leg Weight Bearing Status Weight Bearing Status Weight Bear as Tolerated Recommendations To Nursing Amount of Assist Needed 2 Person Assist Discharge Recommendations PT Discharge Recommendations SNF Rehab Transportation Needs at Discharge Wheelchair/Cabulance
--- NOTE | 2024-01-09 16:17 | CM.DPNOTE ---
DCP note SOLE TIER reviewed EMR. Per hospitalist, plan remains for pt to dc on oral antibiotics. Stable to dc whenever Per Hina at , got [facility] auth for SNF for 4 days. Per Hina, [facility] bed and [facility] transport available for transport Friday. Per Giorgi at [facility], pt only has been auth'd for a wound vac from . Per Olivia at [facility] , able to resume care for pt. Would appreciate an update if pt discharges to [facility] instead of home. Would just need new orders if pt were to dc home to [place]. Per Dr. Burnett who kindly agreed to look at wound, pt wound vac looks good, no changes needed at this time. Per Staci, community director, at [facility], able to take pt back if needed. Would need abx/med change scripts ahead of time. email [email or web address] . Per Staci, pt has OP wound care appt scheduled here with Friday. SOLE TIER met with pt multiple times throughout the day. Pt in agreement to return to [facility]. Reports she has no one that could bring her belongings or her trilogy machine from home to [facility] over the next few days. Will attempt to get family or friend again to bring over trilogy equip SOLE TIER spoke with Olivia from [employer], agency for her trilogy. (p [phone]). Olivia reports that they do not have the necessary adaptor in stock at this time and won't until Friday. P: hopeful for DC tomorrow to [facility] pending resolving issue with trilogy/adaptor. Transport time pending. PASRR needed. If DC to [facility], update Staci at [facility] and olivia at [facility]. CM team will continue to fllow closely. ROMAN Black
--- NOTE | 2024-01-09 16:30 | PM.PN.1 ---
Subjective Subjective Date Patient Seen: 01/09/24 Time Patient Seen: 13:00 Interval history: Readmitted for possible cellulitis. RL extremity injury with wound vac in place. Due to be changed today. Arrangements made for change tomorrow at her SNF. Exam Vital Signs (past 8 hours): - 01/09/24 08:45 01/09/24 09:00 01/09/24 09:30 Temperature 98.2 F Pulse Rate 78 69 77 Respiratory Rate 33 H 14 21 Blood Pressure 99/53 L Pulse Oximetry 95 Oxygen Delivery Method Oxygen Flow Rate 0 01/09/24 10:00 01/09/24 10:30 01/09/24 11:00 Temperature Pulse Rate 94 H 84 92 H Respiratory Rate 22 19 19 Blood Pressure Pulse Oximetry 97 Oxygen Delivery Method Room Air Oxygen Flow Rate 01/09/24 11:00 01/09/24 11:30 01/09/24 12:00 Temperature Pulse Rate 80 82 79 Respiratory Rate 22 21 23 Blood Pressure Pulse Oximetry Oxygen Delivery Method Oxygen Flow Rate 01/09/24 12:28 01/09/24 12:28 01/09/24 12:30 Temperature Pulse Rate 81 86 Respiratory Rate 16 21 Blood Pressure 107/68 Pulse Oximetry 92 Oxygen Delivery Method Oxygen Flow Rate Fraction of Inspired Oxygen 21 SaO2/FiO2 Ratio 447 Oxygen Delivery Method Room Air Oxygen Flow Rate 0 Narrative Exam Narrative: Highly emotional patient, difficult to complete an explaination or education w/o interruption. Focused on wound culture showing MRSA. That culture along with the nares culture likely represent chronic exposure/colonization and not active infection. Bilateral lymphedema, weight and venous stasus disease play a large roll in slow healing of wound. Wound vac in place and functioning. Skin changes from venous stasus disease, no abscess. Mild blushing of skin that has responded to antibiotics. Objective Labs 01/09/24 06:29 01/09/24 06:29 Labs: Laboratory Results - last 24 hr 01/09/24 06:29 WBC 9.0 RBC 3.94 L Hgb 8.9 L Hct 28.0 L MCV 71.2 L MCH 22.7 L MCHC 31.8 RDW 19.1 H Plt Count 358 Neut % (Auto) 73.1 Lymph % (Auto) 14.0 L [place] % (Auto) 7.2 Eos % (Auto) 5.5 H Baso % (Auto) 0.2 Neut # (Auto) 6600 Lymph # (Auto) 1300 [place] # (Auto) 700 Eos # (Auto) 500 H Baso # (Auto) 0 Sodium 139 Potassium 3.8 Chloride 98 Carbon Dioxide 32 BUN 24 H Creatinine 0.80 Estimated GFR > 60 BUN/Creatinine Ratio 30.0 H Glucose 129 H Calcium 8.8 Magnesium 2.1 Vancomycin Trough 16.7 PFSH Medical History Anxiety Depression CHF (congestive heart failure) COPD (chronic obstructive pulmonary disease) Diabetic nephropathy GERD (gastroesophageal reflux disease) Hypothyroid Afib Diabetes Surgical History History of incision and drainage Social History household members: none Smoking Status: Former smoker alcohol intake: never Assessment & Plan Assessment & Plan narrative: Agree with Dr. Eason. Switch to oral antibiotics, understand MRSA as a colonizing bacteria. Continue current wound care at her SNF tomorrow. Wound vac is adequate for 1-3 days longer if needed. Consider compression of RLE to facilitate healing. Nutrition is already being addressed. Time-Based Coding :: [TOTAL MINUTES] spent with patient and on the chart (including review of chart, obtaining history, exam, reviewing outside data, placing orders, documenting exam and treatment plan, and counseling patient) on [DATE].
[2024-01-09] MEDS: DIGOXIN 0.125 MG TABLET 0.25 MG PO (16:47)
[2024-01-09] MEDS: VANCOMYCIN 1,500 MG/300 ML PIGGYBACK 200 MG IV (18:18)
--- NOTE | 2024-01-09 18:41 | PC.NURSE ---
pt spoke w/ Dr Eason and otilio jarrett today; she is scheduled for discharge to [facility] tomorrow; Dr Burnett came to see the pt and as pt does not need surgical intervention, wound vac to stay until her appt Friday; wound vac cannister changed; pt was tearful and emotionally labile earlier when dealing with placement and on the phone w/ insurance provider; she is calm and pleasant this evening; she did get up with OT and had a BM
[2024-01-09] MEDS: INSULIN GLARGINE 100 UNIT/ML 3ML PEN 10 UNIT SUBCUT (20:55)
[2024-01-09] MEDS: SODIUM CHLORIDE 0.9% FLUSH 10 ML IV (20:57)
[2024-01-09] MEDS: ATORVASTATIN 20 MG TABLET 40 MG PO (20:58)
[2024-01-09] MEDS: MELATONIN 3 MG TABLET 9 MG PO (20:58)
[2024-01-10 00:50] VITALS: BP 99/52; PULSE 76; RESP 18; O2SAT 95
[2024-01-10 04:22] VITALS: BP 105/56; PULSE 65; RESP 16; TEMP 36.6; O2SAT 96
[2024-01-10 04:45] LABS: Add Manual Diff / Slide Review NO; Basophils Absolute Auto 300 /uL (0-100); Basophils Percent Auto 2.8 % (0-2); Eosinophils Absolute Auto 500 /uL (0-450); Eosinophils Percent Auto 4.9 % (2-4); Hemoglobin 8.8 g/dL (12.0-16.0); Lymphocytes Absolute Auto 1100 /uL (1100-4500); Lymphocytes Percent Auto 11.7 % (25-40); Mean Corpuscular HGB Conc 32.4 % (30-36); Mean Corpuscular Hemoglobin 23.1 PG (26-34); Mean Corpuscular Volume 71.3 fL (80-100); Monocytes Absolute Auto 600 /uL (0-900); Neutrophils Absolute Auto 7000 /uL (1500-7000); Neutrophils Percent Auto 74.6 % (50-75); Platelet Count 379 X10^3/uL (150-400); Red Blood Cell Count 3.78 X10^6/uL (4.0-5.2); White Blood Cell Count 9.4 X10^3/uL (4.5-11.0)
[2024-01-10 05:32] LABS: BUN Creatinine Ratio 27.8 (6-22); Blood Urea Nitrogen 25 mg/dL (7-17); Calcium 8.8 mg/dL (8.4-10.2); Carbon Dioxide 30 mmol/L (22-32); Chloride 99 mmol/L (98-107); Estimated Glomerular Filt Rate > 60 mL/min (>60); Glucose 132 mg/dL (80-110); HEMOLYSIS < 15 (0-50); Magnesium 2.1 mg/dL (1.6-2.3); Potassium 3.5 mmol/L (3.4-5.1); Sodium 139 mmol/L (137-145)
[2024-01-10] MEDS: VANCOMYCIN 1,500 MG/300 ML PIGGYBACK 200 MG IV (06:25)
[2024-01-10] MEDS: OXYCODONE IR 10 MG TABLET PO (06:26)
[2024-01-10] MEDS: TORSEMIDE 10 MG TABLET 40 MG PO (06:26)
[2024-01-10] MEDS: LEVOTHYROXINE 75 MCG TABLET 150 MCG PO (06:28)
[2024-01-10] MEDS: CARBOXYMETHYLCELLULOSE DROPS 1 DROPS EYE-BOTH (07:40)
[2024-01-10 07:51] VITALS: PULSE 80; RESP 18; O2SAT 94
[2024-01-10] MEDS: BUDESONIDE 0.5 MG/2 ML NEB INH (07:51)
[2024-01-10] MEDS: ALBUTEROL/IPRATROPIUM 3 ML AMPUL INH ×2 (07:51→11:09)
[2024-01-10] MEDS: INSULIN LISPRO 100 UNIT/ML 3ML VIAL SUBCUT ×2 (07:56→11:44)
[2024-01-10] MEDS: CEFEPIME 2 GM in SODIUM CHLORIDE 0.9% 100 ML IV (08:44)
[2024-01-10] MEDS: LIOTHYRONINE 5 MCG TABLET 25 MCG PO (08:45)
[2024-01-10] MEDS: POTASSIUM CHLORIDE 20 MEQ TAB PO (08:45)
[2024-01-10] MEDS: MAGNESIUM CHLORIDE 64 MG TABLET PO (08:45)
[2024-01-10] MEDS: dilTIAZem CD 180 MG CAP 360 MG PO (08:46)
[2024-01-10] MEDS: SERTRALINE 50 MG TABLET 200 MG PO (08:46)
[2024-01-10] MEDS: METHADONE 10 MG TABLET PO (08:46)
[2024-01-10] MEDS: FERROUS SULFATE 325 MG TABLET PO (08:46)
[2024-01-10] MEDS: APIXABAN 5 MG TABLET PO (08:46)
[2024-01-10] MEDS: NYSTATIN POWDER 15GM 1 APPLIC TOP (08:48)
[2024-01-10] MEDS: PREGABALIN 75 MG CAPSULE PO (08:48)
--- NOTE | 2024-01-10 09:24 | PM.DS.1 ---
History of Present Illness History of Present Illness Date Patient Seen: 01/10/24 Time Patient Seen: 07:35 Date of Onset of Symptoms: 01/08/24 Chief complaint: Leg Wound Narrative: 63 years old female with a past medical history of right lower extremity cellulitis/abscess status post drainage with wound VAC placement and recent hospitalization, diabetes, atrial fibrillation, anemia COPD and multiple other medical issues was sent in from the rehab to the emergency room due to worsening erythema with tenderness of the right lower extremity. Currently wound VAC in place and the wound care nurse was concerned the infection was getting worse. Recently had completed a course of doxycycline. No recent trauma. Denies any fever episodes. Denies any chest pain shortness of breath palpitation dizziness. Denies any nausea vomiting abdominal pain. Noted to have significant erythema in the anterior portion of the leg extending down to her ankle on the right side in the emergency room. Subsequent labs revealed a white count of 11.8 hemoglobin of 8.9. Sodium 140 with a BUN of 26 creatinine of 0.9. Blood sugar is 110. Procalcitonin is 0.087 with a lipase of 70. Emergency room discussed with general surgeon Dr. Zavaleta on-call and advised admission. Does not appear to have any active abscess at this time and not needing urgent surgical intervention. Subsequently initiated on IV Rocephin/vancomycin and admitted for further evaluation Interval history: patient reports improvement in redness and pain today. Patient had cultures done on 12/31 at Nursing facility. Results currently show pseudomonas and E. faecalis. Changed antibiotics with this information to cefepime and vancomycin. Pseudomonas does have some intermediate resistance noted to imipenem but is sens. to cefefpime. Wound vac dressing was due to be changed today per patient. Discharge Providers Provider Date of admission: 01/07/24 21:26 Discharge Date: 01/10/24 Primary care physician: Thierry Villeda MD Consults: 01/07/24 20:37 Consult to General Surgery Stat Comment: Consulting Provider: Tejas Zavaleta Reason for consultation: cellulitis hx of abscess Has provider been notified: Yes 01/08/24 10:40 Consult to Physical Therapy Evaluate & Treat Comment: Physician Instructions: Evaluate and Treat 01/08/24 10:41 Consult to Occupational Therapy Evaluate & Treat Comment: Physician Instructions: Evaluate and treat Discharge provider: Eze Eason MD Summary Hospital Course Discharge Diagnosis: 1. Right lower extremity cellulitis, with recent abscess and wound VAC placement 2. Type 2 diabetes mellitus with chronic insulin use 3. Chronic atrial fibrillation 4. Hypothyroidism 5. Chronic pain syndrome 6. Chronic lower extremity edema 7. COPD without exacerbation 8. Congestive heart failure 9. Obesity 10. Tinea cruris Hospital Course: The patient was admitted and restarted on vancomycin and cefepime to cover Enterococcus faecalis and Pseudomonas based on 01/01/2024 cultures from nursing facility. The wound VAC was kept in place and surgery consulted, recommending outpatient wound clinic follow-up for wound VAC changes. Her other medical issues remained stable during the hospitalization. Her trilogy device required an adapter, therefore at discharge oxygen supplementations to be provided until this adapter can be obtained and provided. The patient's cellulitis. Stabilized to improve during her hospitalization. Repeat cultures on this hospitalization showed no growth at time of discharge. no other issues arose. Arrangements were made for discharge back to intermediate for ongoing rehabilitation care needs. Status at Discharge Cognitive/behavioral status at discharge: oriented Functional status at discharge: uses cane/walker Overall status at discharge: patient is not back to baseline Time Spent with Patient Time spent: Greater than 30 minutes Exam Vital Signs (past 8 hours): - 01/10/24 04:22 01/10/24 07:51 Temperature 97.8 F Pulse Rate 65 80 Respiratory Rate 16 18 Blood Pressure 105/56 L Pulse Oximetry 96 94 Oxygen Delivery Method Room Air Oxygen Flow Rate 0 0 Fraction of Inspired Oxygen 21 Fraction of Inspired Oxygen 21 SaO2/FiO2 Ratio 447 Oxygen Delivery Method Room Air Oxygen Flow Rate 0 Narrative Exam Narrative: Gen: no acute distress Pulm: CTA b/l CV: RRR no m/r/g Abd: S NT ND Ext: b/l leg swelling, left venous stasis. R leg non pitting edema with erythema warmth of the lower leg / anterior calf and R wound vac in place. Wound dimensions 19.5 cm long, 4 cm wide, and 3 cm depth. Objective Labs 01/10/24 04:06 01/10/24 04:06 Labs: Laboratory Results - last 24 hr 01/10/24 04:06 WBC 9.4 RBC 3.78 L Hgb 8.8 L Hct 27.0 L MCV 71.3 L MCH 23.1 L MCHC 32.4 RDW 19.0 H Plt Count 379 Neut % (Auto) 74.6 Lymph % (Auto) 11.7 L Carlton % (Auto) 6.0 Eos % (Auto) 4.9 H Baso % (Auto) 2.8 H Neut # (Auto) 7000 Lymph # (Auto) 1100 Carlton # (Auto) 600 Eos # (Auto) 500 H Baso # (Auto) 300 H Sodium 139 Potassium 3.5 Chloride 99 Carbon Dioxide 30 BUN 25 H Creatinine 0.90 Estimated GFR > 60 BUN/Creatinine Ratio 27.8 H Glucose 132 H Calcium 8.8 Magnesium 2.1 PFSH Medical History Anxiety Depression CHF (congestive heart failure) COPD (chronic obstructive pulmonary disease) Diabetic nephropathy GERD (gastroesophageal reflux disease) Hypothyroid Afib Diabetes Surgical History History of incision and drainage Social History household members: none Smoking Status: Former smoker alcohol intake: never Discharge Plan Discharge Plan Patient Disposition: SNF Transfer to: [facility] Other facility: Wound vac management per wound care clinic, continue same settings Transportation: Wheelchair Consult as needed: Dental, Hearing, Mental health, Podiatry and Vision Provider Discharge Comment: Titrate O2 to SaO2 >= 92% until Trilogy adapter in place I certify the postop hospital intermediate care is medically necessary on a continuing basis for any conditions for which he/ she received care during this hospitalization.: Yes The receiving facility has agreed to accept transfer and provide medical treatment.: Yes Discharge orders & Medications Prescriptions: New acetaminophen 325 mg Tablet 650 mg PO Q6H PRN (Reason: Fever/Mild Pain (1-3)) Qty: 30 0RF vancomycin-diluent combo no.1 1.5 gram/300 mL Piggyback 1,500 mg IV Q12H 10 Days Qty: 1800 0RF cefepime 2 gram Recon Soln 2 g IV Q12H 10 Days Qty: 20 0RF nystatin 100,000 unit/gram powder 1 applic topical TID 10 Days Qty: 30 0RF Continued atorvastatin 40 mg tablet 40 mg PO DAILY digoxin 250 mcg (0.25 mg) tablet 250 mcg PO QPM diltiazem HCl 300 mg capsule,extended release 24 hr 300 mg PO DAILY Eliquis 5 mg tablet 5 mg PO BID fluticasone propionate 50 mcg/actuation spray,suspension 2 spray intranasal DAILY insulin glargine [Lantus Solostar U-100 Insulin] 100 unit/mL (3 mL) insulin pen 10 unit SUBCUT DAILY Patient Comments: [NO ORIGINAL SIG] guaifenesin 600 mg Tablet Extended Release 12hr 600 mg PO BID Januvia 50 mg tablet 50 mg PO DAILY levothyroxine 150 mcg tablet 150 mcg PO QAM liothyronine 25 mcg tablet 25 mcg PO QAM magnesium chloride 64 mg Tablet Extended Release 64 mg PO DAILY metformin 1,000 mg tablet,ER douglas.retention 24 hr 1,000 mg PO BID omeprazole 20 mg capsule,delayed release(DR/EC) 20 mg PO DAILY potassium chloride 20 mEq tablet,ER particles/crystals 20 meq PO BID sertraline 100 mg tablet 200 mg PO DAILY Spiriva Respimat 2.5 mcg/actuation mist 2 puff inhalation DAILY torsemide 20 mg tablet 40 mg PO BID Rx Instructions: takes it at noon acetaminophen 500 mg Tablet 1,000 mg BID PRN (Reason: Pain (Scale Score 1-3)) benzonatate 100 mg Capsule 100 mg PO DAILY PRN (Reason: Cough) tizanidine 4 mg tablet 4 mg PO Q6H PRN (Reason: Muscle Spasm) Airborne (ascorbic acid) 250-8.875 mg Tablet,Chewable 250 tab PO DAILY budesonide-formoterol [Symbicort] 160-4.5 mcg/actuation HFA aerosol inhaler 2 puff inhalation BID fluticasone propion-salmeterol 250-50 mcg/dose blister with device 1 ea inhalation BID ipratropium-albuterol 0.5 mg-3 mg(2.5 mg base)/3 mL Solution For Nebulization 3 ml INHALATION Q8HR ferrous sulfate 325 mg (65 mg iron) tablet 325 mg PO DAILY Qty: 30 0RF methadone 10 mg tablet 10 mg PO BID Qty: 60 0RF pregabalin 75 mg capsule 75 mg PO BID Qty: 60 0RF oxycodone 10 mg tablet 10 mg PO 3XD PRN (Reason: Pain (Scale Score 7-10)) Qty: 90 0RF Follow up/Referrals: Thierry Villeda MD [Primary Care Provider] - Skin/Wound/Dressing Care Report to your healthcare provider any signs of infection, such as:: chills, fever, night sweats, increased pain, unusual drainage and unusual redness Special Rehabilitation Services Rehab type: Physical therapy and Occupational therapy Visit Report/Discharge Packet Stand Alone Forms: Patient Portal/API Discharge Data Primary Care Provider: Tiherry Villeda Attending Provider: Wade Boyer Admit Date/Time: 01/07/24 21:26 Quality MIPS - Admit I confirm the patient?s Advance Care Plan is present, Code status is documented, Surrogate decision maker is in patient?s record [If Yes, STOP here]: Yes MIPS - Meds 'Current medications' to include all prescriptions, [id number] products, herbals, cannabis/cannabidiol products, and vitamin/mineral/dietary (nutritional) supplements. I have utilized all available resources to obtain, update, or review the patient?s current medications. [If Yes, STOP here]: Yes MIPS - DC The patient has a history of heart transplant or Left Ventricular Assist Device (LVAD). If yes, STOP here.: No The patient has current or prior documentation of left ventricular ejection fraction (LVEF) less than or equal to 40%, or moderate or severely depressed left ventricular systolic function.: No A. The patient was prescribed or already taking an Angiotensin-Converting Enzyme (PETER) Inhibitor, or Angiotensin Receptor John (ARB).: No B. The patient was prescribed or already taking a beta-john. [If Yes to Both A & B, STOP here]: No Patient not prescribed/taking PETER or ARB, no reason given.: No Patient not prescribed/taking beta-john, no reason given.: No PROFEE Charge Codes Discharge inpatient/observation: [id number]
--- NOTE | 2024-01-10 09:56 | PC.NURSE ---
Wound vac intact to r lower leg wound. Settings 125mmHG, low continous. [facility] Pt seems insistant that she go with IV antibiotics instead of PO. Will discuss with care management and .
[2024-01-10 11:09] VITALS: PULSE 82; RESP 18; O2SAT 94
--- NOTE | 2024-01-10 11:38 | PT-IP ANOTE ---
Pt refused to work with PT today. She is to d/c later today and would like to rest.
--- NOTE | 2024-01-10 12:44 | CM.DPNOTE ---
DCP Note PARTY PLAN DEMONSTRATOR reviewed EMR. Per chart review, pt cleared for dc today. PARTY PLAN DEMONSTRATOR coordinated with provider, nursing staff, October from , RT, and pt often throughout the morning. PARTY PLAN DEMONSTRATOR gave RN report number and updated TICK SEWER on transport times. Per nursing, found [facility] wound vac in room. October from reports transport will bring canister for wound vac. Will send pt with [facility] wound vac. After lengthy discussion between pt, provider, and this PARTY PLAN DEMONSTRATOR, pt preference remains to dc to [facility] today, agreed to dc on PO antibiotics, and is in agreement with overall plan. Per Pt, son plans to bring her personal belongings to [facility] today. Provider in agreement for pt to use SV oxygen until adaptor from [employer] [facility] can be delivered Friday. Placed info in dc orders. Per chart review and current Wound vac settings, pt has 125mmHg on low continuous. Provider ordered for that to continue. PARTY PLAN DEMONSTRATOR faxed scripts for lyrica/methadone/oxycodone, the signed PASRR, dc orders and signed dc sum, and signed med list to [facility]. Placed originals in packet. PARTY PLAN DEMONSTRATOR emailed Luh at [facility] to update her on the DCP. PARTY PLAN DEMONSTRATOR emailed Staci at [facility] on updated DCP. PARTY PLAN DEMONSTRATOR lvm with line to confirm pt's OP wound care curtis for Thursday 01/11. P: pt to dc to [facility] today via facility transport. CM team will continue to follow as needed ROMAN Black
--- NOTE | 2024-01-10 13:00 | PC.NURSE ---
Report called to Ofelia at [facility] - including wound vac instructions and settings. 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
== END 2024-01-10 12:55 ==
LOC: ED 21:25 → AC 21:27 → ICU 21:47
PROVIDERS: Internal Medicine; Admitting Provider Internal Medicine; Emergency Provider Emergency Medicine; PCP Internal Medicine; Referring Provider Emergency Medicine; Visit Provider Internal Medicine
DX: L03.115 Cellulitis of right lower limb (principal); E11.9 Type 2 diabetes mellitus without complications; Z79.84 Long term (current) use of oral hypoglycemic drugs; Z79.4 Long term (current) use of insulin; E03.9 Hypothyroidism, unspecified; I48.20 Chronic atrial fibrillation, unspecified; D64.9 Anemia, unspecified; J44.9 Chronic obstructive pulmonary disease, unspecified; G89.29 Other chronic pain
CPT/HCPCS: 36415; 80048; 80053; 80202; 82962; 83605; 83690; 83735; 83880; 84100; 84145; 85025; 85610; 87040; 87070; 87186; 87205; 87797; 94640; 96365; 96366; 96367; 96368; 96372; 97161; 97166; 97530; 99284; G0378; A9270; J0692; J0696; J1815

== ENCOUNTER → 2024-01-12 10:06 | Outpatient (CLI) | payer MEDICARE, MEDICAID, SELFPAY ==
[2024-01-07 23:12] VITALS: BMI 53.1
== END ==
PROVIDERS: PCP Internal Medicine; Referring Provider Internal Medicine; Visit Provider Surgery
DX: T81.89XA Other complications of procedures, not elsewhere classified, initial encounter (principal); S81.801A Unspecified open wound, right lower leg, initial encounter; L98.8 Other specified disorders of the skin and subcutaneous tissue; R60.0 Localized edema; L53.9 Erythematous condition, unspecified; E11.628 Type 2 diabetes mellitus with other skin complications; I50.9 Heart failure, unspecified
CPT/HCPCS: 11042; 11045; 97606; 99203; 99213

== ENCOUNTER → 2024-01-15 15:25 | Outpatient (CLI) | payer MEDICARE, MEDICAID, SELFPAY ==
[2024-01-07 23:12] VITALS: BMI 53.1
== END ==
PROVIDERS: PCP Internal Medicine; Referring Provider Internal Medicine; Visit Provider Surgery
DX: T81.89XA Other complications of procedures, not elsewhere classified, initial encounter (principal); S81.801A Unspecified open wound, right lower leg, initial encounter; L98.8 Other specified disorders of the skin and subcutaneous tissue; R60.0 Localized edema; L53.9 Erythematous condition, unspecified
CPT/HCPCS: 97606

== ENCOUNTER → 2024-01-20 14:49 | Outpatient (CLI) | payer MEDICARE, MEDICAID, SELFPAY ==
[2024-01-07 23:12] VITALS: BMI 53.1
== END ==
PROVIDERS: PCP Internal Medicine; Referring Provider Internal Medicine; Visit Provider Surgery
DX: E11.628 Type 2 diabetes mellitus with other skin complications (principal); T81.41XA Infection following a procedure, superficial incisional surgical site, initial encounter; S81.801A Unspecified open wound, right lower leg, initial encounter; L08.89 Other specified local infections of the skin and subcutaneous tissue; L98.8 Other specified disorders of the skin and subcutaneous tissue; R60.0 Localized edema; L53.9 Erythematous condition, unspecified
CPT/HCPCS: 11042; 11045; 87070; 87075; 87077; 87186; 87205; 97606

== ENCOUNTER → 2024-01-23 11:03 | Outpatient (CLI) | payer MEDICARE, MEDICAID, SELFPAY ==
[2024-01-07 23:12] VITALS: BMI 53.1
== END ==
PROVIDERS: PCP Internal Medicine; Referring Provider Internal Medicine; Visit Provider Nurse Practitioner Family
DX: T81.89XA Other complications of procedures, not elsewhere classified, initial encounter (principal); S81.801A Unspecified open wound, right lower leg, initial encounter; L98.8 Other specified disorders of the skin and subcutaneous tissue; R60.0 Localized edema; L53.9 Erythematous condition, unspecified
CPT/HCPCS: 97606

== ENCOUNTER → 2024-01-27 14:39 | Outpatient (CLI) | payer MEDICARE, MEDICAID, SELFPAY ==
[2024-01-07 23:12] VITALS: BMI 53.1
== END ==
LOC: WC 14:40
PROVIDERS: PCP Internal Medicine; Referring Provider Internal Medicine; Visit Provider Surgery
DX: T81.89XA Other complications of procedures, not elsewhere classified, initial encounter (principal); S81.801A Unspecified open wound, right lower leg, initial encounter; L98.8 Other specified disorders of the skin and subcutaneous tissue; R60.0 Localized edema; E11.628 Type 2 diabetes mellitus with other skin complications; Z79.01 Long term (current) use of anticoagulants
CPT/HCPCS: 11042; 11045; 97606

== ENCOUNTER → 2024-01-30 13:45 | Outpatient (CLI) | payer MEDICARE, MEDICAID, SELFPAY ==
[2024-01-07 23:12] VITALS: BMI 53.1
== END ==
PROVIDERS: PCP Internal Medicine; Referring Provider Surgery Vascular Surgery; Visit Provider Physician Assistant
DX: T81.89XA Other complications of procedures, not elsewhere classified, initial encounter (principal); L98.8 Other specified disorders of the skin and subcutaneous tissue; R60.0 Localized edema; L53.9 Erythematous condition, unspecified; M79.661 Pain in right lower leg
CPT/HCPCS: 99213

== ENCOUNTER → 2024-02-03 14:35 | Outpatient (CLI) | payer MEDICARE, MEDICAID, SELFPAY ==
[2024-01-07 23:12] VITALS: BMI 53.1
== END ==
LOC: WC 14:36
PROVIDERS: PCP Internal Medicine; Referring Provider Internal Medicine; Visit Provider Surgery
DX: E11.628 Type 2 diabetes mellitus with other skin complications (principal); T81.89XA Other complications of procedures, not elsewhere classified, initial encounter; S81.801A Unspecified open wound, right lower leg, initial encounter; L98.8 Other specified disorders of the skin and subcutaneous tissue; R60.0 Localized edema; L53.9 Erythematous condition, unspecified; M79.661 Pain in right lower leg
CPT/HCPCS: 11042; 11045

== ENCOUNTER → 2024-02-20 15:39 | Outpatient (CLI) | payer MEDICARE, MEDICAID, SELFPAY ==
[2024-01-07 23:12] VITALS: BMI 53.1
== END ==
PROVIDERS: PCP Internal Medicine; Referring Provider Internal Medicine; Visit Provider Physician Assistant
DX: E11.628 Type 2 diabetes mellitus with other skin complications (principal); T81.89XA Other complications of procedures, not elsewhere classified, initial encounter; S81.801A Unspecified open wound, right lower leg, initial encounter; L98.8 Other specified disorders of the skin and subcutaneous tissue; R60.0 Localized edema; L53.9 Erythematous condition, unspecified
CPT/HCPCS: 11042; 99213

== ENCOUNTER → 2024-03-08 15:12 | Outpatient (CLI) | payer MEDICARE, MEDICAID, SELFPAY ==
[2024-01-07 23:12] VITALS: BMI 53.1
== END ==
LOC: WC 15:12
PROVIDERS: PCP Internal Medicine; Referring Provider Internal Medicine; Visit Provider Surgery
DX: T81.89XA Other complications of procedures, not elsewhere classified, initial encounter (principal); L98.8 Other specified disorders of the skin and subcutaneous tissue; S81.801A Unspecified open wound, right lower leg, initial encounter; R60.0 Localized edema; L53.9 Erythematous condition, unspecified; E11.628 Type 2 diabetes mellitus with other skin complications; Z79.01 Long term (current) use of anticoagulants
CPT/HCPCS: 11042

== ENCOUNTER → 2024-03-24 14:17 | Outpatient (CLI) | payer MEDICARE, MEDICAID, SELFPAY ==
[2024-01-07 23:12] VITALS: BMI 53.1
== END ==
PROVIDERS: PCP Internal Medicine; Referring Provider Internal Medicine; Visit Provider Surgery
DX: T81.89XA Other complications of procedures, not elsewhere classified, initial encounter (principal); S81.801A Unspecified open wound, right lower leg, initial encounter; E11.628 Type 2 diabetes mellitus with other skin complications; L89.93 Pressure ulcer of unspecified site, stage 3; R60.0 Localized edema; L53.8 Other specified erythematous conditions; L98.8 Other specified disorders of the skin and subcutaneous tissue
CPT/HCPCS: 11042; 99213

== ENCOUNTER → 2024-04-07 13:49 | Outpatient (CLI) | payer MEDICARE, MEDICAID, SELFPAY ==
[2024-01-07 23:12] VITALS: BMI 53.1
== END ==
PROVIDERS: PCP Internal Medicine; Referring Provider Internal Medicine; Visit Provider Surgery
DX: T81.89XA Other complications of procedures, not elsewhere classified, initial encounter (principal); L98.8 Other specified disorders of the skin and subcutaneous tissue; S81.801A Unspecified open wound, right lower leg, initial encounter; L89.893 Pressure ulcer of other site, stage 3; R60.0 Localized edema; L97.811 Non-pressure chronic ulcer of other part of right lower leg limited to breakdown of skin; I87.2 Venous insufficiency (chronic) (peripheral); E11.628 Type 2 diabetes mellitus with other skin complications; R23.3 Spontaneous ecchymoses; Z99.3 Dependence on wheelchair
CPT/HCPCS: 11042; 97597

== ENCOUNTER → 2024-04-21 15:12 | Outpatient (CLI) | payer MEDICARE, MEDICAID, SELFPAY ==
[2024-01-07 23:12] VITALS: BMI 53.1
== END ==
PROVIDERS: PCP Internal Medicine; Referring Provider Internal Medicine; Visit Provider Surgery
DX: T81.89XA Other complications of procedures, not elsewhere classified, initial encounter (principal); S81.801A Unspecified open wound, right lower leg, initial encounter; L98.8 Other specified disorders of the skin and subcutaneous tissue; L89.893 Pressure ulcer of other site, stage 3; L97.811 Non-pressure chronic ulcer of other part of right lower leg limited to breakdown of skin; I87.2 Venous insufficiency (chronic) (peripheral); R23.3 Spontaneous ecchymoses; R60.0 Localized edema; I50.9 Heart failure, unspecified; Z79.01 Long term (current) use of anticoagulants
CPT/HCPCS: 11042; 99213

== ENCOUNTER → 2024-04-21 15:50 | Outpatient (CLI) | payer MEDICARE, MEDICAID, SELFPAY ==
[2024-01-07 23:12] VITALS: BMI 53.1
--- NOTE | 2024-04-21 15:51 | DI.CT.S_ITS ---
PROCEDURE: CT CHEST WO CON INDICATIONS: hx of COPD, daily productive cough TECHNIQUE: Noncontrast 5 mm thick sections acquired from the pulmonary apices to the posterior costophrenic angles. 1 mm lung window, 5 mm thick coronal and sagittal and 7 mm axial MIP reformats were then acquired. For radiation dose reduction, the following was used: automated exposure control, adjustment of mA and/or kV according to patient size. COMPARISON: None. FINDINGS: Image quality: Diagnostic. Lower Neck: No enlarged lymph nodes. Thyroid: No thyroid nodules which require sonographic follow up, per consensus guidelines. Axillae: No enlarged lymph nodes. Chest Wall: Large right chest wall varicose vein. Otherwise, unremarkable. Bones: Unremarkable. Lungs and Pleura: Mild diffuse bronchiectasis. No pneumothorax or pleural effusions. No consolidation or suspicious nodules. Heart: Heart size is mildly enlarged. Dense mitral valve calcification. Faint aortic valve calcification. Faint calcification of the LAD coronary artery. No pericardial effusion. Thoracic Vessels: The aorta and pulmonary arteries demonstrate normal size. Mediastinum and Nancy: No enlarged lymph nodes. Esophagus: Mild distal esophageal wall thickening. No hiatal hernia. Upper Abdomen: Visualized upper abdomen solid organs and bowel loops appear normal. IMPRESSION: 1. Mild diffuse bronchiectasis. 2. Patient does not exhibit typical morphology for COPD and does not have significant emphysematous changes seen on CT. Dictated by: Gerardo Scott M.D. on 04/22/2024 at 11:07 Approved by: Gerardo Scott M.D. on 04/22/2024 at 11:21
== END ==
PROVIDERS: PCP Internal Medicine; Referring Provider Student in an Organized Health Care Education/Training Program; Visit Provider Student in an Organized Health Care Education/Training Program
DX: J47.9 Bronchiectasis, uncomplicated (principal); I34.81 Nonrheumatic mitral (valve) annulus calcification; I51.7 Cardiomegaly; R06.02 Shortness of breath; T81.89XA Other complications of procedures, not elsewhere classified, initial encounter; S81.801A Unspecified open wound, right lower leg, initial encounter; L98.8 Other specified disorders of the skin and subcutaneous tissue; L89.893 Pressure ulcer of other site, stage 3; L97.811 Non-pressure chronic ulcer of other part of right lower leg limited to breakdown of skin; I87.2 Venous insufficiency (chronic) (peripheral); R23.3 Spontaneous ecchymoses; R60.0 Localized edema; I50.9 Heart failure, unspecified; Z79.01 Long term (current) use of anticoagulants
CPT/HCPCS: 11042; 71250

== ENCOUNTER → 2024-05-05 10:27 | Outpatient (CLI) | payer MEDICARE, MEDICAID, SELFPAY ==
[2024-01-07 23:12] VITALS: BMI 53.1
== END ==
PROVIDERS: PCP Family Medicine; Referring Provider Family Medicine; Visit Provider Surgery
DX: L97.812 Non-pressure chronic ulcer of other part of right lower leg with fat layer exposed (principal); I87.2 Venous insufficiency (chronic) (peripheral); R60.0 Localized edema; L89.893 Pressure ulcer of other site, stage 3; T81.89XA Other complications of procedures, not elsewhere classified, initial encounter; L98.8 Other specified disorders of the skin and subcutaneous tissue; S81.801A Unspecified open wound, right lower leg, initial encounter; R23.3 Spontaneous ecchymoses; Z79.01 Long term (current) use of anticoagulants; Z74.09 Other reduced mobility
CPT/HCPCS: 97597; 97602; 99213

== ENCOUNTER → 2024-05-05 15:54 | Outpatient (CLI) | payer MEDICARE, MEDICAID, SELFPAY ==
[2024-01-07 23:12] VITALS: BMI 53.1
== END ==
LOC: RESP 15:56
PROVIDERS: PCP Family Medicine; Referring Provider Student in an Organized Health Care Education/Training Program; Visit Provider Student in an Organized Health Care Education/Training Program
DX: J44.9 Chronic obstructive pulmonary disease, unspecified (principal); F17.210 Nicotine dependence, cigarettes, uncomplicated; Z94.2 Lung transplant status; E66.2 Morbid (severe) obesity with alveolar hypoventilation; J96.11 Chronic respiratory failure with hypoxia
CPT/HCPCS: 94060; 94726; 94729

== ENCOUNTER → 2024-05-26 16:21 | Outpatient (CLI) | payer MEDICARE, MEDICAID, SELFPAY ==
[2024-01-07 23:12] VITALS: BMI 53.1
[2024-05-27 16:03] LABS: HIV 1 & 2 Ab/Ag 4th Gen Combo NEGATIVE (NEGATIVE); Hep C Virus Ab w/Reflex Quant REACTIVE s/c (NEGATIVE)
== END ==
LOC: LAB 16:23
PROVIDERS: PCP Family Medicine; Referring Provider Nurse Practitioner Family; Visit Provider Nurse Practitioner Family
DX: B18.2 Chronic viral hepatitis C (principal)
CPT/HCPCS: 36415; 86803; 87389; 87522

== ENCOUNTER → 2024-06-02 14:44 | Outpatient (CLI) | payer MEDICARE, MEDICAID, SELFPAY ==
[2024-01-07 23:12] VITALS: BMI 53.1
== END ==
LOC: WC 14:46
PROVIDERS: PCP Family Medicine; Referring Provider Internal Medicine; Visit Provider Surgery
DX: Z09 Encounter for follow-up examination after completed treatment for conditions other than malignant neoplasm (principal); Z87.2 Personal history of diseases of the skin and subcutaneous tissue; L89.893 Pressure ulcer of other site, stage 3; S81.801D Unspecified open wound, right lower leg, subsequent encounter
CPT/HCPCS: 99213

== ENCOUNTER 2024-07-24 18:46 | Observation (INO) | payer MEDICARE, MEDICAID, SELFPAY ==
[2024-01-07 23:12] VITALS: BMI 53.1
[2024-07-24] VITALS (13 sets, daily range): BP systolic 146; BP diastolic 65; PULSE 83–97; RESP 17–30; TEMP 36.9; O2SAT 93–99; BMI 50.5
[2024-07-24 19:58] LABS: Add Manual Diff / Slide Review NO; Basophils Absolute Auto 100 /uL (0-100); Basophils Percent Auto 0.4 % (0-2); Eosinophils Absolute Auto 400 /uL (0-450); Eosinophils Percent Auto 2.9 % (2-4); Hemoglobin 11.2 g/dL (12.0-16.0); Lymphocytes Absolute Auto 1800 /uL (1100-4500); Lymphocytes Percent Auto 14.4 % (25-40); Mean Corpuscular HGB Conc 32.9 % (30-36); Mean Corpuscular Hemoglobin 24.8 PG (26-34); Mean Corpuscular Volume 75.3 fL (80-100); Monocytes Absolute Auto 800 /uL (0-900); Neutrophils Absolute Auto 9600 /uL (1500-7000); Neutrophils Percent Auto 76.3 % (50-75); Platelet Count 306 X10^3/uL (150-400); Red Blood Cell Count 4.51 X10^6/uL (4.0-5.2); Red Cell Distribution Width 18.9 % (11.6-14.8); White Blood Cell Count 12.5 X10^3/uL (4.5-11.0)
[2024-07-24 20:00] LABS: Alanine Aminotransferase 21 IU/L (<35); Albumin 4.3 g/dL (3.5-5.0); Albumin Globulin Ratio 1.2 (1.0-2.8); Alkaline Phosphatase 118 U/L (38-126); Aspartate Aminotransferase 25 IU/L (14-36); BUN Creatinine Ratio 28.2 (6-22); Bilirubin Total 0.7 mg/dL (0.2-1.3); Blood Urea Nitrogen 24 mg/dL (7-17); Calcium 9.1 mg/dL (8.4-10.2); Carbon Dioxide 34 mmol/L (22-32); Chloride 94 mmol/L (98-107); Estimated Glomerular Filt Rate > 60 mL/min (>60); Globulin 3.5 g/dL (1.7-4.1); Glucose 109 mg/dL (80-110); HEMOLYSIS < 15 (0-50); Potassium 3.6 mmol/L (3.4-5.1); Sodium 138 mmol/L (137-145); Total Protein 7.8 g/dL (6.3-8.2)
[2024-07-24 20:09] LABS: NT-proBNP (BNP-Adult 18+) 1210 pg/mL (<125)
--- NOTE | 2024-07-24 20:53 | PC.NURSE ---
Pt sitting up in bed. Denies pain at this time. Appears in NAD. Playing video games on phone.
--- NOTE | 2024-07-24 23:49 | ED_ITS ---
HPI - Skin/Abscess/Foreign Bdy General Chief complaint: Skin/Abscess/Foreign Body Stated complaint: L Leg Pain Time Seen by Provider: 07/24/24 23:15 Source: EMS Mode of arrival: EMS Limitations: physical limitation History of Present Illness HPI narrative: 63-year-old female with history of diabetes, COPD, recent sinusitis status post course of amoxicillin or Augmentin, previous lower extremity cellulitis infections, has left-sided greater than right-sided pain redness and swelling to both legs over the last few days. No trauma recalled. No history of blood clots recalled. Denies fever. Increasing pain, can not walk on her left leg. Related Data Home Medications Medication Instructions Recorded Confirmed acetaminophen 500 mg tablet 1,000 mg BID PRN Pain (Scale Score 12/05/23 07/24/24 1-3) apixaban 5 mg tablet (Eliquis) 5 mg PO BID 12/05/23 07/24/24 atorvastatin 40 mg tablet 40 mg PO DAILY 12/05/23 07/24/24 benzonatate 100 mg capsule 100 mg PO DAILY PRN Cough 12/05/23 07/24/24 digoxin 250 mcg (0.25 mg) tablet 250 mcg PO QPM 12/05/23 07/24/24 diltiazem HCl 300 mg capsule,24 300 mg PO DAILY 12/05/23 07/24/24 hr,extended release fluticasone propionate 50 2 spray intranasal DAILY ALLERGY 12/05/23 07/24/24 mcg/actuation nasal spray,suspension guaifenesin 600 mg tablet, 600 mg PO BID 12/05/23 07/24/24 extended release 12 hr insulin glargine 100 unit/mL (3 10 unit SUBCUT DAILY 12/05/23 07/24/24 mL) subcutaneous pen (Lantus Solostar U-100 Insulin) levothyroxine 150 mcg tablet 150 mcg PO QAM 12/05/23 07/24/24 liothyronine 25 mcg tablet 25 mcg PO QAM 12/05/23 07/24/24 magnesium chloride 64 mg 64 mg PO DAILY 12/05/23 07/24/24 tablet,extended release metformin 1,000 mg 24 hr 1,000 mg PO BID 12/05/23 07/24/24 tablet,extended release (gastric reten.) omeprazole 20 mg capsule,delayed 20 mg PO DAILY 12/05/23 07/24/24 release potassium chloride 20 mEq 20 meq PO BID 12/05/23 07/24/24 tablet,extended release(part/cryst) sertraline 100 mg tablet 200 mg PO DAILY 12/05/23 07/24/24 sitagliptin phosphate 50 mg tablet 50 mg PO DAILY 12/05/23 07/24/24 (Januvia) tizanidine 4 mg tablet 4 mg PO Q6H PRN Muscle Spasm 12/05/23 07/24/24 torsemide 20 mg tablet 40 mg PO BID 12/05/23 07/24/24 ipratropium 0.5 mg-albuterol 3 mg 3 ml inhalation Q8HR 12/08/23 07/24/24 (2.5 mg base)/3 mL nebulization soln Chewable Vitamin C 250 mg PO DAILY 07/24/24 07/24/24 melatonin 10 mg tablet 10 mg PO BEDTIME 07/24/24 07/24/24 oxycodone 10 mg tablet 10 mg PO Q6HR PRN Pain, Severe 07/24/24 07/24/24 Previous Rx's Medication Instructions Recorded ferrous sulfate 325 mg (65 mg 325 mg PO DAILY #30 tabs 12/12/23 iron) tablet acetaminophen 325 mg tablet 650 mg (2 x 325 mg) PO Q6H PRN 01/10/24 Fever/Mild Pain (1-3) #30 tabs linezolid 600 mg tablet 600 mg PO BID #40 tabs 01/10/24 methadone 10 mg tablet 10 mg PO BID #60 tabs 01/10/24 pregabalin 75 mg capsule 75 mg PO BID #60 caps 01/10/24 budesonide-formoterol HFA 160 2 puff inhalation BID #10.2 grams 06/29/24 mcg-4.5 mcg/actuation aerosol inhaler (Symbicort) Allergies Allergy/AdvReac Type Severity Reaction Status Date / Time Sulfa (Sulfonamide Allergy Verified 07/24/24 19:18 Antibiotics) Patient History Medical History Afib Anxiety Asthma CHF (congestive heart failure) Chronic hypoxic respiratory failure COPD (chronic obstructive pulmonary disease) Depression Diabetes Diabetic nephropathy GERD (gastroesophageal reflux disease) Hypothyroid Obesity hypoventilation syndrome Surgical History History of incision and drainage Social History household members: none Smoking Status: Former smoker alcohol intake: never Smoking Status: Former smoker tobacco type: cigarettes Exam Narrative Exam Narrative: GENERAL: Well-developed patient, in mild distress. Morbid obesity, weight 159.6 kilos, BMI 50.5 noted. HEAD: Atraumatic. Normocephalic. EYES: Pupils equal round and reactive. Extraocular motions intact. No scleral icterus. No injection or drainage. ENT: Nose without bleeding, purulent drainage. Throat without erythema, tonsillar hypertrophy or exudate. Airway patent. NECK: Trachea midline. Non tender CARDIOVASCULAR: Regular rate and rhythm without murmurs, gallops, or rubs. RESPIRATORY: Clear to auscultation. Breath sounds equal bilaterally. No wheezes, rales, or rhonchi. GASTROINTESTINAL: Abdomen soft, non-tender, nondistended. EXTREMITIES: Left greater than right erythema with swelling to calf both sides, larger area of redness with warmth on the left calf, as well as swelling up to the thigh on the left side. DP pulses adequate. BACK: Nontender without deformity or crepitance. No flank tenderness. NEURO: AOx3. Motor functions grossly nonfocal SKIN: No rash or erythema of visible areas Initial Vital Signs Initial Vital Signs: Vital Signs Blood Pressure 146/65 H 07/24/24 18:55 Course Orders Ordered: Acetaminophen (Acetaminophen 325 Mg Tablet) 650 mg PO Q6H PRN PRN Reason: Fever/Mild Pain (1-3) Albuterol (Albuterol 2.5 Mg/3 Ml Neb (Adult)) 2.5 mg INH Q2H PRN PRN Reason: Shortness Of Breath Albuterol/Ipratropium (Albuterol/Ipratropium 3 Ml Ampul) 3 ml INH Q8HR [facility] Last Admin: 07/25/24 13:46 Dose: 3 ml Documented By: Admin: 07/25/24 07:51 Dose: 3 ml Documented By: RONNIE(2) Apixaban (Apixaban 5 Mg Tablet) 5 mg PO BID [facility] Last Admin: 07/25/24 08:39 Dose: 5 mg Documented By: KIERSTEN Atorvastatin Calcium (Atorvastatin 20 Mg Tablet) 40 mg PO DAILY [facility] Last Admin: 07/25/24 08:38 Dose: 40 mg Documented By: KIERSTEN Budesonide (Budesonide 0.5 Mg/2 Ml Neb) 0.5 mg INH RTBID [facility] Last Admin: 07/25/24 07:51 Dose: 0.5 mg Documented By: RONNIE(2) Dextrose (Dextrose 50 % In Water 25 Gm/50 Ml Syringe) 25 gm IV PRN PRN PRN Reason: Hypoglycemia Digoxin (Digoxin 0.125 Mg Tablet) 0.25 mg PO QPM [facility] Diltiazem HCl (Diltiazem Cd 120 Mg Cap) 120 mg PO DAILY [facility] Last Admin: 07/25/24 08:39 Dose: 120 mg Documented By: KIERSTEN Diltiazem HCl (Diltiazem Cd 180 Mg Cap) 180 mg PO DAILY [facility] Last Admin: 07/25/24 08:39 Dose: 180 mg Documented By: KIERSTEN Ceftriaxone Sodium 1,000 mg/ (Sodium Chloride) 100 mls @ 200 mls/hr IV Q24H [facility] Vancomycin HCl (Vancomycin) 1,250 mg in 250 mls @ 166.667 mls/hr IV Q12H [facility] Last Admin: 07/25/24 12:19 Dose: 166.667 mls/hr Documented By: KIERSTEN Insulin Glargine (Insulin Glargine 100 Unit/Ml 3ml Pen) 10 unit SUBCUT BEDTIME [facility] Insulin Human Lispro (Insulin Lispro 100 Unit/Ml 3ml Vial) 0 unit SUBCUT ACHS [facility]; Protocol Last Admin: 07/25/24 12:19 Dose: Not Given Documented By: Admin: 07/25/24 08:54 Dose: Not Given Documented By: KIERSTEN Levothyroxine Sodium (Levothyroxine 75 Mcg Tablet) 150 mcg PO 0600 [facility] Last Admin: 07/25/24 06:32 Dose: 150 mcg Documented By: Liothyronine Sodium (Liothyronine 5 Mcg Tablet) 25 mcg PO DAILY [facility] Last Admin: 07/25/24 08:39 Dose: 25 mcg Documented By: KIERSTEN Melatonin (Melatonin 3 Mg Tablet) 9 mg PO BEDTIME [facility] Metformin HCl (Metformin Xr 500 Mg Tablet) 1,000 mg PO BID [facility] Last Admin: 07/25/24 08:39 Dose: 1,000 mg Documented By: KIERSTEN Methadone HCl (Methadone 10 Mg Tablet) 10 mg PO BID [facility] Last Admin: 07/25/24 12:19 Dose: 10 mg Documented By: KIERSTEN Naloxone HCl (Naloxone 0.4 Mg/Ml Vial) 0.2 mg IV Q2MIN PRN PRN Reason: Opiate Reversal Oxycodone HCl (Oxycodone Ir 10 Mg Tablet) 10 mg PO Q6HR PRN PRN Reason: Pain, Severe (7-10) Last Admin: 07/25/24 15:25 Dose: 10 mg Documented By: Admin: 07/25/24 06:31 Dose: 10 mg Documented By: Pantoprazole Sodium (Pantoprazole Dr 20 Mg Tablet) 20 mg PO 0600 [facility] Last Admin: 07/25/24 06:32 Dose: 20 mg Documented By: Potassium Chloride (Potassium Chloride 20 Meq Tab) 20 meq PO BIDWM JENNIFER Pregabalin (Pregabalin 75 Mg Capsule) 75 mg PO BID [facility] Last Admin: 07/25/24 08:38 Dose: 75 mg Documented By: KIERSTEN Sertraline HCl (Sertraline 50 Mg Tablet) 200 mg PO DAILY [facility] Last Admin: 07/25/24 08:38 Dose: 200 mg Documented By: KIERSTEN Sitagliptin Phosphate (Sitagliptin 50 Mg Tablet) 50 mg PO DAILY [facility] Last Admin: 07/25/24 08:39 Dose: 50 mg Documented By: KIERSTEN Tizanidine HCl (Tizanidine 4 Mg Tablet) 4 mg PO Q6H PRN PRN Reason: Muscle Spasm Torsemide (Torsemide 10 Mg Tablet) 40 mg PO BID [facility] Last Admin: 07/25/24 08:39 Dose: 40 mg Documented By: KIERSTEN Vancomycin HCl (Vancomycin Per Pharmacy) 1 request MISC NOW PRN PRN Reason: cellulitis Vancomycin HCl (Vancomycin Trough) 1 request MISC 1230 ONE Stop: 07/26/24 12:31 Discontinued Medications Diphenhydramine HCl (Diphenhydramine 25 Mg Tablet) 50 mg PO NOW ONE Stop: 07/25/24 05:47 Last Admin: 07/25/24 06:32 Dose: 50 mg Documented By: Hydromorphone HCl (Hydromorphone 0.5 Mg Inj) 0.5 mg IV NOW ONE Stop: 07/25/24 00:27 Last Admin: 07/25/24 00:50 Dose: 0.5 mg Documented By: FRIEDA Vancomycin HCl 2,000 mg/ (Sodium Chloride) 500 mls @ 250 mls/hr IV NOW ONE Stop: 07/24/24 23:57 Last Admin: 07/25/24 00:30 Dose: Not Given Documented By: FRIEDA Ceftriaxone Sodium 1,000 mg/ (Sodium Chloride) 100 mls @ 200 mls/hr IV NOW ONE Stop: 07/24/24 23:58 Last Infusion: 07/25/24 01:01 Dose: Infused Documented By: Admin: 07/25/24 00:21 Dose: 200 mls/hr Documented By: FRIEDA Vancomycin HCl 2,000 mg/ (Sodium Chloride) 400 mls @ 400 mls/hr IV NOW ONE Stop: 07/25/24 00:19 Last Admin: 07/25/24 00:58 Dose: Not Given Documented By: FRIEDA Vancomycin HCl/Dextrose (Vancomycin) 2,000 mg in 400 mls @ 200 mls/hr IV NOW ONE Stop: 07/25/24 03:59 Last Infusion: 07/25/24 03:47 Dose: 0 mls/hr Documented By: Infusion: 07/25/24 03:18 Dose: 200 mls/hr Documented By: Infusion: 07/25/24 01:17 Dose: 0 mls/hr Documented By: Admin: 07/25/24 00:50 Dose: 200 mls/hr Documented By: FRIEDA Dextrose (D10w) 100 mls @ 1,200 mls/hr IV PRN PRN PRN Reason: Hypoglycemia Insulin Glargine (Insulin Glargine 100 Unit/Ml 3ml Pen) 10 unit SUBCUT DAILY JENNIFER Non-Formulary Medication (Budesonide-Formoterol [Symbicort]) 2 puff INHALATION BID JENNIFER Non-Formulary Medication (Diltiazem Hcl) 300 mg PO DAILY JENNIFER Non-Formulary Medication (Melatonin) 10 mg PO BEDTIME JENNIFER Non-Formulary Medication (Omeprazole) 20 mg PO DAILY EJNNIFER Non-Formulary Medication (Digoxin) 250 mcg PO QPM JENNIFER Non-Formulary Medication (Levothyroxine) 150 mcg PO QAM JENN[facility]ER Non-Formulary Medication (Liothyronine) 25 mcg PO QAM [facility]ENN[facility]ER Potassium Chloride (Potassium Chloride 20 Meq Tab) 20 meq PO BID [facility]ENN[facility]ER Last Admin: 07/25/24 08:39 Dose: 20 meq Documented By: KIERSTEN Potassium Chloride (Potassium Chloride 20 Meq Tab) 40 meq PO QNOON ONE Stop: 07/25/24 12:01 Last Admin: 07/25/24 12:19 Dose: 40 meq Documented By: KIERSTEN Vital Signs Vital signs: Vital Signs - 8 hr 07/24/24 18:55 07/24/24 18:56 07/24/24 19:00 Temperature Pulse Rate 83 86 Respiratory Rate Blood Pressure 146/65 H Pulse Oximetry 99 98 Oxygen Delivery Method 07/24/24 19:03 07/24/24 19:30 07/24/24 20:00 Temperature 98.4 F Pulse Rate 83 85 88 Respiratory Rate 18 22 20 Blood Pressure 146/65 H Pulse Oximetry 99 96 94 Oxygen Delivery Method Room Air Room Air 07/24/24 20:30 07/24/24 21:00 07/24/24 21:30 Temperature Pulse Rate 94 H 88 92 H Respiratory Rate 20 17 29 H Blood Pressure Pulse Oximetry 96 95 94 Oxygen Delivery Method 07/24/24 22:00 07/24/24 22:30 07/24/24 23:00 Temperature Pulse Rate 91 H 92 H 87 Respiratory Rate 30 H 23 21 Blood Pressure Pulse Oximetry 93 94 94 Oxygen Delivery Method 07/24/24 23:30 07/25/24 00:00 07/25/24 00:30 Temperature Pulse Rate 97 H 92 H 90 Respiratory Rate 20 23 Blood Pressure Pulse Oximetry 95 93 92 Oxygen Delivery Method Room Air MDM - Skin/Abscess/Foreign Bdy Lab Data Attestation: I reviewed the patient's lab results. Lab results narrative: White blood cell count 15623, hemoglobin 11.2, platelets adequate. Glucose 109. BUN 24 with creatinine 0.85. Sodium 138 potassium 3.6, serum CO2 34. Liver functions unremarkable. BNP 1210. Lactate 1.7 normal. Respiratory swab for COVID flu RSV negative. 07/25/24 08:30 07/25/24 08:30 Labs: Lab Results 07/24/24 07/24/24 07/25/24 Range/Units 19:30 23:30 00:25 WBC 12.5 H (4.5-11.0) X10^3/uL RBC 4.51 (4.0-5.2) X10^6/uL Hgb 11.2 L (12.0-16.0) g/dL Hct 34.0 L (36-46) % MCV 75.3 L (80-100) fL MCH 24.8 L (26-34) PG MCHC 32.9 (30-36) % RDW 18.9 H (11.6-14.8) % Plt Count 306 (150-400) X10^3/uL Neut % (Auto) 76.3 H (50-75) % Lymph % (Auto) 14.4 L (25-40) % [place] % (Auto) 6.0 (3-14) % Eos % (Auto) 2.9 (2-4) % Baso % (Auto) 0.4 (0-2) % Neut # (Auto) 9600 H (9384-1956) /uL Lymph # (Auto) 1800 (6479-2300) /uL [place] # (Auto) 800 (0-900) /uL Eos # (Auto) 400 (0-450) /uL Baso # (Auto) 100 (0-100) /uL Sodium 138 (137-145) mmol/L Potassium 3.6 (3.4-5.1) mmol/L Chloride 94 L (98-107) mmol/L Carbon Dioxide 34 H (22-32) mmol/L BUN 24 H (7-17) mg/dL Creatinine 0.85 (0.52-1.04) mg/dL Estimated GFR > 60 (>60) mL/min BUN/Creatinine Ratio 28.2 H (6-22) Glucose 109 (80-110) mg/dL Lactate 1.7 (0.7-2.1) mmol/L Calcium 9.1 (8.4-10.2) mg/dL Total Bilirubin 0.7 (0.2-1.3) mg/dL AST 25 (14-36) IU/L ALT 21 (<35) IU/L Alkaline Phosphatase 118 (38-126) U/L NT-Pro-B Natriuret Pep 1210 H (<125) pg/mL Total Protein 7.8 (6.3-8.2) g/dL Albumin 4.3 (3.5-5.0) g/dL Globulin 3.5 (1.7-4.1) g/dL Albumin/Globulin Ratio 1.2 (1.0-2.8) SARS-CoV-2 (PCR) Negative (Negative) Influenza A (RT-PCR) Flu a negative (NEGATIVE) Influenza B (RT-PCR) Flu b negative (NEGATIVE) RSV (PCR) Negative (Negative) MDM Narrative Medical decision making narrative: 63-year-old female with history of diabetes and CHF, has [id number]-right cellulitis on examination, with edema above the knee on the left side. Afebrile, sirs screen negative. No crepitance, no open wounds or weeping. DP pulses seem adequate, no intertriginous toe infections or foot ulcer seemed obvious. Labs sent, blood cultures, IV vancomycin, IV ceftriaxone. Venous Doppler studies ordered. Frequent coughing noted, no hypoxia, will add COVID/flu/RSV swab. Covid flu RSV negative. Venous Doppler studies negative for DVT. Patient still having LLE pain, IV Dilaudid given. Consider admission. Will contact hospitalist. [phone], case discussed with hospitalist Dr. Zayas who accepts patient for admission to observation. Critical Care Time Critical Care Time Critical Care Time: Yes Total Critical Care Time: 35 Attestation: The high probability of a clinically significant, sudden or life threatening deterioration of the [dermatologic, vascular, cardiopulmonary] system(s) required my full and direct attention, intervention and personal management. The aggregate critical care time was [35] minutes. This time is in addition to time spent performing reported procedures but includes the following: [x] Data Review and interpretation [x] Patient assessment and monitoring of vital signs [x] Documentation [x] Medication orders and management Discharge Plan Departure Patient Disposition: Admitted as Observation Clinical Impression: Cellulitis of left leg, Cellulitis of right leg, Upper respiratory infection Admit Date/Time: 07/25/24 03:11 Admit Provider: Joshua Broderick
[2024-07-25] VITALS (56 sets, daily range): BP systolic 113–155; BP diastolic 56–72; PULSE 75–99; RESP 10–32; TEMP 31–37; O2SAT 88–100; BMI 50.5
--- NOTE | 2024-07-25 00:02 | DI.US.S_ITS ---
PROCEDURE: US PERIPH VENOUS LOW EXTREM BI INDICATIONS: L>R swelling redness TECHNIQUE: Real-time imaging, as well as color and pulse Doppler interrogation, were performed of the deep veins of both legs from the inguinal ligament to the popliteal fossa, with documentation of the visualized calf veins. COMPARISON: None. FINDINGS: Please note that the posterior tibial and peroneal veins were not identified bilaterally due to overlying edema. Right: The common femoral, femoral, popliteal, and the visualized calf veins are normally compressible, and free of intraluminal thrombus. Color and pulse Doppler demonstrate normal phasic intravascular flow. There is normal augmentation response to distal compression maneuver. Left: The common femoral, femoral, popliteal, and the visualized calf veins are normally compressible, and free of intraluminal thrombus. Color and pulse Doppler demonstrate normal phasic intravascular flow. There is normal augmentation response to distal compression maneuver. IMPRESSION: No findings of deep venous thrombosis in either lower extremity. Dictated by: Ric Bai M.D. on 07/25/2024 at 1:07 Approved by: Ric Bai M.D. on 07/25/2024 at 1:07
[2024-07-25] MEDS: cefTRIAXone 1,000 MG in SODIUM CHLORIDE 0.9% 100 ML 200 MG IV ×2 (00:21→22:45)
[2024-07-25] MEDS: VANCOMYCIN 2,000 MG/400 ML PIGGYBACK 200 MG IV (00:50)
[2024-07-25] MEDS: HYDROMORPHONE 0.5 MG INJ IV (00:50)
[2024-07-25 01:13] LABS: Influenza A - CEPHEID Flu A NEGATIVE (NEGATIVE); Influenza B - CEPHEID Flu B NEGATIVE (NEGATIVE); Respiratory Syncytial Virus Negative (Negative)
--- NOTE | 2024-07-25 01:23 | DI.RAD.S_ITS ---
PROCEDURE: XR CHEST 1V INDICATIONS: cough TECHNIQUE: One view of the chest was acquired. COMPARISON: [facility], CT, CT CHEST WO CON, 04/21/2024, 16:01. FINDINGS: Surgical changes and devices: None. Lungs and pleura: Bilateral interstitial prominence. No focal consolidation. No pleural effusions or pneumothorax. Mediastinum: Cardiac silhouette is mildly enlarged. Bones and chest wall: No suspicious bony lesions. Overlying soft tissues appear unremarkable. IMPRESSION: Mild bilateral interstitial prominence may be secondary to mild edema versus an atypical or viral pneumonia. Approved by: Haja Jeffers M.D. on 07/25/2024 at 8:59
[2024-07-25 01:24] LABS: COVID-19 CEPHEID 4-PLEX PCR Negative (Negative)
[2024-07-25 01:38] LABS: Lactate (Lactic Acid) 1.7 mmol/L (0.7-2.1)
--- NOTE | 2024-07-25 04:13 | P.HP_ITS ---
History of Present Illness History of Present Illness Chief complaint: L Leg Pain Narrative: 63 y/o with PMH of depression, chronic pain, on methadone and oxycodone, DM, COPD, hypothyroidism, GERD, and recurrent b/l leg cellulitis, presented with another episode. Her left leg is more affected and she complains on pain and tenderness. In the ED she was treated with Rocephin and vancomycin. Upon admission she developed itch possibly related to vancomycin. Not septic. Placed in observation for IV abx, supportive care. [facility] Medical History (Updated 07/25/24 @ 07:26 by Joshua Zayas MD) Asthma Obesity hypoventilation syndrome Chronic hypoxic respiratory failure Anxiety Depression CHF (congestive heart failure) COPD (chronic obstructive pulmonary disease) Diabetic nephropathy GERD (gastroesophageal reflux disease) Hypothyroid Afib Diabetes Surgical History History of incision and drainage Social History household members: none Smoking Status: Former smoker alcohol intake: never Meds Home Medications and Allergies Home Medications Medication Instructions Recorded Confirmed Type acetaminophen 500 mg tablet 1,000 mg BID PRN Pain (Scale Score 12/05/23 07/24/24 History 1-3) apixaban 5 mg tablet (Eliquis) 5 mg PO BID 12/05/23 07/24/24 History atorvastatin 40 mg tablet 40 mg PO DAILY 12/05/23 07/24/24 History benzonatate 100 mg capsule 100 mg PO DAILY PRN Cough 12/05/23 07/24/24 History digoxin 250 mcg (0.25 mg) tablet 250 mcg PO QPM 12/05/23 07/24/24 History diltiazem HCl 300 mg capsule,24 300 mg PO DAILY 12/05/23 07/24/24 History hr,extended release fluticasone propionate 50 2 spray intranasal DAILY ALLERGY 12/05/23 07/24/24 History mcg/actuation nasal spray,suspension guaifenesin 600 mg tablet, 600 mg PO BID 12/05/23 07/24/24 History extended release 12 hr insulin glargine 100 unit/mL (3 10 unit SUBCUT DAILY 07/19/24 03/08/25 History mL) subcutaneous pen (Lantus Solostar U-100 Insulin) levothyroxine 150 mcg tablet 150 mcg PO QAM 12/05/23 07/24/24 History liothyronine 25 mcg tablet 25 mcg PO QAM 12/05/23 07/24/24 History magnesium chloride 64 mg 64 mg PO DAILY 12/05/23 07/24/24 History tablet,extended release metformin 1,000 mg 24 hr 1,000 mg PO BID 12/05/23 07/24/24 History tablet,extended release (gastric reten.) omeprazole 20 mg capsule,delayed 20 mg PO DAILY 12/05/23 07/24/24 History release potassium chloride 20 mEq 20 meq PO BID 12/05/23 07/24/24 History tablet,extended release(part/cryst) sertraline 100 mg tablet 200 mg PO DAILY 12/05/23 07/24/24 History sitagliptin phosphate 50 mg tablet 50 mg PO DAILY 12/05/23 07/24/24 History (Januvia) tizanidine 4 mg tablet 4 mg PO Q6H PRN Muscle Spasm 12/05/23 07/24/24 History torsemide 20 mg tablet 40 mg PO BID 12/05/23 07/24/24 History ipratropium 0.5 mg-albuterol 3 mg 3 ml inhalation Q8HR 12/08/23 07/24/24 History (2.5 mg base)/3 mL nebulization soln ferrous sulfate 325 mg (65 mg 325 mg PO DAILY #30 tabs 12/12/23 07/24/24 Rx iron) tablet acetaminophen 325 mg tablet 650 mg (2 x 325 mg) PO Q6H PRN 01/10/24 07/24/24 Rx Fever/Mild Pain (1-3) #30 tabs linezolid 600 mg tablet 600 mg PO BID #40 tabs 01/10/24 07/24/24 Rx methadone 10 mg tablet 10 mg PO BID #60 tabs 01/10/24 07/24/24 Rx pregabalin 75 mg capsule 75 mg PO BID #60 caps 01/10/24 07/24/24 Rx budesonide-formoterol HFA 160 2 puff inhalation BID #10.2 grams 06/29/24 07/24/24 Rx mcg-4.5 mcg/actuation aerosol inhaler (Symbicort) Chewable Vitamin C 250 mg PO DAILY 07/24/24 07/24/24 History melatonin 10 mg tablet 10 mg PO BEDTIME 07/24/24 07/24/24 History oxycodone 10 mg tablet 10 mg PO Q6HR PRN Pain, Severe 07/24/24 07/24/24 History Allergies Allergy/AdvReac Type Severity Reaction Status Date / Time Sulfa (Sulfonamide Allergy Verified 07/24/24 19:18 Antibiotics) Review of Systems Review of Systems Narrative: General - w/o fever, chills or sweats EXT / Skin - swollen legs, redness, tenderness, worse on the left CVS - w/o chest pain RS - w/o shortness of breath Exam Vital Signs (past 8 hours): - 07/24/24 19:30 07/24/24 20:00 07/24/24 20:30 Pulse Rate 85 88 94 H Respiratory Rate 22 20 20 Blood Pressure Pulse Oximetry 96 94 96 Oxygen Delivery Method Room Air 07/24/24 21:00 07/24/24 21:30 07/24/24 22:00 Pulse Rate 88 92 H 91 H Respiratory Rate 17 29 H 30 H Blood Pressure Pulse Oximetry 95 94 93 Oxygen Delivery Method 07/24/24 22:30 07/24/24 23:00 07/24/24 23:30 Pulse Rate 92 H 87 97 H Respiratory Rate 23 21 Blood Pressure Pulse Oximetry 94 94 95 Oxygen Delivery Method Room Air 07/25/24 00:00 07/25/24 00:30 07/25/24 00:56 Pulse Rate 92 H 90 Respiratory Rate 20 23 Blood Pressure 145/72 H Pulse Oximetry 93 92 Oxygen Delivery Method 07/25/24 00:56 07/25/24 01:00 07/25/24 01:00 Pulse Rate 90 93 H Respiratory Rate 21 16 Blood Pressure 145/65 H Pulse Oximetry 94 93 Oxygen Delivery Method 07/25/24 01:30 07/25/24 01:30 07/25/24 01:59 Pulse Rate 90 93 H Respiratory Rate 21 23 Blood Pressure 142/67 H Pulse Oximetry 96 Oxygen Delivery Method 07/25/24 03:00 07/25/24 03:03 Pulse Rate 89 Respiratory Rate 18 Blood Pressure 155/63 H Pulse Oximetry Oxygen Delivery Method Oxygen Delivery Method Room Air Narrative Exam Narrative: Gen - in no distress Ext / Skin - b/l lower leg venous stasis changes, Lt 3+, Rt 2+ edema, Lt erythema extensive CVS - RRR RS - normal respiratory effort Psych - lucid, normal mood Objective Imaging Venous US: Radiologist's impression: No findings of deep venous thrombosis in either lower extremity. Chest x-ray: My impression: Without infiltrates Labs 07/24/24 19:30 07/24/24 19:30 Labs: Laboratory Results - last 24 hr 07/24/24 07/24/24 07/25/24 19:30 23:30 00:25 WBC 12.5 H RBC 4.51 Hgb 11.2 L Hct 34.0 L MCV 75.3 L MCH 24.8 L MCHC 32.9 RDW 18.9 H Plt Count 306 Neut % (Auto) 76.3 H Lymph % (Auto) 14.4 L Gaines % (Auto) 6.0 Eos % (Auto) 2.9 Baso % (Auto) 0.4 Neut # (Auto) 9600 H Lymph # (Auto) 1800 Gaines # (Auto) 800 Eos # (Auto) 400 Baso # (Auto) 100 Sodium 138 Potassium 3.6 Chloride 94 L Carbon Dioxide 34 H BUN 24 H Creatinine 0.85 Estimated GFR > 60 BUN/Creatinine Ratio 28.2 H Glucose 109 Lactate 1.7 Calcium 9.1 Total Bilirubin 0.7 AST 25 ALT 21 Alkaline Phosphatase 118 NT-Pro-B Natriuret Pep 1210 H Total Protein 7.8 Albumin 4.3 Globulin 3.5 Albumin/Globulin Ratio 1.2 SARS-CoV-2 (PCR) Negative Influenza A (RT-PCR) Flu a negative Influenza B (RT-PCR) Flu b negative RSV (PCR) Negative Assessment & Plan Assessment and plan (1) Cellulitis of left leg: Status: Acute (2) Cellulitis of right leg: Status: Acute (3) COPD (chronic obstructive pulmonary disease): Qualifiers: COPD type: unspecified COPD Qualified Code(s): J44.9 - Chronic obstructive pulmonary disease, unspecified Status: Acute (4) Depression: Status: Acute (5) Hypothyroid: Status: Acute (6) Afib: Status: Acute Assessment & Plan narrative: Bilateral leg cellulitis, Lt > Rt - Rocephin, vancomycin - elevate legs CHF / PAF - torsemide, KCl - Eliquis, Cardizem COPD - Symbicort - DuoNeb DM / neuropathy - Lantus, metformin, Januvia, SS, CCD - Lyrica Chronic Pain - methadone, Oxycodone, Tizanidine Hypothyroidism - levothyroxine, liothyronine Depression / Insomnia - Zoloft, melatonin GERD - PPI Time-Based Coding :: [TOTAL MINUTES] spent with patient and on the chart (including review of chart, obtaining history, exam, reviewing outside data, placing orders, documenting exam and treatment plan, and counseling patient) on [DATE].
--- NOTE | 2024-07-25 05:07 | PC.WOUNDPHOT ---
excoriated bottom/buttocks
--- NOTE | 2024-07-25 05:08 | PC.WOUNDPHOT ---
left leg cellulitis
--- NOTE | 2024-07-25 05:53 | RT ---
patient placed on BIPAP w/ & 25% Fio2. Large mask used, tolerating settings well at this time. 96% Spo2
[2024-07-25] MEDS: OXYCODONE IR 10 MG TABLET PO ×2 (06:31→15:25)
[2024-07-25] MEDS: diphenhydrAMINE 25 MG TABLET 50 MG PO (06:32)
[2024-07-25] MEDS: PANTOPRAZOLE DR 20 MG TABLET PO (06:32)
[2024-07-25] MEDS: LEVOTHYROXINE 75 MCG TABLET 150 MCG PO (06:32)
[2024-07-25] MEDS: BUDESONIDE 0.5 MG/2 ML NEB INH ×2 (07:51→21:08)
[2024-07-25] MEDS: ALBUTEROL/IPRATROPIUM 3 ML AMPUL INH ×3 (07:51→21:08)
--- NOTE | 2024-07-25 07:58 | PC.NURSE ---
Pt transferred to rm 230 for BiPAP at approximately 0745. A&Ox4, lungs clear, O2 95% on RA, able to pivot from bed to new bed. Care ongoing.
--- NOTE | 2024-07-25 08:17 | PM.HP.IH.1 ---
History of Present Illness History of Present Illness Date Patient Seen: 07/25/24 Time Patient Seen: 07:43 Chief complaint: L Leg Pain Narrative: From the night hospitalist: 63 y/o with PMH of depression, chronic pain, on methadone and oxycodone, DM, COPD, hypothyroidism, GERD, and recurrent b/l leg cellulitis, presented with another episode. Her left leg is more affected and she complains on pain and tenderness. In the ED she was treated with Rocephin and vancomycin. Upon admission she developed itch possibly related to vancomycin. Not septic. Placed in observation for IV abx, supportive care. Interval history: The patient states she is comfortable. She has not eaten since lunch yesterday. She is hungry and interested in breakfast. She was moved to the ICU for BiPAP as her trilogy unit can not be used in the hospital. She notes that she was hospitalized last for cellulitis in December 2023, then more in the right leg. [facility] Medical History Afib Anxiety Asthma CHF (congestive heart failure) Chronic hypoxic respiratory failure COPD (chronic obstructive pulmonary disease) Depression Diabetes Diabetic nephropathy GERD (gastroesophageal reflux disease) Hypothyroid Obesity hypoventilation syndrome Surgical History History of incision and drainage Social History household members: none Smoking Status: Former smoker alcohol intake: never Meds Home Medications and Allergies Home Medications Medication Instructions Recorded Confirmed Type acetaminophen 500 mg tablet 1,000 mg BID PRN Pain (Scale Score 12/05/23 07/24/24 History 1-3) apixaban 5 mg tablet (Eliquis) 5 mg PO BID 12/05/23 07/24/24 History atorvastatin 40 mg tablet 40 mg PO DAILY 12/05/23 07/24/24 History benzonatate 100 mg capsule 100 mg PO DAILY PRN Cough 12/05/23 07/24/24 History digoxin 250 mcg (0.25 mg) tablet 250 mcg PO QPM 12/05/23 07/24/24 History diltiazem HCl 300 mg capsule,24 300 mg PO DAILY 12/05/23 07/24/24 History hr,extended release fluticasone propionate 50 2 spray intranasal DAILY ALLERGY 12/05/23 07/24/24 History mcg/actuation nasal spray,suspension guaifenesin 600 mg tablet, 600 mg PO BID 12/05/23 07/24/24 History extended release 12 hr insulin glargine 100 unit/mL (3 10 unit SUBCUT DAILY 12/05/23 07/24/24 History mL) subcutaneous pen (Lantus Solostar U-100 Insulin) levothyroxine 150 mcg tablet 150 mcg PO QAM 12/05/23 07/24/24 History liothyronine 25 mcg tablet 25 mcg PO QAM 12/05/23 07/24/24 History magnesium chloride 64 mg 64 mg PO DAILY 12/05/23 07/24/24 History tablet,extended release metformin 1,000 mg 24 hr 1,000 mg PO BID 12/05/23 07/24/24 History tablet,extended release (gastric reten.) omeprazole 20 mg capsule,delayed 20 mg PO DAILY 12/05/23 07/24/24 History release potassium chloride 20 mEq 20 meq PO BID 12/05/23 07/24/24 History tablet,extended release(part/cryst) sertraline 100 mg tablet 200 mg PO DAILY 12/05/23 07/24/24 History sitagliptin phosphate 50 mg tablet 50 mg PO DAILY 12/05/23 07/24/24 History (Januvia) tizanidine 4 mg tablet 4 mg PO Q6H PRN Muscle Spasm 12/05/23 07/24/24 History torsemide 20 mg tablet 40 mg PO BID 12/05/23 07/24/24 History ipratropium 0.5 mg-albuterol 3 mg 3 ml inhalation Q8HR 12/08/23 07/24/24 History (2.5 mg base)/3 mL nebulization soln ferrous sulfate 325 mg (65 mg 325 mg PO DAILY #30 tabs 12/12/23 07/24/24 Rx iron) tablet acetaminophen 325 mg tablet 650 mg (2 x 325 mg) PO Q6H PRN 01/10/24 07/24/24 Rx Fever/Mild Pain (1-3) #30 tabs linezolid 600 mg tablet 600 mg PO BID #40 tabs 01/10/24 07/24/24 Rx methadone 10 mg tablet 10 mg PO BID #60 tabs 01/10/24 07/24/24 Rx pregabalin 75 mg capsule 75 mg PO BID #60 caps 01/10/24 07/24/24 Rx budesonide-formoterol HFA 160 2 puff inhalation BID #10.2 grams 06/29/24 07/24/24 Rx mcg-4.5 mcg/actuation aerosol inhaler (Symbicort) Chewable Vitamin C 250 mg PO DAILY 07/24/24 07/24/24 History melatonin 10 mg tablet 10 mg PO BEDTIME 07/24/24 07/24/24 History oxycodone 10 mg tablet 10 mg PO Q6HR PRN Pain, Severe 07/24/24 07/24/24 History Allergies Allergy/AdvReac Type Severity Reaction Status Date / Time Sulfa (Sulfonamide Allergy Verified 07/24/24 19:18 Antibiotics) Review of Systems Review of Systems ROS: Yes All systems reviewed with the patient and are negative except as otherwise documented Exam Vital Signs (past 8 hours): - 07/24/24 23:30 07/25/24 00:00 07/25/24 00:30 Temperature Pulse Rate 97 H 92 H 90 Respiratory Rate 20 23 Blood Pressure Pulse Oximetry 95 93 92 Oxygen Delivery Method Room Air Oxygen Flow Rate Fraction of Inspired Oxygen 07/25/24 00:56 07/25/24 00:56 07/25/24 01:00 Temperature Pulse Rate 90 93 H Respiratory Rate 21 16 Blood Pressure 145/72 H Pulse Oximetry 94 93 Oxygen Delivery Method Oxygen Flow Rate Fraction of Inspired Oxygen 07/25/24 01:00 07/25/24 01:30 07/25/24 01:30 Temperature Pulse Rate 90 Respiratory Rate 21 Blood Pressure 145/65 H 142/67 H Pulse Oximetry 96 Oxygen Delivery Method Oxygen Flow Rate Fraction of Inspired Oxygen 07/25/24 01:59 07/25/24 03:00 07/25/24 03:03 Temperature Pulse Rate 93 H 89 Respiratory Rate 23 18 Blood Pressure 155/63 H Pulse Oximetry Oxygen Delivery Method Oxygen Flow Rate Fraction of Inspired Oxygen 07/25/24 04:14 07/25/24 05:34 07/25/24 05:43 Temperature 97.7 F Pulse Rate 76 Respiratory Rate 18 Blood Pressure 138/72 Pulse Oximetry 98 Oxygen Delivery Method Nasal Cannula Oxygen Flow Rate 1 Fraction of Inspired Oxygen 07/25/24 07:52 Temperature Pulse Rate Respiratory Rate Blood Pressure Pulse Oximetry Oxygen Delivery Method Oxygen Flow Rate Fraction of Inspired Oxygen 25 Fraction of Inspired Oxygen 25 Oxygen Delivery Method Nasal Cannula Oxygen Flow Rate 1 Narrative Exam Narrative: GENERAL: This is a well-nourished, well-developed patient, in no apparent distress. HEAD: Atraumatic. Normocephalic. No temporal or scalp tenderness. EYES: Pupils equal round and reactive. Extraocular motions intact. No scleral icterus. No injection or drainage. ENT: Mucous membranes pink and moist. NECK: Trachea midline. No JVD, bruits or lymphadenopathy. Supple, nontender, no meningeal signs. CARDIOVASCULAR: Regular rate and rhythm without murmurs, gallops, or rubs. RESPIRATORY: Clear to auscultation. GASTROINTESTINAL: Abdomen soft, non-tender, nondistended. EXTREMITIES: Left leg with erythema and tenderness from the ankle to just below the knee. BACK: Nontender without deformity or crepitance. No flank tenderness. NEUROLOGIC: Alert, oriented, speech fluent, full upper and lower motor strength, no focal deficits evident. DERMATOLOGIC: No rashes or skin lesions. Objective Imaging Chest x-ray: My impression: No focal infiltrates. Radiologist's impression: Pending Labs 07/24/24 19:30 07/24/24 19:30 Labs: Laboratory Results - last 24 hr 07/24/24 07/24/24 07/25/24 19:30 23:30 00:25 WBC 12.5 H RBC 4.51 Hgb 11.2 L Hct 34.0 L MCV 75.3 L MCH 24.8 L MCHC 32.9 RDW 18.9 H Plt Count 306 Neut % (Auto) 76.3 H Lymph % (Auto) 14.4 L [place] % (Auto) 6.0 Eos % (Auto) 2.9 Baso % (Auto) 0.4 Neut # (Auto) 9600 H Lymph # (Auto) 1800 [place] # (Auto) 800 Eos # (Auto) 400 Baso # (Auto) 100 Sodium 138 Potassium 3.6 Chloride 94 L Carbon Dioxide 34 H BUN 24 H Creatinine 0.85 Estimated GFR > 60 BUN/Creatinine Ratio 28.2 H Glucose 109 Lactate 1.7 Calcium 9.1 Total Bilirubin 0.7 AST 25 ALT 21 Alkaline Phosphatase 118 NT-Pro-B Natriuret Pep 1210 H Total Protein 7.8 Albumin 4.3 Globulin 3.5 Albumin/Globulin Ratio 1.2 SARS-CoV-2 (PCR) Negative Influenza A (RT-PCR) Flu a negative Influenza B (RT-PCR) Flu b negative RSV (PCR) Negative Assessment & Plan Assessment & Plan narrative: Bilateral leg cellulitis, Lt > Rt - Rocephin, vancomycin - elevate legs CHF / PAF - torsemide, KCl - Eliquis, Cardizem COPD - Symbicort - DuoNeb DM / neuropathy - Lantus, metformin, Januvia, SS, CCD - Lyrica Chronic Pain - methadone, Oxycodone, Tizanidine Hypothyroidism - levothyroxine, liothyronine Depression / Insomnia - Zoloft, melatonin GERD - PPI Quality VTE Deep Vein Thrombosis/Pulmonary Embolism Present on Admission: No MIPS - Admit I confirm the patient?s Advance Care Plan is present, Code status is documented, Surrogate decision maker is in patient?s record [If Yes, STOP here]: Yes MIPS - Meds 'Current medications' to include all prescriptions, [id number] products, herbals, cannabis/cannabidiol products, and vitamin/mineral/dietary (nutritional) supplements. I have utilized all available resources to obtain, update, or review the patient?s current medications. [If Yes, STOP here]: Yes [employer] Inspector Document charge(s): No Charge Codes Initial inpatient/observation care: [id number]
[2024-07-25] MEDS: ATORVASTATIN 20 MG TABLET 40 MG PO (08:38)
[2024-07-25] MEDS: PREGABALIN 75 MG CAPSULE PO ×2 (08:38→20:20)
[2024-07-25] MEDS: SERTRALINE 50 MG TABLET 200 MG PO (08:38)
[2024-07-25] MEDS: TORSEMIDE 10 MG TABLET 40 MG PO ×2 (08:39→20:21)
[2024-07-25] MEDS: LIOTHYRONINE 5 MCG TABLET 25 MCG PO (08:39)
[2024-07-25] MEDS: APIXABAN 5 MG TABLET PO ×2 (08:39→20:19)
[2024-07-25] MEDS: METFORMIN XR 500 MG TABLET 1000 MG PO ×2 (08:39→20:21)
[2024-07-25] MEDS: dilTIAZem CD 180 MG CAP PO (08:39)
[2024-07-25] MEDS: dilTIAZem CD 120 MG CAP PO (08:39)
[2024-07-25] MEDS: SITAGLIPTIN 50 MG TABLET PO (08:39)
[2024-07-25] MEDS: POTASSIUM CHLORIDE 20 MEQ TAB PO ×2 (08:39→17:55)
[2024-07-25 08:51] LABS: Add Manual Diff / Slide Review NO; Basophils Absolute Auto 100 /uL (0-100); Basophils Percent Auto 0.7 % (0-2); Eosinophils Absolute Auto 400 /uL (0-450); Eosinophils Percent Auto 3.5 % (2-4); Hematocrit 32.7 % (36-46); Hemoglobin 10.7 g/dL (12.0-16.0); Lymphocytes Absolute Auto 2000 /uL (1100-4500); Lymphocytes Percent Auto 17.7 % (25-40); Mean Corpuscular HGB Conc 32.6 % (30-36); Mean Corpuscular Hemoglobin 24.6 PG (26-34); Mean Corpuscular Volume 75.5 fL (80-100); Monocytes Absolute Auto 700 /uL (0-900); Monocytes Percent Auto 6.6 % (3-14); Neutrophils Absolute Auto 8000 /uL (1500-7000); Neutrophils Percent Auto 71.5 % (50-75); Platelet Count 280 X10^3/uL (150-400); Red Blood Cell Count 4.33 X10^6/uL (4.0-5.2); Red Cell Distribution Width 19.1 % (11.6-14.8); White Blood Cell Count 11.1 X10^3/uL (4.5-11.0)
[2024-07-25 09:01] LABS: BUN Creatinine Ratio 28.9 (6-22); Blood Urea Nitrogen 24 mg/dL (7-17); Calcium 8.9 mg/dL (8.4-10.2); Carbon Dioxide 36 mmol/L (22-32); Chloride 95 mmol/L (98-107); Estimated Glomerular Filt Rate > 60 mL/min (>60); Glucose 126 mg/dL (80-110); HEMOLYSIS < 15 (0-50); Potassium 3.5 mmol/L (3.4-5.1); Sodium 138 mmol/L (137-145)
[2024-07-25 09:58] LABS: Hemoglobin A1C% w Est Avg Glu 6.4 % (4.0-6.0)
[2024-07-25] MEDS: METHADONE 10 MG TABLET PO ×2 (12:19→20:36)
[2024-07-25] MEDS: VANCOMYCIN 1,250 MG/250 ML PIGGYBACK 166.667 MG IV (12:19)
[2024-07-25] MEDS: POTASSIUM CHLORIDE 20 MEQ TAB 40 MEQ PO (12:19)
--- NOTE | 2024-07-25 13:10 | CM.DANOTE ---
Patient is a 63 yo female who was admitted OBS Status on 07/25/24 today for Recurrent leg Cellulitis. Pt has [facility] and [facility] for insurance and her PCP is Graciela Abdi. EMR was reviewed. Per MD, pt with hx of depression and chronic pain on methadone, COPD and DM and admitted for recurrent leg cellulitis and getting IV-Abx and currently on bipap as her home trilogy not able to be used in the hospital. Not yet medically stable to d/c as pt just admitted early this AM. SW met bedside with pt and explained role and pt confirms she still lives at [facility] in [place] and mostly has assist for meds and meals. Pt has been mostly w/c bound and has been completing her own transfers to w and showering/hygiene herself. Pt has Dtr/GABBIE Leyva and family who live on [address] as well and is at [place] under her Medicaid. Pt confirms that she is currently open with [facility] for RN/PT and would like to Resume HH at d/. Pt has hx of [facility] after her admission to [facility] for osteo a couple years ago and was at [facility] for SNF rehab after admission in Dec 2023. Pt also had home infusion for [facility] IV-Abx previously when she lived in her own home but not since moving into [facility]. Pt confirms that she does not feel she needs SNF at d/ as last admission she ended up with wound vac and need for IV-Abx. Pt preference is to return to [place] with [facility] at discharge. SW faxed [facility] clinicals to review for likely d/c back Fri or and also faxed [facility] clinicals to determine if Resumption vs new orders and F2F needed as pt only Observation Status. Plan: SW to follow closely Friday with [facility] and [facility] to confirm safe plan of return and determine if family, facility, or maybe Medicaid taxi needed for transport home. ROAMN Fermin Discharge Planning/Care Management CM Discharge Assessment Start: 07/25/24 13:03 Freq: Status: Active Protocol: Document 07/25/24 13:03 BF (Rec: 07/25/24 13:09 BF [id number]) Discharge Planning Assessment Assigned Sand Technologist Hannah, PROFESSOR OF SPORT MANAGEMENT DPOA/Assigned Designee Name Dtr Autumn Contact Information [phone] Advance Directives? No Advance Directives on File No History Provided By Patient,Medical Record Has Patient been admitted in last 30 No days? Comment last admit in Dec 2023 and went to [facility] Prior Living Arrangements Assisted Living Comment From [facility] Household Members none Type of transporation used prior to Relies on Others admit Facility Name Admitted From: [facility] Willing to Return to Facility? Yes Independent with ADL's No: gets some assist at [place] Is patient alert and oriented? Yes Needs Assistance With Bathing,Meal Prep,Managing Medications,Home Chores / Shopping Caregiver for Another No Community Services used prior to Physical Therapy,Home Health admission: Nurse Comment Open with [facility] RN/PT DME Already Rented / Owned Wheelchair Comment Trilogy at baseline at home Patient/Family Preference Retirement Facility Barriers to Discharge No Discharge Plan Assisted Living Facility Community Services Physical Therapy,Home Health Nurse Transportation Arrangement likely facility van or family or maybe Medicaid transport if she has benefits Referrals Initiated Home Health Additional Comment Resumption of [facility] RN/PT Whiteboard Updated in Patient Room with Yes name and ext. # of Sand Technologist Review Status In Process Please Provide Date Initial DC 07/25/24 Assessment Was Performed Next Review Type Continued Stay Review
[2024-07-25] MEDS: DIGOXIN 0.125 MG TABLET 0.25 MG PO (17:55)
[2024-07-25] MEDS: ALBUTEROL 2.5 MG/3 ML NEB (ADULT) INH (19:15)
[2024-07-25] MEDS: MELATONIN 3 MG TABLET 9 MG PO (20:21)
[2024-07-25] MEDS: INSULIN GLARGINE 100 UNIT/ML 3ML PEN 10 UNIT SUBCUT (21:04)
[2024-07-26] VITALS (62 sets, daily range): BP systolic 117–141; BP diastolic 53–63; PULSE 77–95; RESP 10–40; TEMP 24–36.8; O2SAT 90–99
[2024-07-26] MEDS: diphenhydrAMINE 50 MG/ML VIAL 25 MG IV (00:25)
[2024-07-26] MEDS: VANCOMYCIN 1,250 MG/250 ML PIGGYBACK 166.667 MG IV ×2 (00:25→13:33)
[2024-07-26 05:21] LABS: BUN Creatinine Ratio 26.4 (6-22); Blood Urea Nitrogen 24 mg/dL (7-17); Calcium 8.7 mg/dL (8.4-10.2); Carbon Dioxide 35 mmol/L (22-32); Chloride 96 mmol/L (98-107); Estimated Glomerular Filt Rate > 60 mL/min (>60); Glucose 119 mg/dL (80-110); HEMOLYSIS < 15 (0-50); Potassium 3.8 mmol/L (3.4-5.1); Sodium 139 mmol/L (137-145)
[2024-07-26] MEDS: ALBUTEROL/IPRATROPIUM 3 ML AMPUL INH ×3 (07:47→18:46)
[2024-07-26] MEDS: BUDESONIDE 0.5 MG/2 ML NEB INH ×2 (07:47→18:46)
[2024-07-26] MEDS: LEVOTHYROXINE 75 MCG TABLET 150 MCG PO (08:22)
[2024-07-26] MEDS: POTASSIUM CHLORIDE 20 MEQ TAB PO ×2 (08:23→17:17)
[2024-07-26] MEDS: LIOTHYRONINE 5 MCG TABLET 25 MCG PO (08:23)
[2024-07-26] MEDS: ATORVASTATIN 20 MG TABLET 40 MG PO (08:23)
[2024-07-26] MEDS: APIXABAN 5 MG TABLET PO ×2 (08:23→20:38)
[2024-07-26] MEDS: dilTIAZem CD 120 MG CAP PO (08:23)
[2024-07-26] MEDS: dilTIAZem CD 180 MG CAP PO (08:23)
[2024-07-26] MEDS: PANTOPRAZOLE DR 20 MG TABLET PO (08:23)
--- NOTE | 2024-07-26 08:23 | PM.PN.1 ---
Subjective Subjective Interval history: S: Her left leg is improving but is still quite red, and tender. She still feels sick. Exam Vital Signs (past 8 hours): - 07/26/24 00:30 07/26/24 01:00 07/26/24 01:30 Temperature Pulse Rate 81 83 85 Respiratory Rate Blood Pressure Pulse Oximetry 98 97 98 Oxygen Delivery Method Oxygen Flow Rate Fraction of Inspired Oxygen 07/26/24 01:54 07/26/24 02:00 07/26/24 02:30 Temperature Pulse Rate 86 82 Respiratory Rate Blood Pressure Pulse Oximetry 98 98 Oxygen Delivery Method Oxygen Flow Rate Fraction of Inspired Oxygen 07/26/24 03:00 07/26/24 03:30 07/26/24 04:00 Temperature 97.0 F L Pulse Rate 77 81 85 Respiratory Rate 16 Blood Pressure 117/53 L Pulse Oximetry 98 98 97 Oxygen Delivery Method Oxygen Flow Rate 0 Fraction of Inspired Oxygen 07/26/24 04:00 07/26/24 04:30 07/26/24 04:45 Temperature Pulse Rate 84 82 Respiratory Rate Blood Pressure 117/53 L Pulse Oximetry 98 98 Oxygen Delivery Method Oxygen Flow Rate Fraction of Inspired Oxygen 07/26/24 04:45 07/26/24 05:00 07/26/24 05:30 Temperature Pulse Rate 84 87 82 Respiratory Rate Blood Pressure Pulse Oximetry 97 98 98 Oxygen Delivery Method Oxygen Flow Rate Fraction of Inspired Oxygen 07/26/24 06:00 07/26/24 06:10 07/26/24 06:30 Temperature Pulse Rate 90 88 Respiratory Rate Blood Pressure 117/53 L Pulse Oximetry 98 98 Oxygen Delivery Method Oxygen Flow Rate Fraction of Inspired Oxygen 07/26/24 07:47 Temperature Pulse Rate 86 Respiratory Rate 18 Blood Pressure Pulse Oximetry 94 Oxygen Delivery Method Room Air Oxygen Flow Rate 0 Fraction of Inspired Oxygen 21 Fraction of Inspired Oxygen 21 SaO2/FiO2 Ratio 447 Oxygen Delivery Method Room Air Oxygen Flow Rate 0 Narrative Exam Narrative: NAD, alert and oriented. Fluent speech. Obese. Lungs are clear, normal rate and effort. Heart is regular, no murmur gallop or rub. Abdomen is soft, non distended. Extremities are both swollen and the left leg is still red and fairly warm as well as tender to touch. Objective Labs 07/25/24 08:30 07/26/24 04:26 Labs: Laboratory Results - last 24 hr 07/25/24 07/26/24 08:30 04:26 WBC 11.1 H RBC 4.33 Hgb 10.7 L Hct 32.7 L MCV 75.5 L MCH 24.6 L MCHC 32.6 RDW 19.1 H Plt Count 280 Neut % (Auto) 71.5 Lymph % (Auto) 17.7 L [place] % (Auto) 6.6 Eos % (Auto) 3.5 Baso % (Auto) 0.7 Neut # (Auto) 8000 H Lymph # (Auto) 2000 [place] # (Auto) 700 Eos # (Auto) 400 Baso # (Auto) 100 Sodium 138 139 Potassium 3.5 3.8 Chloride 95 L 96 L Carbon Dioxide 36 H 35 H BUN 24 H 24 H Creatinine 0.83 0.91 Estimated GFR > 60 > 60 BUN/Creatinine Ratio 28.9 H 26.4 H Glucose 126 H 119 H Hemoglobin A1c 6.4 H Calcium 8.9 8.7 PFSH Medical History Asthma Obesity hypoventilation syndrome Chronic hypoxic respiratory failure Anxiety Depression CHF (congestive heart failure) COPD (chronic obstructive pulmonary disease) Diabetic nephropathy GERD (gastroesophageal reflux disease) Hypothyroid Afib Diabetes Surgical History History of incision and drainage Social History household members: none Smoking Status: Former smoker alcohol intake: never Assessment & Plan Assessment & Plan narrative: Bilateral leg cellulitis, Lt > Rt. Present on admission and active. - Rocephin, vancomycin - elevate legs CHF, present on admission and stable. - torsemide, KCl - Eliquis, Cardizem PAF, present on admission and stable. COPD, present on admission and stable. - Symbicort - DuoNeb DM2 with neuropathy, present on admission and stable. - Lantus, metformin, Januvia, SS, CCD - Lyrica Chronic pain, present on admission and stable. - methadone, Oxycodone, Tizanidine Continuous opiate dependence, present on admission and stable. Hypothyroidism, present on admission and stable. - levothyroxine, liothyronine Depression and Insomnia, present on admission and stable. - Zoloft, melatonin GERD, present on admission and stable. - PPI PLAN: -given severity of her chronic edema and left leg infection, she will require another midnight of IV antibiotics. DELMY: 07/27. Time-Based Coding :: [TOTAL MINUTES] spent with patient and on the chart (including review of chart, obtaining history, exam, reviewing outside data, placing orders, documenting exam and treatment plan, and counseling patient) on [DATE]. Quality VTE Deep Vein Thrombosis/Pulmonary Embolism Present on Admission: No
[2024-07-26] MEDS: METFORMIN XR 500 MG TABLET 1000 MG PO ×2 (08:24→20:38)
[2024-07-26] MEDS: SITAGLIPTIN 50 MG TABLET PO (08:24)
[2024-07-26] MEDS: METHADONE 10 MG TABLET PO ×2 (08:24→20:38)
[2024-07-26] MEDS: PREGABALIN 75 MG CAPSULE PO ×2 (08:24→20:38)
[2024-07-26] MEDS: TORSEMIDE 10 MG TABLET 40 MG PO ×2 (08:24→20:37)
[2024-07-26] MEDS: SERTRALINE 50 MG TABLET 200 MG PO (08:24)
[2024-07-26] MEDS: OXYCODONE IR 10 MG TABLET PO ×3 (08:29→20:38)
--- NOTE | 2024-07-26 12:45 | CM.DPC ---
DCP Cont: Per MD, pt could still benefit from IV abx for her cellulitis as still warm and red and not yet stable to d/c yet today but likely tomorrow Tues. MARTIN met bedside with pt and explained role again and discussed likely d/c tomorrow Tues if stable and she confirms [facility] does not provide transport home and that sometimes her Dtr will transport but has to work tomorrow and pt confirms she has Medicaid Transport Benefits and would prefer for this to be arranged at d/c. SW attempted to contact [facility] but phone continues to disconnect and SW emailed [email or web address] [place] and updated on clinicals faxed this weekend and today to review for plan of d/c back tomorrow Tues and also if any new meds do they still need to be faxed to [facility]? SW completed the Medicaid Transportation form and confirmed she has transport benefits and LINDY Forrester kindly faxed to [facility] towards setting up w/c van for tomorrow Tues around 1300. [facility] confirms they are currently open with pt for services and will just need Resumption Orders at d/c. Call from [facility] stating pt is currently on their services as well and just requesting d/c summary at discharge. Plan: SW to follow for return call from Medicaid Transport to confirm cabulance for tomorrow and return call from [facility] to determine pharmacy for new meds. SW to fax HH Resumption Orders and d/c summary to [facility] and d/c summary to [facility] at discharge. Hannah Squires MSW
[2024-07-26 13:27] LABS: Vancomycin Trough 13.6 ug/mL (10-20)
[2024-07-26] MEDS: DIGOXIN 0.125 MG TABLET 0.25 MG PO (17:17)
[2024-07-26] MEDS: SODIUM CHLORIDE 0.9% FLUSH 10 ML IV (20:37)
[2024-07-26] MEDS: MELATONIN 3 MG TABLET 9 MG PO (20:38)
[2024-07-26] MEDS: INSULIN GLARGINE 100 UNIT/ML 3ML PEN 10 UNIT SUBCUT (20:44)
[2024-07-26] MEDS: cefTRIAXone 1,000 MG in SODIUM CHLORIDE 0.9% 100 ML 200 MG IV (22:30)
[2024-07-26] MEDS: ALBUTEROL 2.5 MG/3 ML NEB (ADULT) INH (22:58)
[2024-07-27] VITALS (13 sets, daily range): BP systolic 126–132; BP diastolic 56–62; PULSE 67–86; RESP 10–20; TEMP 36.1–36.7; O2SAT 94–99
[2024-07-27] MEDS: diphenhydrAMINE 50 MG/ML VIAL 25 MG IV (00:44)
[2024-07-27] MEDS: VANCOMYCIN 1,250 MG/250 ML PIGGYBACK 166 MG IV (01:03)
[2024-07-27 05:20] LABS: BUN Creatinine Ratio 24.7 (6-22); Blood Urea Nitrogen 22 mg/dL (7-17); Calcium 8.9 mg/dL (8.4-10.2); Carbon Dioxide 35 mmol/L (22-32); Chloride 96 mmol/L (98-107); Estimated Glomerular Filt Rate > 60 mL/min (>60); Glucose 114 mg/dL (80-110); HEMOLYSIS < 15 (0-50); Potassium 3.8 mmol/L (3.4-5.1); Sodium 138 mmol/L (137-145)
[2024-07-27] MEDS: BUDESONIDE 0.5 MG/2 ML NEB INH (08:20)
[2024-07-27] MEDS: ALBUTEROL/IPRATROPIUM 3 ML AMPUL INH (08:20)
[2024-07-27] MEDS: PREGABALIN 75 MG CAPSULE PO (08:34)
[2024-07-27] MEDS: METHADONE 10 MG TABLET PO (08:35)
[2024-07-27] MEDS: TORSEMIDE 10 MG TABLET 40 MG PO (08:35)
[2024-07-27] MEDS: PANTOPRAZOLE DR 20 MG TABLET PO (08:35)
[2024-07-27] MEDS: METFORMIN XR 500 MG TABLET 1000 MG PO (08:35)
[2024-07-27] MEDS: LIOTHYRONINE 5 MCG TABLET 25 MCG PO (08:35)
[2024-07-27] MEDS: SITAGLIPTIN 50 MG TABLET PO (08:36)
[2024-07-27] MEDS: POTASSIUM CHLORIDE 20 MEQ TAB PO (08:36)
[2024-07-27] MEDS: dilTIAZem CD 120 MG CAP PO (08:36)
[2024-07-27] MEDS: APIXABAN 5 MG TABLET PO (08:36)
[2024-07-27] MEDS: dilTIAZem CD 180 MG CAP PO (08:36)
[2024-07-27] MEDS: SERTRALINE 50 MG TABLET 200 MG PO (08:36)
[2024-07-27] MEDS: ATORVASTATIN 20 MG TABLET 40 MG PO (08:36)
[2024-07-27] MEDS: SODIUM CHLORIDE 0.9% FLUSH 10 ML IV (10:04)
[2024-07-27] MEDS: FUROSEMIDE 40 MG/4 ML VIAL IV (10:04)
[2024-07-27] MEDS: cefTRIAXone 2,000 MG in SODIUM CHLORIDE 0.9% 100 ML 200 MG IV (10:04)
--- NOTE | 2024-07-27 10:17 | PM.DS.1 ---
History of Present Illness History of Present Illness Chief complaint: L Leg Pain Narrative: From H&P: 63 y/o with PMH of depression, chronic pain, on methadone and oxycodone, DM, COPD, hypothyroidism, GERD, and recurrent b/l leg cellulitis, presented with another episode. Her left leg is more affected and she complains on pain and tenderness. In the ED she was treated with Rocephin and vancomycin. Upon admission she developed itch possibly related to vancomycin. Not septic. Placed in observation for IV abx, supportive care. Discharge Providers Provider Date of admission: 07/25/24 03:11 Discharge Date: 07/27/24 Primary care physician: Graciela Abdi MD Consults: None. Discharge provider: Jewel Salmeron MD Summary Hospital Course Discharge Diagnosis: 1. Bilateral leg cellulitis, Lt > Rt. Present on admission and improved. - treated with Rocephin, vancomycin. - Nares MRSA positive. 2. CHF, present on admission and stable. 3. PAF, present on admission and stable. 4. COPD, present on admission and stable. 5. DM2 with neuropathy, present on admission and stable. 6. Chronic pain, present on admission and stable. 7. Continuous opiate dependence, present on admission and stable. 8. Hypothyroidism, present on admission and stable. 9. Depression and Insomnia, present on admission and stable. 10. GERD, present on admission and stable. Hospital Course: She was admitted for cellulitis and treated with leg elevation and IV ceftriaxone and vancomycin. She did have slow improvement. She does have a positive nares MRSA in the past. In the day of discharge her leg was essentially close to baseline. She was felt to be stable for discharge home with oral antibiotics at her assisted living facility. Ongoing leg elevation is recommended. Status at Discharge Cognitive/behavioral status at discharge: oriented Functional status at discharge: independent ambulation Overall status at discharge: patient is back to baseline Time Spent with Patient Time spent: Greater than 30 minutes Exam Vital Signs (past 8 hours): - 07/27/24 02:30 07/27/24 04:00 07/27/24 04:29 Temperature 97.0 F L Pulse Rate 75 85 Respiratory Rate 12 Blood Pressure 126/61 126/61 Pulse Oximetry 98 98 Oxygen Delivery Method Oxygen Flow Rate 0 Fraction of Inspired Oxygen 07/27/24 06:14 07/27/24 08:00 07/27/24 08:28 Temperature 98.1 F Pulse Rate Respiratory Rate Blood Pressure Pulse Oximetry 95 Oxygen Delivery Method Room Air Oxygen Flow Rate Fraction of Inspired Oxygen 25 Fraction of Inspired Oxygen 25 SaO2/FiO2 Ratio 452 Oxygen Delivery Method Room Air Oxygen Flow Rate 0 Narrative Exam Narrative: NAD, alert and oriented. Fluent speech. Lungs are clear, normal rate and effort. Heart is regular, no murmur gallop or rub. Abdomen is soft, non distended. Extremities are notable for 1 to 2+ edema which is chronic, the redness of the left leg is essentially resolved. Objective Imaging Multiple studies:: Radiologist's impression: CXR: Mild bilateral interstitial prominence may be secondary to mild edema versus an atypical or viral pneumonia. Leg US: No findings of deep venous thrombosis in either lower extremity. Labs 07/25/24 08:30 07/27/24 04:18 Labs: Laboratory Results - last 24 hr 07/26/24 07/27/24 12:53 04:18 Sodium 138 Potassium 3.8 Chloride 96 L Carbon Dioxide 35 H BUN 22 H Creatinine 0.89 Estimated GFR > 60 BUN/Creatinine Ratio 24.7 H Glucose 114 H Calcium 8.9 Vancomycin Trough 13.6 PFSH Medical History Asthma Obesity hypoventilation syndrome Chronic hypoxic respiratory failure Anxiety Depression CHF (congestive heart failure) COPD (chronic obstructive pulmonary disease) Diabetic nephropathy GERD (gastroesophageal reflux disease) Hypothyroid Afib Diabetes Surgical History History of incision and drainage Social History household members: none Smoking Status: Former smoker alcohol intake: never Discharge Assessment & Plan Assessment and Plan Assessment: 1. Bilateral leg cellulitis, Lt > Rt. Present on admission and improved. - treated with Rocephin, vancomycin. - Nares MRSA positive. Plan of Treatment: Discharge home with an additional 7 days of doxycycline 100 b.i.d. and cephalexin 500 q.i.d.. Leg elevation is encouraged. Discharge Plan Discharge Plan Patient Disposition: Home Health Service Transfer to: [facility] Discharge Comment: Stable for discharge home on, we will continue Cephalexin QID for an additional 7 days. Discharge orders & Medications Prescriptions: New cephalexin 500 mg capsule 500 mg PO QID Qty: 28 0RF doxycycline hyclate 100 mg capsule 100 mg PO BID Qty: 14 0RF Continued atorvastatin 40 mg tablet 40 mg PO DAILY digoxin 250 mcg (0.25 mg) tablet 250 mcg PO QPM diltiazem HCl 300 mg capsule,extended release 24 hr 300 mg PO DAILY Eliquis 5 mg tablet 5 mg PO BID fluticasone propionate 50 mcg/actuation spray,suspension 2 spray intranasal DAILY insulin glargine [Lantus Solostar U-100 Insulin] 100 unit/mL (3 mL) insulin pen 10 unit SUBCUT DAILY Patient Comments: [NO ORIGINAL SIG] guaifenesin 600 mg Tablet Extended Release 12hr 600 mg PO BID Januvia 50 mg tablet 50 mg PO DAILY levothyroxine 150 mcg tablet 150 mcg PO QAM liothyronine 25 mcg tablet 25 mcg PO QAM magnesium chloride 64 mg Tablet Extended Release 64 mg PO DAILY metformin 1,000 mg tablet,ER douglas.retention 24 hr 1,000 mg PO BID potassium chloride 20 mEq tablet,ER particles/crystals 20 meq PO BID sertraline 100 mg tablet 200 mg PO DAILY Rx Instructions: daily in the morning torsemide 20 mg tablet 40 mg PO BID Rx Instructions: takes it at noon acetaminophen 500 mg Tablet 1,000 mg BID PRN (Reason: Pain (Scale Score 1-3)) Rx Instructions: either regular or extra strength not both benzonatate 100 mg Capsule 100 mg PO DAILY PRN (Reason: Cough) tizanidine 4 mg tablet 4 mg PO Q6H PRN (Reason: Muscle Spasm) ipratropium-albuterol 0.5 mg-3 mg(2.5 mg base)/3 mL Solution For Nebulization 3 ml INHALATION Q8HR ferrous sulfate 325 mg (65 mg iron) tablet 325 mg PO DAILY Qty: 30 0RF acetaminophen 325 mg Tablet 650 mg PO Q6H PRN (Reason: Fever/Mild Pain (1-3)) Qty: 30 0RF Rx Instructions: either regular or extra strength not both methadone 10 mg tablet 10 mg PO BID Qty: 60 0RF pregabalin 75 mg capsule 75 mg PO BID Qty: 60 0RF melatonin 10 mg Tablet 10 mg PO BEDTIME oxycodone 10 mg tablet 10 mg PO Q6HR PRN (Reason: Pain, Severe) Chewable Vitamin C 250 mg 250 mg PO DAILY omeprazole 40 mg capsule,delayed release(DR/EC) 40 mg PO DAILY budesonide-formoterol [Symbicort] 160-4.5 mcg/actuation HFA aerosol inhaler 2 puff inhalation BID Qty: 10.2 5RF Discontinued linezolid 600 mg tablet 600 mg PO BID Qty: 40 0RF Follow up/Referrals: Graciela Abdi MD [Primary Care Provider] - Diet/Activity/Treatments Diet: Carb-consistent/Diabetic Activity: Elevation of legs as much as tolerated. Skin/Wound/Dressing Care Report to your healthcare provider any signs of infection, such as:: chills, fever, increased pain, unusual drainage and unusual redness Visit Report/Discharge Packet Instructions: DI for Cellulitis -- Adult, How to Prevent Falls, DI for Prescription Opioid Use Stand Alone Forms: Patient Portal/API, Stroke Signs & Symptoms Discharge Data Primary Care Provider: Graciela Abdi Attending Provider: Joshua Broderick Admit Date/Time: 07/25/24 03:11 Quality VTE Deep Vein Thrombosis/Pulmonary Embolism Present on Admission: No
--- NOTE | 2024-07-27 13:31 | PC.NURSE ---
Pt agreeable to discharge. Assisted in bed bath, changing into own gown. Personal items gathered. Education provided on stroke s/s, CHF worsening symptoms, follow up with PCP, and medication management. Pt SBA to medicaid transportation w/c. Wheeled to transportation at approximately 1325.
--- NOTE | 2024-07-27 13:36 | CM.DPNOTE ---
DCP Note [employer] reviewed EMR Per chart review/provider, pt cleared to dc home with [facility] resumption today. Per Maryjane RN at [facility] (p [phone] f [phone]) can take pt back, want dc summary at dc. [employer]ER faxed dc summary. Per Brea at [facility], MEdicaid transport set up with [employer] at 1300. [employer] OFFICER met with pt in room. pt agreed to dc with [facility] resumption. denied questions. [employer] OFF[employer]ER faxed dc summary to Niru Saenz (f [phone]). [employer]ER updated RN. P: pt to dc today at 1300 via [employer] med[employer] transport to [facility] with [facility] to follow. CM team will continue to follow as needed ROMAN Black
--- NOTE | 2024-08-27 07:34 | PC.NURSE ---
LATE ENTRY for July 27 2024: Antibiotic ceftriaxone IV antibiotic completed at approximately 1200. Pt discharged after the discontinuation of antibiotic.
== END 2024-07-27 13:25 | disposition home health service (06) ==
LOC: ED 23:15 → AC 07-25 03:12 → ICU 07-25 07:58
PROVIDERS: Pharmacist Pharmacist Clinician (PhC)/ Clinical Pharmacy Specialist; Admitting Provider Internal Medicine; Emergency Provider Emergency Medicine; PCP Family Medicine; Referring Provider Emergency Medicine; Visit Provider Internal Medicine
DX: L03.116 Cellulitis of left lower limb (principal); L03.115 Cellulitis of right lower limb; Z22.322 Carrier or suspected carrier of Methicillin resistant Staphylococcus aureus; J44.9 Chronic obstructive pulmonary disease, unspecified; F32.A Depression, unspecified; E03.9 Hypothyroidism, unspecified; I48.91 Unspecified atrial fibrillation; E66.01 Morbid (severe) obesity due to excess calories; Z68.43 Body mass index [BMI] 50.0-59.9, adult; I50.9 Heart failure, unspecified; E11.40 Type 2 diabetes mellitus with diabetic neuropathy, unspecified; G89.29 Other chronic pain; G47.00 Insomnia, unspecified; K21.9 Gastro-esophageal reflux disease without esophagitis; F11.20 Opioid dependence, uncomplicated; Z79.4 Long term (current) use of insulin; Z87.891 Personal history of nicotine dependence; R05.9 Cough, unspecified
CPT/HCPCS: 0241U; 36415; 71045; 80048; 80053; 80202; 82962; 83036; 83605; 83880; 85025; 87040; 93970; 94640; 94660; 96365; 96366; 96367; 96372; 96375; 96376; 99284; G0378; J0696; J1171; J1200; J1815; J1940; J7613

== ENCOUNTER 2025-01-11 18:30 | Emergency (ER) | payer MEDICARE, MEDICAID, SELFPAY ==
[2024-07-25 04:29] VITALS: BMI 50.5
[2024-07-27 06:14] VITALS: PULSE 67; RESP 19; O2SAT 99
[2025-01-11] VITALS (10 sets, daily range): BP systolic 122–155; BP diastolic 66–68; PULSE 77–88; RESP 15–24; TEMP 37; O2SAT 86–97; BMI 48.4
--- NOTE | 2025-01-11 18:59 | DI.CT.S_ITS ---
PROCEDURE: CT ABDOMEN PELVIS W CON INDICATIONS: PAIN TECHNIQUE: After the administration of intravenous contrast, axial sections acquired from the lung bases to the pubic symphysis. Coronal and sagittal reformats were performed. For radiation dose reduction, the following was used: automated exposure control, adjustment of mA and/or kV according to patient size. COMPARISON: None. FINDINGS: Image quality: Diagnostic. Lower Chest: No significant findings. ABDOMEN: Liver: There is hepatomegaly measuring 25 cm in vertical diameter. Slight contour nodularity as well as prominence of the lateral segment of the left hepatic lobe. No definite focal lesion seen Gallbladder: Probable cholelithiasis. Biliary ducts: No biliary dilation. Pancreas: No ductal dilation. Spleen: Splenomegaly measuring 15.5 cm Adrenal Glands: No adrenal nodules. Kidneys and Ureters: No hydronephrosis. No solid mass. No complex renal cystic lesion which requires follow up. Stomach and Bowel: Normal colonic caliber, without significant wall thickening. Peritoneum: No abnormal intraperitoneal fluid. No free air. Ventral Wall: No significant ventral hernia. Abdominal Nodes: No retroperitoneal or mesenteric adenopathy by size criteria. Vessels: Aorta and inferior vena cava are normal in size. PELVIS: Pelvic Organs: There is a left adnexal cystic lesion measuring 9.6 x 8.8 cm. This appears displaced superiorly and anteriorly, into the upper pelvis. The uterus is slightly displaced to the left. There is a 4.8 x 3.4 cm slightly hyperdense structure along the medial aspect of the cystic lesion, which may represent a hemorrhagic component or a solid adnexal mass. Slight surrounding fat stranding. Bladder: No bladder wall thickening, accounting for underdistention. Pelvic Nodes: No enlarged lymph nodes. Miscellaneous: No inguinal hernias are seen. Bones: No aggressive osseous abnormality. IMPRESSION: 1. There is a large left adnexal cystic lesion with findings suspicious for associated torsion. This can be better assessed with MRI. 2. Significant hepatomegaly with signs of chronic hepatocellular disease and splenomegaly. Dictated by: Bob Hernandez M.D. on 01/11/2025 at 20:14 Approved by: Bob Hernandez M.D. on 01/11/2025 at 20:23
--- NOTE | 2025-01-11 19:00 | DI.RAD.S_ITS ---
PROCEDURE: XR CHEST 1V INDICATIONS: PAIN TECHNIQUE: One view of the chest was acquired. COMPARISON: [facility], CR, XR CHEST 1V, 07/25/2024, 1:55. FINDINGS: Surgical changes and devices: None. Lungs and pleura: Lungs are clear. No pleural effusions or pneumothorax. Mediastinum: Mediastinal contours appear normal. Heart size is normal. Bones and chest wall: No suspicious bony lesions. Overlying soft tissues appear unremarkable. IMPRESSION: No acute cardiopulmonary abnormality is seen. Dictated by: Bob Hernandez M.D. on 01/11/2025 at 19:36 Approved by: Bob Hernandez M.D. on 01/11/2025 at 19:36
[2025-01-11 19:05] LABS: Add Manual Diff / Slide Review NO; Hematocrit 34.4 % (36-46); Hemoglobin 11.2 g/dL (12.0-16.0); Lymphocytes Absolute Auto 1900 /uL (1100-4500); Mean Corpuscular HGB Conc 32.5 % (30-36); Mean Corpuscular Hemoglobin 25.7 PG (26-34); Mean Corpuscular Volume 79.3 fL (80-100); Platelet Count 301 X10^3/uL (150-400)
[2025-01-11 19:16] LABS: Alanine Aminotransferase 20 IU/L (<35); Albumin 4.4 g/dL (3.5-5.0); Albumin Globulin Ratio 1.3 (1.0-2.8); Alkaline Phosphatase 110 U/L (38-126); Blood Urea Nitrogen 19 mg/dL (7-17); Calcium 9.1 mg/dL (8.4-10.2); Carbon Dioxide 30 mmol/L (22-32); Chloride 95 mmol/L (98-107); Estimated Glomerular Filt Rate > 60 mL/min (>60); Globulin 3.4 g/dL (1.7-4.1); Glucose 100 mg/dL (70-99); HEMOLYSIS < 15 (0-50); Lipase 76 U/L (23-300); Potassium 3.9 mmol/L (3.4-5.1); Sodium 137 mmol/L (137-145); Total Protein 7.8 g/dL (6.3-8.2)
[2025-01-11 19:17] LABS: Lactate (Lactic Acid) 2.5 mmol/L (0.7-2.1)
--- NOTE | 2025-01-11 19:17 | EKG_ITS ---
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
[2025-01-11 19:34] LABS: Procalcitonin 0.050 ng/mL (<0.5)
[2025-01-11 19:44] LABS: Appearance Urine UA CLEAR; Bilirubin Urine UA NEGATIVE (NEGATIVE); Color Urine UA YELLOW; Glucose Urine UA NEGATIVE (Negative); Ketones Urine UA NEGATIVE (NEGATIVE); Leukocyte Esterase Urine UA NEGATIVE (NEGATIVE); Nitrite Urine UA NEGATIVE (Negative); Occult Blood Urine UA NEGATIVE (Negative); Protein Urine UA NEGATIVE (Negative); Specific Gravity Urine UA <=1.005 (1.000-1.035); Urobilinogen Urine UA 0.2 E.U./dL (0.2)
[2025-01-11] MEDS: ACETAMINOPHEN IV 1,000 MG/100 ML VIAL 400 MG IV (19:44)
[2025-01-11 19:47] LABS: pH Urine UA 5.5 (4.5-8.0)
[2025-01-11] MEDS: ONDANSETRON 4 MG/2 ML INJ IV (19:49)
[2025-01-11 19:55] LABS: Culture Indicated Urine Cult Not Indicated
[2025-01-11 20:38] LABS: Reflexed Lactate in 2 Hours Y
[2025-01-11 21:15] LABS: Lactate 2HR (Lactic Acid Rflx) 1.8 mmol/L (0.7-2.1)
[2025-01-11] MEDS: SODIUM CHLORIDE 0.9% 1,000 ML 1000 ML IV (21:52)
--- NOTE | 2025-01-11 22:51 | ED.ABDPAIN ---
HPI - Abdominal Pain General Chief Complaint: Abdominal Pain Stated Complaint: R sided abd pain Time Seen by Provider: 01/11/25 18:42 Source: patient and EMS Mode of arrival: EMS History of Present Illness HPI narrative: 64-YEAR-OLD WOMAN WITH EXTENSIVE PAST MEDICAL HISTORY COMES TO THE ER BECAUSE OF RIGHT LOWER QUADRANT ABDOMINAL PAIN WHICH HAS BEEN WORSENING OVER THE LAST DAY. SHE STATES THAT SHE HAS BEEN DEALING WITH RIGHT UPPER QUADRANT PAIN FOR AWHILE AND THERE ARE PLANS BEING PUT IN THE PLACE TO HAVE A CHOLECYSTECTOMY BECAUSE OF GALLBLADDER SLUDGING AND STONES WHICH IS CAUSING PAIN. SHE DENIES ANY FEVER, CHILLS, SWEATS BUT ADMITS TO SOME NAUSEA BUT DENIES VOMITING. SHE DENIES ANY DIARRHEA OR BLOOD IN HER STOOL OR VOMIT. SHE DENIES ANY DYSURIA, URGENCY, FREQUENCY, ABNORMAL VAGINAL DISCHARGE OR BLEEDING. SHE HAS NO OTHER CONCERNS OR COMPLAINTS AT THIS TIME. Related Data Home Medications ?Medication ?Instructions ?Recorded ?Confirmed acetaminophen 500 mg tablet 1,000 mg BID PRN Pain (Scale Score 12/05/23 11/04/24 1-3) apixaban 5 mg tablet (Eliquis) 5 mg PO BID 12/05/23 11/04/24 atorvastatin 40 mg tablet 40 mg PO DAILY 12/05/23 11/04/24 benzonatate 100 mg capsule 100 mg PO DAILY PRN Cough 12/05/23 11/04/24 digoxin 250 mcg (0.25 mg) tablet 250 mcg PO QPM 12/05/23 11/04/24 diltiazem HCl 300 mg capsule,24 300 mg PO DAILY 12/05/23 11/04/24 hr,extended release fluticasone propionate 50 2 spray intranasal DAILY ALLERGY 12/05/23 11/04/24 mcg/actuation nasal spray,suspension guaifenesin 600 mg tablet, 600 mg PO BID 12/05/23 11/04/24 extended release 12 hr insulin glargine 100 unit/mL (3 10 unit SUBCUT DAILY 12/05/23 11/04/24 mL) subcutaneous pen (Lantus Solostar U-100 Insulin) levothyroxine 150 mcg tablet 150 mcg PO QAM 12/05/23 11/04/24 liothyronine 25 mcg tablet 25 mcg PO QAM 12/05/23 11/04/24 magnesium chloride 64 mg 64 mg PO DAILY 12/05/23 11/04/24 tablet,extended release metformin 1,000 mg 24 hr 1,000 mg PO BID 12/05/23 11/04/24 tablet,extended release (gastric reten.) potassium chloride 20 mEq 20 meq PO BID 12/05/23 11/04/24 tablet,extended release(part/cryst) sertraline 100 mg tablet 200 mg PO DAILY 12/05/23 11/04/24 sitagliptin phosphate 50 mg tablet 50 mg PO DAILY 12/05/23 11/04/24 (Januvia) tizanidine 4 mg tablet 4 mg PO Q6H PRN Muscle Spasm 12/05/23 11/04/24 torsemide 20 mg tablet 40 mg PO BID 12/05/23 11/04/24 ipratropium 0.5 mg-albuterol 3 mg 3 ml inhalation Q8HR 12/08/23 11/04/24 (2.5 mg base)/3 mL nebulization soln Chewable Vitamin C 250 mg PO DAILY 07/24/24 11/04/24 melatonin 10 mg tablet 10 mg PO BEDTIME 07/24/24 11/04/24 oxycodone 10 mg tablet 10 mg PO Q6HR PRN Pain, Severe 07/24/24 11/04/24 omeprazole 40 mg capsule,delayed 40 mg PO DAILY 07/27/24 11/04/24 release Previous Rx's ?Medication ?Instructions ?Recorded ferrous sulfate 325 mg (65 mg 325 mg PO DAILY #30 tabs 12/12/23 iron) tablet acetaminophen 325 mg tablet 650 mg (2 x 325 mg) PO Q6H PRN 01/10/24 Fever/Mild Pain (1-3) #30 tabs methadone 10 mg tablet 10 mg PO BID #60 tabs 01/10/24 pregabalin 75 mg capsule 75 mg PO BID #60 caps 01/10/24 budesonide-formoterol HFA 160 2 puff inhalation BID #10.2 grams 06/29/24 mcg-4.5 mcg/actuation aerosol inhaler (Symbicort) cephalexin 500 mg capsule 500 mg PO QID #28 caps 07/27/24 doxycycline hyclate 100 mg capsule 100 mg PO BID #14 caps 07/27/24 Allergies Allergy/AdvReac Type Severity Reaction Status Date / Time Sulfa (Sulfonamide Allergy Verified 11/04/24 15:22 Antibiotics) Patient History Medical History Asthma Obesity hypoventilation syndrome Chronic hypoxic respiratory failure Anxiety Depression CHF (congestive heart failure) COPD (chronic obstructive pulmonary disease) Diabetic nephropathy GERD (gastroesophageal reflux disease) Hypothyroid Afib Diabetes Surgical History History of incision and drainage Social History household members: none alcohol intake: never Smoking Status: Former smoker tobacco type: cigarettes Exam Initial Vital Signs Initial Vital Signs: Vital Signs Pulse Rate 77 01/11/25 18:42 Blood Pressure 150/66 H 01/11/25 18:42 Pulse Oximetry 97 01/11/25 18:42 Const General: No in distress and No lethargic Nutritional Appearance: obese HENMT Head: normal to inspection and normocephalic Ears: hearing grossly normal bilaterally Face and sinus: normal facial exam Eyes General: Yes appearance normal, both eyes and all related structures Neck Neck: normal visual inspection and no meningeal signs Resp Effort & Inspection: normal respiratory effort Auscultation: clear to auscultation bilaterally Cardio Rate: regular rate Rhythm: abnormal rhythm Heart Sounds: S1 normal and S2 normal GI Palpation: soft, No firm, No guarding, No hernia, No mass, tender (NO REBOUND, TENDERNESS WORST IN RLQ) and other Back/Spine/Pelvis Back: No CVA tenderness Course Course Course Narrative: PATIENT SEEN AND EXAMINED BY MYSELF ONCE THEY WERE ROOMED IN THE ER. LABORATORY EVALUATION WAS SIGNIFICANT ONLY FOR MILD LEUKOCYTOSIS OF 15. SHE ALSO HAD SOME LACTIC ACIDEMIA WHICH RESOLVED WITH [address] SHOWED CONCERN FOR A LEFT-SIDED OVARIAN TORSION SECONDARY TO A LARGE CYST. I DISCUSSED THE CASE WITH DR. ACUNA FROM [facility] [address] AND HE ACCEPTED THE PATIENT FOR TRANSFER AND IS PLANNING TO DO SURGERY TONIGHT. THE PATIENT HAS BEEN NPO SINCE SHE HAS BEEN IN THE ER. Orders Ordered: ED Orders 01/11/25 18:55 Complete Blood Count AUTO DIFF Stat Comprehensive Metabolic Panel Stat Lactate (Lactic Acid) Stat Lipase Stat Procalcitonin Stat 01/11/25 18:57 EKG-12 Lead Stat 01/11/25 18:58 EKG-12 Lead Stat 01/11/25 18:59 CT abdomen pelvis w con Stat 01/11/25 19:00 Chest [XR chest 1V] Stat 01/11/25 19:20 Urinalysis and Microscopic Stat Ondansetron HCl (Ondansetron 4 Mg/2 Ml Inj) 4 mg IV NOW PRN PRN Reason: Nausea And Vomiting Ondansetron HCl (Ondansetron 4 Mg Odt) 4 mg PO NOW PRN PRN Reason: Nausea And Vomiting Discontinued Medications Hydromorphone HCl (Hydromorphone 1 Mg/Ml Syringe) 1 mg IV NOW ONE Stop: 01/11/25 21:37 Last Admin: 01/11/25 21:52 Dose: 1 mg Documented By: CHANEL Acetaminophen (Ofirmev) 1,000 mg in 100 mls @ 400 mls/hr IV NOW ONE Stop: 01/11/25 19:12 Last Infusion: 01/11/25 20:28 Dose: Infused Documented By: Admin: 01/11/25 19:44 Dose: 400 mls/hr Documented By: CHANEL Sodium Chloride (Normal Saline 0.9%) 1,000 mls @ 1,000 mls/hr IV BOLUS ONE Stop: 01/11/25 21:13 Last Admin: 01/11/25 21:52 Dose: 1,000 mls/hr Documented By: CHANEL Ondansetron HCl (Ondansetron 4 Mg/2 Ml Inj) 4 mg IV NOW ONE Stop: 01/11/25 18:59 Last Admin: 01/11/25 19:49 Dose: 4 mg Documented By: CHANEL Vital Signs Vital signs: Vital Signs - 8 hr 01/11/25 18:42 01/11/25 18:42 01/11/25 18:43 Temperature 98.6 F Pulse Rate 77 88 Respiratory Rate 16 Blood Pressure 150/66 H 150/66 H Pulse Oximetry 97 97 Oxygen Delivery Method Room Air Oxygen Flow Rate 01/11/25 19:00 01/11/25 19:00 01/11/25 19:31 Temperature Pulse Rate 87 87 Respiratory Rate 20 23 Blood Pressure 155/68 H Pulse Oximetry 96 Oxygen Delivery Method Room Air Oxygen Flow Rate 01/11/25 21:48 01/11/25 22:00 01/11/25 22:01 Temperature Pulse Rate 80 84 Respiratory Rate 15 16 Blood Pressure 122/67 Pulse Oximetry 90 L 89 L 86 L Oxygen Delivery Method Room Air Room Air Oxygen Flow Rate 01/11/25 22:03 01/11/25 22:30 Temperature Pulse Rate 81 Respiratory Rate 24 Blood Pressure Pulse Oximetry 95 96 Oxygen Delivery Method Nasal Cannula Nasal Cannula Oxygen Flow Rate 1 1 MDM - Abdominal Pain Lab Data 01/11/25 18:55 01/11/25 18:55 Labs: Lab Results 01/11/25 01/11/25 01/11/25 Range/Units 18:55 19:20 20:53 WBC 15.0 H (4.5-11.0) X10^3/uL RBC 4.33 (4.0-5.2) X10^6/uL Hgb 11.2 L (12.0-16.0) g/dL Hct 34.4 L (36-46) % MCV 79.3 L (80-100) fL MCH 25.7 L (26-34) PG MCHC 32.5 (30-36) % RDW 17.4 H (11.6-14.8) % Plt Count 301 (150-400) X10^3/uL Neut % (Auto) 79.6 H (50-75) % Lymph % (Auto) 12.7 L (25-40) % [place] % (Auto) 5.4 (3-14) % Eos % (Auto) 1.8 L (2-4) % Baso % (Auto) 0.5 (0-2) % Neut # (Auto) 34581 H (7253-1827) /uL Lymph # (Auto) 1900 (3603-2459) /uL [place] # (Auto) 800 (0-900) /uL Eos # (Auto) 300 (0-450) /uL Baso # (Auto) 100 (0-100) /uL Sodium 137 (137-145) mmol/L Potassium 3.9 (3.4-5.1) mmol/L Chloride 95 L (98-107) mmol/L Carbon Dioxide 30 (22-32) mmol/L BUN 19 H (7-17) mg/dL Creatinine 0.94 (0.52-1.04) mg/dL Estimated GFR > 60 (>60) mL/min BUN/Creatinine Ratio 20.2 (6-22) Glucose 100 H (70-99) mg/dL Lactate 2.5 H 1.8 (0.7-2.1) mmol/L Calcium 9.1 (8.4-10.2) mg/dL Total Bilirubin 0.8 (0.2-1.3) mg/dL AST 25 (14-36) IU/L ALT 20 (<35) IU/L Alkaline Phosphatase 110 (38-126) U/L Total Protein 7.8 (6.3-8.2) g/dL Albumin 4.4 (3.5-5.0) g/dL Globulin 3.4 (1.7-4.1) g/dL Albumin/Globulin Ratio 1.3 (1.0-2.8) Lipase 76 (23-300) U/L Procalcitonin 0.050 (<0.5) ng/mL Urine Color Yellow Urine Appearance Clear Urine pH 5.5 (4.5-8.0) Ur Specific [place] <=1.005 (1.000-1.035) Urine Protein Negative (Negative) Urine Glucose (UA) Negative (Negative) g/dL Urine Ketones Negative (NEGATIVE) Urine Occult Blood Negative (Negative) Urine Nitrate Negative (Negative) Urine Bilirubin Negative (NEGATIVE) Urine Urobilinogen 0.2 (0.2) E.U./dL Ur Leukocyte Esterase Negative (NEGATIVE) Urine RBC None seen (0-5/HPF) Urine WBC None seen (0-5/HPF) Ur Squamous Epith Cells 0-1 /hpf (0-5/HPF) Urine Bacteria Occasional (0-1) (None) Ur Culture Indicated? Cult not indicated Vol Urine Centrifuged 10ml (spun) Point of care testing: Urine Dip Bedside Urine Glucose Negative Bedside Urine Bilirubin - Negative Bedside Urine Ketone - Negative Urine Specific [place] 1.015 Bedside Urine Occult Blood - Negative Bedside Urine pH 6.0 Bedside Urine Protein - Negative Bedside Urine Urobilinogen - Negative Bedside Urine Nitrite - Negative Bedside Urine Leukocytes - Negative Esterase ECG Data Interpretation: AFIB. RATE 88. QTC 384. Discharge Plan Departure Patient Disposition: [facility] Clinical Impression: Acquired ovarian torsion Prescriptions: No Action atorvastatin 40 mg tablet 40 mg PO DAILY digoxin 250 mcg (0.25 mg) tablet 250 mcg PO QPM diltiazem HCl 300 mg capsule,extended release 24 hr 300 mg PO DAILY Eliquis 5 mg tablet 5 mg PO BID fluticasone propionate 50 mcg/actuation spray,suspension 2 spray intranasal DAILY insulin glargine [Lantus Solostar U-100 Insulin] 100 unit/mL (3 mL) insulin pen 10 unit SUBCUT DAILY Patient Comments: [NO ORIGINAL SIG] guaifenesin 600 mg Tablet Extended Release 12hr 600 mg PO BID Januvia 50 mg tablet 50 mg PO DAILY levothyroxine 150 mcg tablet 150 mcg PO QAM liothyronine 25 mcg tablet 25 mcg PO QAM magnesium chloride 64 mg Tablet Extended Release 64 mg PO DAILY metformin 1,000 mg tablet,ER [place]ouglas.retention 24 hr 1,000 mg PO BID potassium chloride 20 mEq tablet,ER particles/crystals 20 meq PO BID sertraline 100 mg tablet 200 mg PO DAILY Rx Instructions: daily in the morning torsemide 20 mg tablet 40 mg PO BID Rx Instructions: takes it at noon acetaminophen 500 mg Tablet 1,000 mg BID PRN (Reason: Pain (Scale Score 1-3)) Rx Instructions: either regular or extra strength not both benzonatate 100 mg Capsule 100 mg PO DAILY PRN (Reason: Cough) tizanidine 4 mg tablet 4 mg PO Q6H PRN (Reason: Muscle Spasm) ipratropium-albuterol 0.5 mg-3 mg(2.5 mg base)/3 mL Solution For Nebulization 3 ml INHALATION Q8HR ferrous sulfate 325 mg (65 mg iron) tablet 325 mg PO DAILY Qty: 30 0RF acetaminophen 325 mg Tablet 650 mg PO Q6H PRN (Reason: Fever/Mild Pain (1-3)) Qty: 30 0RF Rx Instructions: either regular or extra strength not both methadone 10 mg tablet 10 mg PO BID Qty: 60 0RF pregabalin 75 mg capsule 75 mg PO BID Qty: 60 0RF melatonin 10 mg Tablet 10 mg PO BEDTIME oxycodone 10 mg tablet 10 mg PO Q6HR PRN (Reason: Pain, Severe) Chewable Vitamin C 250 mg 250 mg PO DAILY omeprazole 40 mg capsule,delayed release(DR/EC) 40 mg PO DAILY cephalexin 500 mg capsule 500 mg PO QID Qty: 28 0RF doxycycline hyclate 100 mg capsule 100 mg PO BID Qty: 14 0RF budesonide-formoterol [Symbicort] 160-4.5 mcg/actuation HFA aerosol inhaler 2 puff inhalation BID Qty: 10.2 5RF Referrals: Graciela Abdi MD [Primary Care Provider, Family Practice]
== END 2025-01-11 23:30 | disposition short-term general hospital (02) ==
PROVIDERS: Emergency Provider Emergency Medicine; PCP Family Medicine
DX: N83.512 Torsion of left ovary and ovarian pedicle (principal); R07.9 Chest pain, unspecified; I48.91 Unspecified atrial fibrillation; Z79.01 Long term (current) use of anticoagulants
CPT/HCPCS: 36415; 51701; 71045; 74177; 80053; 81001; 81003; 83605; 83690; 84145; 85025; 93005; 96361; 96365; 96375; 96376; 99285; J0131; J1171; J2405; Q9967